=== PATIENT | male | born 1950 | race Caucasian/White ===

== ENCOUNTER 2016-11-18 11:59 | Inpatient (IN) | payer OTHER, MEDICARE ==
[~2016-11-18] VITALS: Ht 170.2 cm; Wt 78.0 kg
[2016-11-18] MEDS ORDERED: ZOLPIDEM TARTRATE 5 MG TAB PO PRN (14:15)
[2016-11-18] MEDS ORDERED: ONDANSETRON INJ 2 MG/ML 2 ML VIAL IV PRN (14:15)
[2016-11-18] MEDS ORDERED: GLUCAGON FOR INJ 1 MG VIAL SQ PRN (14:15)
[2016-11-18] MEDS ORDERED: GLUCOSE 10 TABS/TUBE PO PRN (14:15)
[2016-11-18] MEDS ORDERED: DEXTROSE 50% 50 ML SYR IV PRN (14:15)
[2016-11-18] MEDS ORDERED: GLUCOSE 40% GEL 15 GM TUBE PO PRN (14:15)
[2016-11-18 14:23] VITALS: BP 159/104; PULSE 84; TEMP 36.7; O2SAT 94; BMI 27.1
[2016-11-18] MEDS ORDERED: NURSING VERBAL MED ORDER ONE (14:45)
[2016-11-18] MEDS ORDERED: CARVEDILOL 25 MG TAB PO STA (14:52)
[2016-11-18] MEDS ORDERED: PATIENT'S ALLERGY INFO NEEDS ENTERED SCH (15:15)
[2016-11-18 15:17] LABS: BASO % 0.5 %; BASO ABS # 0.03 K/uL (0-0.2); EOS % 5.6 %; IG% 0.2 %; LYMPH % 21.7 %; LYMPH ABS # 1.24 K/uL (1.2-3.4); MEAN CELL VOLUME 88.6 fL (80-100); MEAN CORPUSCULAR HEMOGLOBIN 31.4 pg (25-34); MEAN PLATELET VOLUME 9.9 fL (7.4-10.4); MONO % 8.7 %; NEUT % 63.3 %; PLATELET COUNT 209 K/uL (130-400); RED BLOOD COUNT 4.74 M/uL (4.7-6.1); WHITE BLOOD COUNT 5.72 K/uL (4.8-10.8)
[2016-11-18 15:21] LABS: COMPLETE YES; MEAN CORPUSCULAR HGB CONC 35.5 g/dl (32-36)
[2016-11-18] MEDS ORDERED: CARV25TA2 PO (15:26)
[2016-11-18] MEDS ORDERED: SIMV40TA2 PO (15:26)
[2016-11-18] MEDS ORDERED: IBUP-1428 PO (15:26)
[2016-11-18] MEDS ORDERED: METF-384 PO (15:26)
[2016-11-18] MEDS ORDERED: SITA100T3 PO (15:26)
[2016-11-18] MEDS ORDERED: AMLO-110 PO (15:26)
[2016-11-18] MEDS ORDERED: ASPI-461 (15:26)
[2016-11-18] MEDS ORDERED: GLIP10TA10 (15:26)
[2016-11-18 15:29] LABS: INR 1.1 (0.9-1.1); PROTHROMBIN TIME (PATIENT) 11.4 SECONDS (9.0-12.0)
--- NOTE | 2016-11-18 15:41 | History and Physical ---
History & Physical Date & Time of Service: Nov 18, 2016 at 15:39 Chief Complaint: Pancreatic Cancer W/Liver Mets Primary Care Physician: Isai Chambers MD, Urology History of Present Illness Source: patient The patient is a 66-year-old male who presented to [facility] emergency department with 6 weeks of abdominal discomfort and nausea. He underwent a CT of the abdomen and pelvis during his stay there, which was significant for pancreatic lesions and hepatic lesions suggestive of pancreatic cancer with metastases to the liver. He was then referred to [facility] for further evaluation. Family History Non-contributory Social History Smoking Status: Former Smoker Smokeless Tobacco Use: No Alcohol Use: none Drug Use: none Marital Status: Housing status: lives with family Occupational Status: retired Immunizations History of Influenza Vaccine: Unknown History of Tetanus Vaccine?: Unknown History of Pneumococcal: Unknown History of Hepatitis B Vaccine: Unknown Multi-Drug Resistant Organisms History of MDRO: No Allergies Coded Allergies: Lisinopril (Verified Adverse Reaction, Unknown, cough, 11/18/16) Home Medications Scheduled Amlodipine (Norvasc), 5 MG PO DAILY Carvedilol (Coreg), 1 TAB PO BID Metformin Hcl (Glucophage), 1,000 MG PO BID Simvastatin (Zocor), 40 MG PO QPM Sitagliptin Phosphate (Januvia), 100 MG PO DAILY Scheduled PRN Ibuprofen (Motrin), 800 MG PO for Pain Miscellaneous Medications Aspirin (Aspirin) Glipizide (Glipizide) Review of Systems The patient denies chest pain, palpitations, shortness of breath, cough, lower extremity swelling, vision change, hearing change, sore throat, fevers, chills, sweats, vomiting, diarrhea or constipation, blood in urine or stool, dysuria, urinary frequency or urgency, lightheadedness, dizziness, headache, memory loss , rash, abnormal bruising or bleeding, imbalance, focal or generalized weakness , numbness or tingling in arms or legs, generalized arthralgias or myalgias, back or neck pain, night sweats. The review of systems is otherwise negative other than for that already noted above, and at least 10 systems have been reviewed. Physical Exam Vital Signs Date Time Temp Pulse Resp B/P (MAP) Pulse Ox O2 Delivery O2 Flow Rate FiO2 11/18/16 14:23 36.7 84 20 159/104 94 Room Air The patient is awake, well-developed and adequately nourished, alert and oriented 3, normocephalic and atraumatic, lying in bed and in no acute distress. HEENT--PERRL, EOMI, mucous membranes and oropharynx normal. Neck--supple, no JVD or bruits, thyroid normal, trachea midline, no adenopathy. Heart--normal S1 and S2, no extra beats, no murmurs, rubs or gallops. Lungs--clear bilaterally with good air movement, no respiratory distress, no accessory muscle use. Abdomen--normal bowel sounds and soft, nontender and nondistended, no hernias or masses, no organomegaly. Extremities--no cyanosis, clubbing or edema. There are good distal pulses b/l. Dermatologic--normal skin turgor, normal color, warm and dry, no abnormal lymph nodes, no rash. Neurologic--cranial nerves II through XII grossly intact, motor and sensory examination normal. Rheumatologic--normal range of motion, nontender, muscles and joints. Psychiatric--normal affect. Diagnostics Laboratory Results Results Past 24 Hours Test 11/18/16 14:57 Range/Units White Blood Count 5.72 4.8-10.8 K/uL Red Blood Count 4.74 4.7-6.1 M/uL Hemoglobin 14.9 14.0-18.0 g/dL Hematocrit 42.0 42-52 % Mean Corpuscular Volume 88.6 80-100 fL Mean Corpuscular Hemoglobin 31.4 25-34 pg Mean Corpuscular Hemoglobin Concent 35.5 32-36 g/dl Platelet Count 209 130-400 K/uL Mean Platelet Volume 9.9 7.4-10.4 fL Neutrophils (%) (Auto) 63.3 % Lymphocytes (%) (Auto) 21.7 % Monocytes (%) (Auto) 8.7 % Eosinophils (%) (Auto) 5.6 % Basophils (%) (Auto) 0.5 % Neutrophils # (Auto) 3.62 1.4-6.5 K/uL Lymphocytes # (Auto) 1.24 1.2-3.4 K/uL Monocytes # (Auto) 0.50 0.11-0.59 K/uL Eosinophils # (Auto) 0.32 0-0.5 K/uL Basophils # (Auto) 0.03 0-0.2 K/uL RDW Standard Deviation 41.9 36.4-46.3 fL RDW Coefficient of Variation 13.0 11.5-14.5 % Immature Granulocyte % (Auto) 0.2 % Immature Granulocyte # (Auto) 0.01 0.00-0.02 K/uL Prothrombin Time 11.4 9.0-12.0 SECONDS Prothromb Time International Ratio 1.1 0.9-1.1 Activated Partial Thromboplast Time 25.9 21.0-31.0 SECONDS Partial Thromboplastin Ratio 1.0 Impression Assessment and Plan Presumptive pancreatic cancer with metastases to liver--patient is admitted to the medical floor. He'll be made nothing by mouth after midnight Schedule an ultrasound-guided liver biopsy by radiology tomorrow. Place on normal saline with KCl 20 mEq 100 ML's per hour. Famotidine 20 mg IV every 12 hours. Zofran 4 mg IV every 6 hours when necessary. Diabetes mellitus--hold . Glipizide, Januvia and metformin Place on Accu-Cheks before meals and at bedtime with NovoLog coverage per scale. Hypertension--continue carvedilol 25 mg by mouth twice a day, and amlodipine 5 mg by mouth daily. Hyperlipidemia--continue simvastatin 40 mg by mouth daily Level of Care Med/Surg Advanced Directives Existing Advance Directive: Yes Existing Living Will: No Existing Power of Director Of Curriculum And Instruction: No Resuscitation Status DO NOT RESUSCITATE VTE Prophylaxis VTE Risk Assessment Done? Y/N: Yes Risk Level: Moderate Given or contraindicated: SCD's Social Service Consult None Apply
[2016-11-18 15:45] VITALS: BP 145/88; PULSE 76; TEMP 36.4; O2SAT 96
[2016-11-18 15:46] LABS: BUN/CREATININE RATIO 13.6 (10-20); CALCIUM 9.1 mg/dl (8.5-10.1); CREATININE 0.76 mg/dl (0.60-1.40); POTASSIUM 4.1 mmol/L (3.5-5.1)
[2016-11-18 15:48] LABS: ALB/GLOB RATIO 0.9 (0.9-2)
[2016-11-18 15:55] LABS: AMYLASE 86 U/L (25-115)
[2016-11-18 17:17] VITALS: BP 147/89
--- NOTE | 2016-11-18 17:17 | Oncology Consultation ---
Oncology/Heme Consultation Date of Consultation: Nov 18, 2016. Attending Physician: Kavin Castellanos M.D. Reason for Consultation: Small pancreatic carcinoma with liver metastases History of Present Illness Mr. Lin is a 66-year-old gentleman that for the past 6 weeks has had some midepigastric discomfort. This led to a CT scan done yesterday at [facility] that showed a pancreatic mass as well as small lesions within the liver consistent with hepatic metastasis. The patient was transferred here for further diagnostic studies. He denies any weight loss. Denies any nausea vomiting or change of bowel habits. His past medical history includes a myocardial infarction in the past and he has a history of 12 years of diabetes. Past Medical/Surgical History Pancreatica lesion with possible liver metastasis Family History No family history of carcinoma for what I can gather Social History Negative for significant smoking or alcohol usage. Smoking Status: Former Smoker Smokeless Tobacco Use: No Alcohol Use: none Drug Use: none Marital Status: Occupation Status: retired Allergies Coded Allergies: Lisinopril (Verified Adverse Reaction, Unknown, cough, 11/18/16) Home Medications Scheduled Amlodipine (Norvasc), 5 MG PO DAILY Carvedilol (Coreg), 1 TAB PO BID Metformin Hcl (Glucophage), 1,000 MG PO BID Simvastatin (Zocor), 40 MG PO QPM Sitagliptin Phosphate (Januvia), 100 MG PO DAILY Scheduled PRN Ibuprofen (Motrin), 800 MG PO for Pain Miscellaneous Medications Aspirin (Aspirin) Glipizide (Glipizide) Current Inpatient Medications Current Inpatient Medications Medications (Trade) Dose Ordered Sig/[place] Route Start Time Stop Time Status Last Admin Dose Admin Zolpidem Tartrate (Ambien Tab) 5 mg HSZ PRN PO 11/18/16 14:15 12/18/16 14:14 Ondansetron HCl (Zofran Inj) 4 mg Q6H PRN IV 11/18/16 14:15 12/18/16 14:14 Insulin Aspart (novoLOG ASPART) SLIDING SCALE If C... ACHS SC 11/18/16 16:30 12/18/16 16:29 Glucose (Glucose 40% Gel) UD PRN PO 11/18/16 14:15 12/18/16 14:14 Glucose (Glucose Chew Tab) 1 tabs UD PRN PO 11/18/16 14:15 12/18/16 14:14 Dextrose (Dextrose 50% 50ML Syringe) 50 ml UD PRN IV 11/18/16 14:15 12/18/16 14:14 Glucagon (Glucagon Inj) 1 mg UD PRN SQ 11/18/16 14:15 12/18/16 14:14 Amlodipine Besylate (Norvasc Tab) 5 mg DAILY PO 11/19/16 08:00 12/19/16 07:59 Carvedilol (Coreg Tab) 25 mg BID PO 11/18/16 20:00 12/18/16 19:59 Simvastatin (Zocor Tab) 40 mg QPM PO 11/18/16 21:00 12/18/16 20:59 Review of Systems Constitutional: Negative for weight loss, night sweats, or fever Eyes: Negative for event change of vision ENT: Negative for epistaxis, nasal discharge, sore throat, or deafness Cardiovascular: Negative for chest pain, palpitations, dizziness, diaphoresis Respiratory: Negative for new shortness of breath,hemoptysis, or purulent cough Gastrointestinal: Negative for diarrhea, hematemesis, melena, nausea, vomiting , or dyspepsia Integumentary (skin): Negative for rash or jaundice discoloration Genitourinary: Negative for urinary frequency, hematuria, or dysuria Neurological: Negative for weakness, seizure activity, headache, or dizziness Lymphatic/Hematologic: Negative for petechiae, bleeding or new adenopathy Musculoskeletal: Negative for new joint or back pain Allergic/Immunologic: Negative for unusual rash or pruritis. Physical Exam Date Time Temp Pulse Resp B/P (MAP) Pulse Ox O2 Delivery O2 Flow Rate FiO2 11/18/16 16:00 Room Air 11/18/16 15:45 36.4 76 18 145/88 (107) 96 Room Air 11/18/16 14:23 36.7 84 20 159/104 94 Room Air Constitutional: vitals are stable. Eyes: Eyes are ALBERT EOMI without conjuctival erythema or icterus. ENT: External examination was negative for masses. Neck: Negative for masses or palpable thyromegaly Respiratory: Lung sounds were generally clear bilaterally Cardiovascular: Heart was RRR without significant murmur, gallops or rubs Gastrointestinal: No palpable hepatic or splenomegaly. The abdomen was soft with normal bowel sounds. Lymphatic system: there was no palpable peripheral lymphadenopathy Musculoskeletal System: The musculoskeletal system seemed concordant with age. Skin: The skin was negative for jaundice. Neurologic exam: The exam was negative for any focal findings. Deep tendon reflexes were equal and symmetrical. Psychiatric exam: Was essentially negative with normal mood and effect. Extremities: Negative for edema erythema Laboratory Results Last 24 Hours Test 11/18/16 14:57 11/18/16 16:56 White Blood Count 5.72 K/uL Red Blood Count 4.74 M/uL Hemoglobin 14.9 g/dL Hematocrit 42.0 % Mean Corpuscular Volume 88.6 fL Mean Corpuscular Hemoglobin 31.4 pg Mean Corpuscular Hemoglobin Concent 35.5 g/dl Platelet Count 209 K/uL Mean Platelet Volume 9.9 fL Neutrophils (%) (Auto) 63.3 % Lymphocytes (%) (Auto) 21.7 % Monocytes (%) (Auto) 8.7 % Eosinophils (%) (Auto) 5.6 % Basophils (%) (Auto) 0.5 % Neutrophils # (Auto) 3.62 K/uL Lymphocytes # (Auto) 1.24 K/uL Monocytes # (Auto) 0.50 K/uL Eosinophils # (Auto) 0.32 K/uL Basophils # (Auto) 0.03 K/uL RDW Standard Deviation 41.9 fL RDW Coefficient of Variation 13.0 % Immature Granulocyte % (Auto) 0.2 % Immature Granulocyte # (Auto) 0.01 K/uL Prothrombin Time 11.4 SECONDS Prothromb Time International Ratio 1.1 Activated Partial Thromboplast Time 25.9 SECONDS Partial Thromboplastin Ratio 1.0 Sodium Level 140 mmol/L Potassium Level 4.1 mmol/L Chloride Level 107 mmol/L Carbon Dioxide Level 27 mmol/L Anion Gap 6.0 mmol/L Blood Urea Nitrogen 10 mg/dl Creatinine 0.76 mg/dl Est Creatinine Clear Calc Drug Dose 88.2 ml/min Estimated GFR () 109.4 Estimated GFR (Non- 94.4 BUN/Creatinine Ratio 13.6 Random Glucose 206 mg/dl Calcium Level 9.1 mg/dl Total Bilirubin 0.4 mg/dl Direct Bilirubin 0.1 mg/dl Aspartate Amino Transf (AST/SGOT) 31 U/L Alanine Aminotransferase (ALT/SGPT) 55 U/L Alkaline Phosphatase 100 U/L Total Protein 7.4 gm/dl Albumin 3.5 gm/dl Globulin 3.9 gm/dl Albumin/Globulin Ratio 0.9 Amylase Level 86 U/L Lipase 462 U/L Hepatitis C Antibody Screen NEG Bedside Glucose 178 mg/dl Assessment & Plan Did review his CT scan that was done at [facility]. There is a pancreatic lesion perhaps even to lesions within the pancreas. No definite adenopathy is seen. There were nodules within the liver that are quite small multiple and could be biopsied although it might be difficult. I did review this with radiology. They will attempt an ultrasound-guided biopsy tomorrow. If that is not successful then GI will need to be consulted for possible endoscopic ultrasound biopsy. This was reviewed with the patient this evening as well as Dr. Castellanos
[2016-11-18] MEDS: INSULIN ASPART 100 UNITS/ML 3 ML PEN SC SCH ×2 (18:03→20:29)
[2016-11-18 19:27] VITALS: BP 149/91; PULSE 80; TEMP 36.8; O2SAT 95
[2016-11-18] MEDS: CARVEDILOL 25 MG TAB PO SCH (20:30)
[2016-11-18] MEDS: SIMVASTATIN 40 MG TAB PO SCH (20:30)
[2016-11-19] VITALS (8 sets, daily range): BP systolic 124–163; BP diastolic 82–99; PULSE 74–90; TEMP 36.5–36.8; O2SAT 94–97; BMI 26.8
[2016-11-19 07:38] LABS: BASO % 0.4 %; BASO ABS # 0.03 K/uL (0-0.2); COMPLETE YES; EOS % 4.4 %; HEMATOCRIT 43.2 % (42-52); IG% 0.1 %; LYMPH % 26.8 %; LYMPH ABS # 1.94 K/uL (1.2-3.4); MEAN CELL VOLUME 87.1 fL (80-100); MEAN CORPUSCULAR HEMOGLOBIN 31.5 pg (25-34); MEAN CORPUSCULAR HGB CONC 36.1 g/dl (32-36); MEAN PLATELET VOLUME 10.1 fL (7.4-10.4); MONO % 8.2 %; NEUT % 60.1 %; PLATELET COUNT 228 K/uL (130-400); RED BLOOD COUNT 4.96 M/uL (4.7-6.1); WHITE BLOOD COUNT 7.23 K/uL (4.8-10.8)
[2016-11-19 07:54] LABS: INR 1.1 (0.9-1.1); PROTHROMBIN TIME (PATIENT) 11.4 SECONDS (9.0-12.0)
[2016-11-19] MEDS: AMLODIPINE BESYLATE 5 MG TAB PO SCH (07:57)
[2016-11-19] MEDS: CARVEDILOL 25 MG TAB PO SCH ×2 (07:58→20:10)
[2016-11-19 08:10] LABS: BUN/CREATININE RATIO 15.3 (10-20); CALCIUM 9.5 mg/dl (8.5-10.1); CREATININE 0.79 mg/dl (0.60-1.40); POTASSIUM 3.9 mmol/L (3.5-5.1)
[2016-11-19] MEDS ORDERED: MoRPHine SULFATE 4 MG/ML 1 ML CARP\\VIAL ONE (08:13)
[2016-11-19] MEDS ORDERED: NURSING VERBAL MED ORDER ONE (08:15)
[2016-11-19] MEDS: INSULIN ASPART 100 UNITS/ML 3 ML PEN SC SCH ×4 (08:40→20:10)
--- NOTE | 2016-11-19 08:59 | GASTROINTESTINAL CONSULTATION ---
DATE OF CONSULTATION: 11/19/2016 DATE OF CONSULTATION: 11/19/2016 REASON FOR EVALUATION: Pancreatic tumor. HISTORY OF PRESENT ILLNESS: The patient is a 66-year-old male with 12-year history of diabetes who has had a 6-week history of upper abdominal pain. The pain is kind of diffuse in nature and is worse when lying on his back. He does have a little bit of right flank pain associated with it. This led to a CAT scan at [facility] which showed a mass in the pancreas and 6 or 7 lesions in the liver suggestive of hepatic metastases. The patient was transferred to [facility] for further evaluation. The patient has had no loss of appetite, weight loss, nausea or vomiting. He is scheduled for an ultrasound guided biopsy of liver lesions about 2:00 this afternoon. PAST MEDICAL HISTORY: Remarkable for diabetes for 12 years. He also had an LA in the past. MEDICATIONS: Norvasc, Coreg, Glucophage, Zocor, and Januvia. ALLERGIES: LISINOPRIL. FAMILY HISTORY: Negative. SOCIAL HISTORY: The patient is . He is retired, former smoker. No history of significant alcohol use. REVIEW OF SYSTEMS: Positive only for the abdominal pain. Otherwise, negative for other systems. PHYSICAL EXAMINATION: GENERAL: The patient appears awake, alert, in no acute distress. VITAL SIGNS: Blood pressure is 145/88, pulse 76, respirations 18. ABDOMEN: Soft. There is no mass or hepatosplenomegaly, no tenderness. There is no adenopathy in the periumbilical area, cervical or supraclavicular areas. Skin was nonicteric. LABORATORY: Showed normal liver tests. Lipase was elevated at 462. Amylase was normal at 86. IMPRESSION: The patient has upper abdominal pain with a pancreatic lesion and liver lesion suggestive of pancreatic cancer with liver mets. He is scheduled for ultrasound guided liver biopsy today. If this is positive for malignant cells then he is probably not an operative candidate. If they are not successful in getting adequate tissue today then he may be a candidate for endoscopic ultrasound which we may be able to accomplish later this week if needed. We will follow the patient during his hospital stay.
--- NOTE | 2016-11-19 11:01 | Hematology/Oncology Prog Note ---
Hematology/Onc Progress Note Date of Service Nov 19, 2016. Diagnoses Possible pancreatic carcinoma with liver metastasis Medications Medications Administered Medications (Trade) Dose Ordered Sig/[place] Route Start Time Stop Time Status Last Admin Dose Admin Insulin Aspart (novoLOG ASPART) SLIDING SCALE If C... ACHS SC 11/18/16 16:30 12/18/16 16:29 11/18/16 18:03 6 UNITS Carvedilol (Coreg Tab) 25 mg NOW STAT PO 11/18/16 14:52 11/18/16 14:53 DC 11/18/16 15:34 25 MG Amlodipine Besylate (Norvasc Tab) 5 mg DAILY PO 11/19/16 08:00 12/19/16 07:59 11/19/16 07:57 5 MG Carvedilol (Coreg Tab) 25 mg BID PO 11/18/16 20:00 12/18/16 19:59 11/19/16 07:58 25 MG Simvastatin (Zocor Tab) 40 mg QPM PO 11/18/16 21:00 12/18/16 20:59 11/18/16 20:30 40 MG Morphine Sulfate (MoRPHine SULFATE INJ) 4 mg STK-MED ONCE .ROUTE 11/19/16 08:13 11/19/16 08:14 DC 11/19/16 08:19 4 MG Subjective Seems to be doing well. Scheduled for a ultrasound-guided biopsy of liver lesions for this afternoon Review of Systems: Constitutional: Negative for night sweats, or fever Eyes: Negative for event change of vision ENT: Negative for epistaxis, nasal discharge, sore throat, or deafness Cardiovascular: Negative for chest pain, palpitations, dizziness, diaphoresis Respiratory: Negative for new shortness of breath,hemoptysis, or purulent cough Gastrointestinal: Negative for diarrhea, hematemesis, melena, nausea, vomiting , or dyspepsia Integumentary (skin): Negative for rash or jaundice discoloration Genitourinary: Negative for urinary frequency, hematuria, or dysuria Neurological: Negative for weakness, seizure activity, headache, or dizziness Lymphatic/Hematologic: Negative for petechiae, bleeding or new adenopathy Musculoskeletal: Negative for new joint or back pain Allergic/Immunologic: Negative for unusual rash or pruritis. Vital Signs Vital Signs Past 12 Hours Date Time Temp Pulse Resp B/P (MAP) Pulse Ox O2 Delivery O2 Flow Rate FiO2 11/19/16 08:22 36.7 90 20 158/98 (118) 95 Room Air 11/19/16 04:12 36.6 75 20 163/99 (120) 97 Room Air 11/19/16 00:23 36.5 74 20 155/97 (116) 94 Room Air 11/19/16 00:01 Room Air 11/18/16 23:56 Room Air Physical Exam Constitutional: vitals are stable. Eyes: Eyes are ALBERT EOMI without conjuctival erythema or icterus. ENT: External examination was negative for masses. Neck: Negative for masses or palpable thyromegaly Respiratory: Lung sounds were generally clear bilaterally Cardiovascular: Heart was RRR without significant murmur, gallops aoe rubs Gastrointestinal: No palpable hepatic or splenomegaly. The abdomen was soft with normal bowel sounds. Lymphatic system: there was no palpable peripheral lymphadenopathy Musculoskeletal System: The musculoskeletal system seemed concordant with age. Skin: The skin was negative for jaundice. Neurologic exam: The exam was negative for any focal findings. Deep tendon reflexes were equal and symmetrical. Psychiatric exam: Was essentially negative with normal mood and effect. Extremities: Negative for edema erythema Laboratory Last 24 Hours Test 11/18/16 14:57 11/18/16 16:56 11/18/16 19:48 11/19/16 06:49 White Blood Count 5.72 K/uL 7.23 K/uL Red Blood Count 4.74 M/uL 4.96 M/uL Hemoglobin 14.9 g/dL 15.6 g/dL Hematocrit 42.0 % 43.2 % Mean Corpuscular Volume 88.6 fL 87.1 fL Mean Corpuscular Hemoglobin 31.4 pg 31.5 pg Mean Corpuscular Hemoglobin Concent 35.5 g/dl 36.1 g/dl Platelet Count 209 K/uL 228 K/uL Mean Platelet Volume 9.9 fL 10.1 fL Neutrophils (%) (Auto) 63.3 % 60.1 % Lymphocytes (%) (Auto) 21.7 % 26.8 % Monocytes (%) (Auto) 8.7 % 8.2 % Eosinophils (%) (Auto) 5.6 % 4.4 % Basophils (%) (Auto) 0.5 % 0.4 % Neutrophils # (Auto) 3.62 K/uL 4.34 K/uL Lymphocytes # (Auto) 1.24 K/uL 1.94 K/uL Monocytes # (Auto) 0.50 K/uL 0.59 K/uL Eosinophils # (Auto) 0.32 K/uL 0.32 K/uL Basophils # (Auto) 0.03 K/uL 0.03 K/uL RDW Standard Deviation 41.9 fL 41.8 fL RDW Coefficient of Variation 13.0 % 13.1 % Immature Granulocyte % (Auto) 0.2 % 0.1 % Immature Granulocyte # (Auto) 0.01 K/uL 0.01 K/uL Prothrombin Time 11.4 SECONDS 11.4 SECONDS Prothromb Time International Ratio 1.1 1.1 Activated Partial Thromboplast Time 25.9 SECONDS 26.7 SECONDS Partial Thromboplastin Ratio 1.0 1.0 Sodium Level 140 mmol/L 136 mmol/L Potassium Level 4.1 mmol/L 3.9 mmol/L Chloride Level 107 mmol/L 102 mmol/L Carbon Dioxide Level 27 mmol/L 23 mmol/L Anion Gap 6.0 mmol/L 11.0 mmol/L Blood Urea Nitrogen 10 mg/dl 12 mg/dl Creatinine 0.76 mg/dl 0.79 mg/dl Est Creatinine Clear Calc Drug Dose 88.2 ml/min 84.9 ml/min Estimated GFR () 109.4 107.7 Estimated GFR (Non- 94.4 92.9 BUN/Creatinine Ratio 13.6 15.3 Random Glucose 206 mg/dl 194 mg/dl Calcium Level 9.1 mg/dl 9.5 mg/dl Total Bilirubin 0.4 mg/dl 0.5 mg/dl Direct Bilirubin 0.1 mg/dl 0.1 mg/dl Aspartate Amino Transf (AST/SGOT) 31 U/L 22 U/L Alanine Aminotransferase (ALT/SGPT) 55 U/L 48 U/L Alkaline Phosphatase 100 U/L 103 U/L Total Protein 7.4 gm/dl 7.7 gm/dl Albumin 3.5 gm/dl 3.7 gm/dl Globulin 3.9 gm/dl Albumin/Globulin Ratio 0.9 Amylase Level 86 U/L Lipase 462 U/L Hepatitis C Antibody Screen NEG Bedside Glucose 178 mg/dl 151 mg/dl Magnesium Level 2.0 mg/dl Test 11/19/16 08:21 Bedside Glucose 195 mg/dl Assessment & Plan CT scan changes consistent with possible pancreatic neoplasm with liver metastasis. Ultrasound-guided biopsy of the liver is scheduled for this afternoon. He is aware that if these small lesions cannot be assessed by ultrasound that an endoscopic GI biopsy may be necessary
--- NOTE | 2016-11-19 12:32 | Progress Note ---
Subjective Date of Service: Nov 19, 2016. Subjective Pt evaluation today including: conversation w/ patient, physical exam, chart review, lab review, review of studies, conversation w/ recruitment consultant, review of inpatient medication list Doing fair, no complaining, is on nothing by mouth, planning to have biopsy this afternoon Review of Systems Constitutional: No fever, No chills, No sweats, No weight loss, No weakness, No fatigue, No problem reported Eyes: No worsening of vision, No eye pain, No redness, No discharge, No diplopia ENT: No hearing loss, No unusual epistaxis, No nasal symptoms, No sore throat, No tinnitus, No dental problems, No trouble swallowing Respiratory: No cough, No sputum, No wheezing, No shortness of breath, No dyspnea on exertion, No dyspnea at rest, No hemoptysis Cardiac: No chest pain, No orthopnea, No PND, No edema, No claudication, No palpitations Abdomen: No pain, No nausea, No vomiting, No diarrhea, No constipation Musculoskeletal: No joint pain, No muscle pain, No swelling, No calf pain Male : No dysuria, No urinary frequency, No incontinence, No nocturia more than once/night, No slowing stream, No hematuria Neurologic: No memory loss, No paralysis, No weakness, No numbness/tingling, No vertigo, No balance problems Psychiatric: No depression symptoms, No anhedonism, No anxiety, No insomnia, No substance abuse Heme: No abnormal bleeding/bruising, No clotting problems, No swollen lymph nodes, No night sweats Endo: No fatigue, No excessive thirst, No excessive urination Skin: No rash, No itch, No new/changing skin lesions, No color change, No bleeding Objective Vital Signs Date Time Temp Pulse Resp B/P (MAP) Pulse Ox O2 Delivery O2 Flow Rate FiO2 11/19/16 11:27 36.6 77 18 142/82 (102) 94 Room Air 11/19/16 11:20 Room Air 11/19/16 08:22 36.7 90 20 158/98 (118) 95 Room Air 11/19/16 04:12 36.6 75 20 163/99 (120) 97 Room Air 11/19/16 00:23 36.5 74 20 155/97 (116) 94 Room Air 11/19/16 00:01 Room Air 11/18/16 23:56 Room Air 11/18/16 19:27 36.8 80 18 149/91 (110) 95 Room Air 11/18/16 17:17 147/89 (108) 11/18/16 16:00 Room Air 11/18/16 15:45 36.4 76 18 145/88 (107) 96 Room Air 11/18/16 14:23 36.7 84 20 159/104 94 Room Air Physical Exam General Appearance: WD/WN, no apparent distress Eyes: normal inspection, PERRL, EOMI, sclerae normal ENT: normal ENT inspection, hearing grossly normal, pharynx normal Neck: supple, no adenopathy, thyroid normal, no JVD, no carotid bruits, trachea midline Respiratory/Chest: chest non-tender, lungs clear, normal breath sounds, no respiratory distress, no accessory muscle use, + decreased breath sounds Cardiovascular: regular rate, rhythm, no edema, no gallop, no JVD, no murmur Abdomen: normal bowel sounds, non tender, soft, no organomegaly, no pulsatile mass Extremities: normal range of motion, non-tender, normal inspection, no pedal edema, no calf tenderness, normal capillary refill, pelvis stable 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, no motor/sensory deficits, alert, normal mood/affect, oriented x 3 Skin: normal color, warm/dry, no rash Lymphatic: no adenopathy Laboratory Results Last 24 Hours Test 11/18/16 14:57 11/18/16 16:56 11/18/16 19:48 11/19/16 06:49 White Blood Count 5.72 K/uL 7.23 K/uL Red Blood Count 4.74 M/uL 4.96 M/uL Hemoglobin 14.9 g/dL 15.6 g/dL Hematocrit 42.0 % 43.2 % Mean Corpuscular Volume 88.6 fL 87.1 fL Mean Corpuscular Hemoglobin 31.4 pg 31.5 pg Mean Corpuscular Hemoglobin Concent 35.5 g/dl 36.1 g/dl Platelet Count 209 K/uL 228 K/uL Mean Platelet Volume 9.9 fL 10.1 fL Neutrophils (%) (Auto) 63.3 % 60.1 % Lymphocytes (%) (Auto) 21.7 % 26.8 % Monocytes (%) (Auto) 8.7 % 8.2 % Eosinophils (%) (Auto) 5.6 % 4.4 % Basophils (%) (Auto) 0.5 % 0.4 % Neutrophils # (Auto) 3.62 K/uL 4.34 K/uL Lymphocytes # (Auto) 1.24 K/uL 1.94 K/uL Monocytes # (Auto) 0.50 K/uL 0.59 K/uL Eosinophils # (Auto) 0.32 K/uL 0.32 K/uL Basophils # (Auto) 0.03 K/uL 0.03 K/uL RDW Standard Deviation 41.9 fL 41.8 fL RDW Coefficient of Variation 13.0 % 13.1 % Immature Granulocyte % (Auto) 0.2 % 0.1 % Immature Granulocyte # (Auto) 0.01 K/uL 0.01 K/uL Prothrombin Time 11.4 SECONDS 11.4 SECONDS Prothromb Time International Ratio 1.1 1.1 Activated Partial Thromboplast Time 25.9 SECONDS 26.7 SECONDS Partial Thromboplastin Ratio 1.0 1.0 Sodium Level 140 mmol/L 136 mmol/L Potassium Level 4.1 mmol/L 3.9 mmol/L Chloride Level 107 mmol/L 102 mmol/L Carbon Dioxide Level 27 mmol/L 23 mmol/L Anion Gap 6.0 mmol/L 11.0 mmol/L Blood Urea Nitrogen 10 mg/dl 12 mg/dl Creatinine 0.76 mg/dl 0.79 mg/dl Est Creatinine Clear Calc Drug Dose 88.2 ml/min 84.9 ml/min Estimated GFR () 109.4 107.7 Estimated GFR (Non- 94.4 92.9 BUN/Creatinine Ratio 13.6 15.3 Random Glucose 206 mg/dl 194 mg/dl Calcium Level 9.1 mg/dl 9.5 mg/dl Total Bilirubin 0.4 mg/dl 0.5 mg/dl Direct Bilirubin 0.1 mg/dl 0.1 mg/dl Aspartate Amino Transf (AST/SGOT) 31 U/L 22 U/L Alanine Aminotransferase (ALT/SGPT) 55 U/L 48 U/L Alkaline Phosphatase 100 U/L 103 U/L Total Protein 7.4 gm/dl 7.7 gm/dl Albumin 3.5 gm/dl 3.7 gm/dl Globulin 3.9 gm/dl Albumin/Globulin Ratio 0.9 Amylase Level 86 U/L Lipase 462 U/L Hepatitis C Antibody Screen NEG Bedside Glucose 178 mg/dl 151 mg/dl Magnesium Level 2.0 mg/dl Test 11/19/16 08:21 11/19/16 11:25 Bedside Glucose 195 mg/dl 219 mg/dl Assessment and Plan 66-year-old white male admitted because of presumptive pancreatic cancer with metastases to liver GI and oncology on the case, recent CT scan changes consistent with possible pancreatic neoplasm with liver metastasis. Ultrasound-guided biopsy of the liver is scheduled for this afternoon. He is aware that if these small lesions cannot be assessed by EUS biopsy may be necessary Continue nothing by mouth Continue normal saline with KCl 20 mEq 100 ML's per hour. Famotidine 20 mg IV every 12 hours. Zofran 4 mg IV every 6 hours when necessary. Diabetes mellitus: hold . Glipizide, Januvia and metformin Continue sliding scale Hypertension--continue carvedilol 25 mg by mouth twice a day, and amlodipine 5 mg by mouth daily. Hyperlipidemia--continue simvastatin 40 mg by mouth daily GI and DVT prophylaxis is covered Discussed with patient about care plan, answer all questions Continued [facility] stay due to: multiple IV medications needed Discharge planning: uncertain
--- NOTE | 2016-11-19 15:06 | DIAGNOSTIC IMAGING REPORT ---
ULTRASOUND GUIDED BIOPSY OF RIGHT HEPATIC LOBE LESION CLINICAL HISTORY: Liver lesions. Request for biopsy. COMPARISON STUDY: CT of the abdomen and pelvis November 18, 2016. PROCEDURE: Preprocedure ultrasound demonstrated multiple hypoechoic hepatic lesions which correspond to the lesions shown on CT of November 18, 2016. These measure up to 1 cm. The lesion most amenable to biopsy was within the anterior segment of the right hepatic lobe and measures 9 mm. This was targeted for biopsy. The procedure, risks and benefits were discussed with the patient including the risk of bleeding, infection and injury to adjacent structures. The patient agreed to the procedure and informed written consent was obtained. The procedure was performed by Dr. Vogt following a timeout. Skin of the right upper quadrant was prepped and draped in sterile fashion and local anesthesia was achieved with 1% lidocaine. Under direct ultrasound guidance, 3 22-gauge fine needle aspirations were performed utilizing Gigi needles. The needle tip within the target lesion 3 times. Atypical cells were noted on the second pass. Adequacy was borderline. No additional sampling was performed given 3 passes and the small size of the lesion. The patient tolerated the procedure well and no immediate complications were evident. IMPRESSION: Ultrasound guided fine needle aspiration of 9 mm right hepatic lobe lesion. Electronically signed by: Jeb Vogt M.D. 11/19/2016 3:05 PM Dictated Date/Time: 11/19/2016 3:02 PM
[2016-11-19] MEDS: SIMVASTATIN 40 MG TAB PO SCH (20:10)
[2016-11-20] VITALS (7 sets, daily range): BP systolic 104–148; BP diastolic 71–92; PULSE 65–74; TEMP 36.5–36.8; O2SAT 92–97; BMI 26.6
[2016-11-20 06:40] LABS: BASO % 0.3 %; BASO ABS # 0.02 K/uL (0-0.2); COMPLETE YES; EOS % 4.9 %; HEMATOCRIT 42.5 % (42-52); IG% 0.1 %; LYMPH % 27.3 %; LYMPH ABS # 2.08 K/uL (1.2-3.4); MEAN CELL VOLUME 88.7 fL (80-100); MEAN CORPUSCULAR HEMOGLOBIN 30.3 pg (25-34); MEAN CORPUSCULAR HGB CONC 34.1 g/dl (32-36); MEAN PLATELET VOLUME 9.8 fL (7.4-10.4); MONO % 6.8 %; NEUT % 60.6 %; PLATELET COUNT 218 K/uL (130-400); RED BLOOD COUNT 4.79 M/uL (4.7-6.1); WHITE BLOOD COUNT 7.61 K/uL (4.8-10.8)
[2016-11-20 06:55] LABS: INR 1.1 (0.9-1.1); PROTHROMBIN TIME (PATIENT) 11.5 SECONDS (9.0-12.0)
[2016-11-20 07:15] LABS: BUN/CREATININE RATIO 20.2 (10-20); CALCIUM 9.1 mg/dl (8.5-10.1); CREATININE 0.94 mg/dl (0.60-1.40); MAGNESIUM 2.2 mg/dl (1.8-2.4); POTASSIUM 4.3 mmol/L (3.5-5.1)
[2016-11-20] MEDS: AMLODIPINE BESYLATE 5 MG TAB PO SCH (08:27)
[2016-11-20] MEDS: CARVEDILOL 25 MG TAB PO SCH ×2 (08:27→19:34)
[2016-11-20] MEDS: INSULIN ASPART 100 UNITS/ML 3 ML PEN SC SCH ×4 (08:34→20:45)
--- NOTE | 2016-11-20 10:06 | Hematology/Oncology Prog Note ---
Hematology/Onc Progress Note Date of Service Nov 20, 2016. Diagnoses Possible pancreatic carcinoma with liver metastasis Medications Medications Administered Medications (Trade) Dose Ordered Sig/[place] Route Start Time Stop Time Status Last Admin Dose Admin Insulin Aspart (novoLOG ASPART) SLIDING SCALE If C... ACHS SC 11/18/16 16:30 12/18/16 16:29 11/20/16 08:34 9 UNITS Carvedilol (Coreg Tab) 25 mg NOW STAT PO 11/18/16 14:52 11/18/16 14:53 DC 11/18/16 15:34 25 MG Amlodipine Besylate (Norvasc Tab) 5 mg DAILY PO 11/19/16 08:00 12/19/16 07:59 11/20/16 08:27 5 MG Carvedilol (Coreg Tab) 25 mg BID PO 11/18/16 20:00 12/18/16 19:59 11/20/16 08:27 25 MG Simvastatin (Zocor Tab) 40 mg QPM PO 11/18/16 21:00 12/18/16 20:59 11/19/16 20:10 40 MG Morphine Sulfate (MoRPHine SULFATE INJ) 4 mg STK-MED ONCE .ROUTE 11/19/16 08:13 11/19/16 08:14 DC 11/19/16 08:19 4 MG Subjective Offers no new complaints today Review of Systems: Constitutional: Negative for night sweats, or fever Eyes: Negative for event change of vision ENT: Negative for epistaxis, nasal discharge, sore throat, or deafness Cardiovascular: Negative for chest pain, palpitations, dizziness, diaphoresis Respiratory: Negative for new shortness of breath,hemoptysis, or purulent cough Gastrointestinal: Negative for diarrhea, hematemesis, melena, nausea, vomiting , or dyspepsia Integumentary (skin): Negative for rash or jaundice discoloration Genitourinary: Negative for urinary frequency, hematuria, or dysuria Neurological: Negative for weakness, seizure activity, headache, or dizziness Lymphatic/Hematologic: Negative for petechiae, bleeding or new adenopathy Musculoskeletal: Negative for new joint or back pain Allergic/Immunologic: Negative for unusual rash or pruritis. Vital Signs Vital Signs Past 12 Hours Date Time Temp Pulse Resp B/P (MAP) Pulse Ox O2 Delivery O2 Flow Rate FiO2 8/30/17 08:26 36.5 72 18 148/92 (110) 93 Room Air 11/20/16 08:00 Room Air 11/20/16 04:41 36.7 71 20 136/87 (103) 97 Room Air 11/20/16 00:29 36.6 67 20 132/84 (100) 97 Room Air 11/20/16 00:05 Room Air Physical Exam Constitutional: vitals are stable. Eyes: Eyes are ALBERT EOMI without conjuctival erythema or icterus. ENT: External examination was negative for masses. Neck: Negative for masses or palpable thyromegaly Respiratory: Lung sounds were generally clear bilaterally Cardiovascular: Heart was RRR without significant murmur, gallops aoe rubs Gastrointestinal: No palpable hepatic or splenomegaly. The abdomen was soft with normal bowel sounds. Lymphatic system: there was no palpable peripheral lymphadenopathy Musculoskeletal System: The musculoskeletal system seemed concordant with age. Skin: The skin was negative for jaundice. Neurologic exam: The exam was negative for any focal findings. Deep tendon reflexes were equal and symmetrical. Psychiatric exam: Was essentially negative with normal mood and effect. Extremities: Negative for edema erythema Laboratory Last 24 Hours Test 11/19/16 11:25 11/19/16 16:37 11/19/16 20:07 11/20/16 06:19 Bedside Glucose 219 mg/dl 231 mg/dl 140 mg/dl White Blood Count 7.61 K/uL Red Blood Count 4.79 M/uL Hemoglobin 14.5 g/dL Hematocrit 42.5 % Mean Corpuscular Volume 88.7 fL Mean Corpuscular Hemoglobin 30.3 pg Mean Corpuscular Hemoglobin Concent 34.1 g/dl Platelet Count 218 K/uL Mean Platelet Volume 9.8 fL Neutrophils (%) (Auto) 60.6 % Lymphocytes (%) (Auto) 27.3 % Monocytes (%) (Auto) 6.8 % Eosinophils (%) (Auto) 4.9 % Basophils (%) (Auto) 0.3 % Neutrophils # (Auto) 4.61 K/uL Lymphocytes # (Auto) 2.08 K/uL Monocytes # (Auto) 0.52 K/uL Eosinophils # (Auto) 0.37 K/uL Basophils # (Auto) 0.02 K/uL RDW Standard Deviation 42.7 fL RDW Coefficient of Variation 13.1 % Immature Granulocyte % (Auto) 0.1 % Immature Granulocyte # (Auto) 0.01 K/uL Prothrombin Time 11.5 SECONDS Prothromb Time International Ratio 1.1 Activated Partial Thromboplast Time 25.3 SECONDS Partial Thromboplastin Ratio 1.0 Sodium Level 137 mmol/L Potassium Level 4.3 mmol/L Chloride Level 105 mmol/L Carbon Dioxide Level 26 mmol/L Anion Gap 6.0 mmol/L Blood Urea Nitrogen 19 mg/dl Creatinine 0.94 mg/dl Est Creatinine Clear Calc Drug Dose 71.3 ml/min Estimated GFR () 96.8 Estimated GFR (Non- 83.6 BUN/Creatinine Ratio 20.2 Random Glucose 188 mg/dl Calcium Level 9.1 mg/dl Magnesium Level 2.2 mg/dl Total Bilirubin 0.5 mg/dl Direct Bilirubin 0.1 mg/dl Aspartate Amino Transf (AST/SGOT) 15 U/L Alanine Aminotransferase (ALT/SGPT) 44 U/L Alkaline Phosphatase 92 U/L Total Protein 6.9 gm/dl Albumin 3.3 gm/dl Test 11/20/16 07:49 Bedside Glucose 192 mg/dl Assessment & Plan Preliminary look at the material from yesterday's liver biopsy does not definitely show metastatic carcinoma or even fact carcinoma. As I review this I believe it will be crucial to understand the defects in the liver. If in fact this is metastatic carcinoma to the liver then issues such as possible resection of a pancreatic lesion if in fact he has pancreatic carcinoma are removed from being an option. I reviewed this with the patient. I will check back with pathology in the next couple of hours to get any updates but if in fact he continues to be results continue to not show neoplasm then I would prefer a surgical laparoscopic assessment not only of the pancreas but also of the liver with biopsies of both the liver and pancreas to assess and understand the changes we see on x-ray. This could probably happen then as an outpatient.
[2016-11-20] MEDS ORDERED: NURSING VERBAL MED ORDER ONE (14:45)
--- NOTE | 2016-11-20 14:56 | Progress Note ---
Subjective Date of Service: Nov 20, 2016. Subjective Pt evaluation today including: conversation w/ patient, conversation w/ family , physical exam, chart review, lab review, review of studies, conversation w/ freight traffic consultant, review of inpatient medication list RUQ abd pain , sometimes need morphine, no other c/o Review of Systems Constitutional: No fever, No chills, No sweats, No weight loss, No weakness, No fatigue, No problem reported Eyes: No worsening of vision, No eye pain, No redness, No discharge, No diplopia ENT: No hearing loss, No unusual epistaxis, No nasal symptoms, No sore throat, No tinnitus, No dental problems, No trouble swallowing Respiratory: No cough, No sputum, No wheezing, No shortness of breath, No dyspnea on exertion, No dyspnea at rest, No hemoptysis Cardiac: No chest pain, No orthopnea, No PND, No edema, No claudication, No palpitations Abdomen: No pain, No nausea, No vomiting, No diarrhea, No constipation Musculoskeletal: No joint pain, No muscle pain, No swelling, No calf pain Male : No dysuria, No urinary frequency, No incontinence, No nocturia more than once/night, No slowing stream, No hematuria Neurologic: No memory loss, No paralysis, No weakness, No numbness/tingling, No vertigo, No balance problems Psychiatric: No depression symptoms, No anhedonism, No anxiety, No insomnia, No substance abuse Heme: No abnormal bleeding/bruising, No clotting problems, No swollen lymph nodes, No night sweats Endo: No fatigue, No excessive thirst, No excessive urination Skin: No rash, No itch, No new/changing skin lesions, No color change, No bleeding Objective Vital Signs Date Time Temp Pulse Resp B/P (MAP) Pulse Ox O2 Delivery O2 Flow Rate FiO2 11/20/16 11:22 36.6 65 17 122/77 (92) 95 Room Air 11/20/16 08:26 36.5 72 18 148/92 (110) 93 Room Air 11/20/16 08:00 Room Air 11/20/16 04:41 36.7 71 20 136/87 (103) 97 Room Air 11/20/16 00:29 36.6 67 20 132/84 (100) 97 Room Air 11/20/16 00:05 Room Air 11/19/16 20:09 36.7 77 18 137/88 (104) 95 Room Air 11/19/16 16:36 36.7 78 20 138/87 (104) 95 Room Air 11/19/16 16:00 Room Air 11/19/16 15:34 76 18 124/83 (97) 94 Room Air 11/19/16 14:58 36.8 74 20 152/92 (112) 96 Room Air Physical Exam General Appearance: WD/WN, no apparent distress Eyes: normal inspection, PERRL, EOMI, sclerae normal ENT: normal ENT inspection, hearing grossly normal, pharynx normal Neck: supple, no adenopathy, thyroid normal, no JVD, no carotid bruits, trachea midline Respiratory/Chest: chest non-tender, lungs clear, normal breath sounds, no respiratory distress, no accessory muscle use Cardiovascular: regular rate, rhythm, no edema, no gallop, no JVD, no murmur Abdomen: normal bowel sounds, non tender, soft, no organomegaly, no pulsatile mass Extremities: normal range of motion, non-tender, normal inspection, no pedal edema, no calf tenderness, normal capillary refill, pelvis stable 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, no motor/sensory deficits, alert, normal mood/affect, oriented x 3, + abnormal cerebellar tests Skin: normal color, warm/dry, no rash Lymphatic: no adenopathy Laboratory Results Last 24 Hours Test 11/19/16 16:37 11/19/16 20:07 11/20/16 06:19 11/20/16 07:49 Bedside Glucose 231 mg/dl 140 mg/dl 192 mg/dl White Blood Count 7.61 K/uL Red Blood Count 4.79 M/uL Hemoglobin 14.5 g/dL Hematocrit 42.5 % Mean Corpuscular Volume 88.7 fL Mean Corpuscular Hemoglobin 30.3 pg Mean Corpuscular Hemoglobin Concent 34.1 g/dl Platelet Count 218 K/uL Mean Platelet Volume 9.8 fL Neutrophils (%) (Auto) 60.6 % Lymphocytes (%) (Auto) 27.3 % Monocytes (%) (Auto) 6.8 % Eosinophils (%) (Auto) 4.9 % Basophils (%) (Auto) 0.3 % Neutrophils # (Auto) 4.61 K/uL Lymphocytes # (Auto) 2.08 K/uL Monocytes # (Auto) 0.52 K/uL Eosinophils # (Auto) 0.37 K/uL Basophils # (Auto) 0.02 K/uL RDW Standard Deviation 42.7 fL RDW Coefficient of Variation 13.1 % Immature Granulocyte % (Auto) 0.1 % Immature Granulocyte # (Auto) 0.01 K/uL Prothrombin Time 11.5 SECONDS Prothromb Time International Ratio 1.1 Activated Partial Thromboplast Time 25.3 SECONDS Partial Thromboplastin Ratio 1.0 Sodium Level 137 mmol/L Potassium Level 4.3 mmol/L Chloride Level 105 mmol/L Carbon Dioxide Level 26 mmol/L Anion Gap 6.0 mmol/L Blood Urea Nitrogen 19 mg/dl Creatinine 0.94 mg/dl Est Creatinine Clear Calc Drug Dose 71.3 ml/min Estimated GFR () 96.8 Estimated GFR (Non- 83.6 BUN/Creatinine Ratio 20.2 Random Glucose 188 mg/dl Calcium Level 9.1 mg/dl Magnesium Level 2.2 mg/dl Total Bilirubin 0.5 mg/dl Direct Bilirubin 0.1 mg/dl Aspartate Amino Transf (AST/SGOT) 15 U/L Alanine Aminotransferase (ALT/SGPT) 44 U/L Alkaline Phosphatase 92 U/L Total Protein 6.9 gm/dl Albumin 3.3 gm/dl Test 11/20/16 11:28 Bedside Glucose 294 mg/dl Assessment and Plan 66-year-old white male admitted because of presumptive pancreatic cancer with metastases to liver GI and oncology on the case, recent CT scan changes consistent with possible pancreatic neoplasm with liver metastasis. Ultrasound-guided biopsy of the liver was done, possible not enough tissue surgeon consult for possible surgical laparoscopic assessment, which would help not only of the pancreas but also of the liver with biopsies of both the liver and pancreas to assess and understand the changes in CT. pt has no pcp,surgeon consulted Diabetes mellitus: cont hold Glipizide, Januvia and metformin Continue sliding scale Hypertension--continue carvedilol 25 mg by mouth twice a day, and amlodipine 5 mg by mouth daily. Hyperlipidemia--continue simvastatin 40 mg by mouth daily GI and DVT prophylaxis is covered Discussed with patient about care plan, answer all questions Continued [facility] stay due to: home environment unsafe for pt Discharge planning: uncertain
[2016-11-20] MEDS ORDERED: OXYCODONE HCL IR 5 MG TAB (IMMEDIATE RELEASE) PO PRN (15:15)
[2016-11-20] MEDS: SIMVASTATIN 40 MG TAB PO SCH (20:42)
--- NOTE | 2016-11-20 22:51 | SURGICAL CONSULTATION ---
DATE OF CONSULTATION: 11/20/2016 I have been asked by Dr. Arce and Dr. Escobedo to see this 66-year-old male who initially had a complaint of very vague upper abdominal pain that had been going on for about a month. He underwent a CT scan of the abdomen and pelvis that I reviewed with the radiologist. It demonstrated 2 masses in the pancreas that were both suspicious for malignancy. The one mass was obstructing the splenic vein which was thrombosed. He also had lesions within the parenchyma of the liver, two of which are near the surface, although not immediately adjacent to the capsule at least by CT criteria. They are suspicious for metastatic disease. He underwent an FNA under ultrasound guidance of one of those lesions; however, the pathology revealed findings that are of hepatocytes with abnormal architecture, keeping ____ possibility of hepatocytic proliferation such as an adenoma or potentially a low-grade hepatocellular carcinoma. The patient denies abdominal pain. There is no nausea or vomiting. He has had a laparoscopic cholecystectomy in the past. There are no other abdominal procedures. He has no change in his bowel habits. PAST MEDICAL HISTORY: Type 2 diabetes, status post TX, hypertension and hypercholesterolemia. PAST SURGICAL HISTORY: Knee replacement on the left, rotator cuff repair on the right and laparoscopic cholecystectomy. MEDICATIONS AT HOME: Included Norvasc, Coreg, Glucophage, Zocor and Januvia. ALLERGIES: LISINOPRIL. SOCIAL HISTORY: He is a former smoker but did not use chewing tobacco and does not drink alcohol. PHYSICAL EXAMINATION: GENERAL: Reveals a well-developed, well-nourished male who appears in no acute distress. VITAL SIGNS: Blood pressure 104/71, heart rate 70, respiration 20, temperature 36.5, pulse oximetry is 94% on room air. HEENT: Exam reveals the sclerae to be anicteric. Mucous membranes are moist. NECK: Supple, with no JVD and no cervical or supraclavicular adenopathy. BACK: No spinal or CVA tenderness. LUNGS: Clear. HEART: Regular. ABDOMEN: Has normoactive bowel sounds, is soft, nondistended and is nontender with no masses or hepatomegaly. EXTREMITIES: Reveal no edema. LABORATORY DATA: WBC 7.61, H&H is 14.5 and 42.5, platelet count 218,000. Sodium 137, potassium 4.3, chloride 105, CO2 of 26, BUN 19, creatinine 0.94, glucose 188, total bilirubin 0.5, AST 15, ALT 44, alkaline phosphatase 92. RADIOLOGY: As per HPI. ASSESSMENT AND PLAN: This patient has what radiologically looks like carcinoma of the pancreas. There are liver lesions that are suspicious for metastatic disease but this was not confirmed by ultrasound-guided FNA. We have been asked to do a laparoscopy with an attempt to do liver biopsy under direct vision. I explained to the patient that there are at least 2 lesions that appear to be near the surface but it is not an absolute that we will be able to see them laparoscopically; if we do, we will do a biopsy. He understands that the risks would include infection and bleeding or delayed bleeding. He has signed a consent form.
[2016-11-21] VITALS (10 sets, daily range): BP systolic 116–153; BP diastolic 61–96; PULSE 65–89; TEMP 36.3–36.8; O2SAT 90–100; BMI 26.4
--- NOTE | 2016-11-21 07:00 | GASTROENTEROLOGY PROGRESS NOTE ---
DATE: 11/20/2016 The patient was seen and examined today. The patient was transferred from [facility] for abdominal pain where his lipase was elevated. However, incidental note was made of findings on CT scan of several lesions in the liver as well as 2 lesions in the pancreas body and uncinate region. The patient underwent an ultrasound-guided biopsy of one of the right lobe liver lesions but this was indeterminate. The patient is feeling better at this point. He is awake, alert. His medications were reviewed and reconciled. He is diabetic and had been on Januvia for several years, though stopped this a few months ago because of dietary changes that improved his sugar as well as the concerns of pancreatic cancer. IN-HOUSE MEDICATIONS: Include amlodipine, simvastatin, Coreg, insulin, Ambien and Zofran. REVIEW OF SYSTEMS: Otherwise noncontributory based on 13-point exam. The patient denies any prior history of pancreatitis and is unknown to have pancreatic or liver disorders or lesions. PHYSICAL EXAMINATION: GENERAL: Today, the patient is awake, alert and oriented x3. VITAL SIGNS: His blood pressure is 104/71, respirations 20, pulse 70, temperature 36.5, 94% on room air. HEENT: Sclerae anicteric. Conjunctivae moist. Oral mucosa moist. HEART: Normal S1, S2. LUNGS: Clear to auscultation. ABDOMEN: Soft, nontender, nondistended with good bowel sounds. EXTREMITIES: Without edema. RECTAL: Deferred. The patient with 2 lesions seen on outside CT scan. At the present time, I cannot access these images for review. However, it appears that plans are for an exploratory laparoscopy to assess the liver and sample if needed as well as address any pancreatic lesions or adenopathy. Alternatives to surgery include endoscopic ultrasound if these can be visualized and successfully sampled. At the present time, we will await results of exploratory laparoscopy. CA 19-9 and martin fetoprotein are pending at this time. Hepatitis C antibody is negative. All questions answered.
[2016-11-21 07:45] LABS: BASO % 0.4 %; BASO ABS # 0.03 K/uL (0-0.2); COMPLETE YES; HEMATOCRIT 42.6 % (42-52); IG% 0.1 %; LYMPH % 19.6 %; LYMPH ABS # 1.62 K/uL (1.2-3.4); MEAN CELL VOLUME 88.4 fL (80-100); MEAN CORPUSCULAR HEMOGLOBIN 30.9 pg (25-34); MEAN PLATELET VOLUME 9.7 fL (7.4-10.4); MONO % 6.3 %; NEUT % 67.6 %; PLATELET COUNT 236 K/uL (130-400); RED BLOOD COUNT 4.82 M/uL (4.7-6.1); WHITE BLOOD COUNT 8.28 K/uL (4.8-10.8)
[2016-11-21 07:55] LABS: INR 1.1 (0.9-1.1); PROTHROMBIN TIME (PATIENT) 11.5 SECONDS (9.0-12.0)
[2016-11-21 08:14] LABS: BUN/CREATININE RATIO 18.6 (10-20); CALCIUM 9.4 mg/dl (8.5-10.1); CREATININE 0.94 mg/dl (0.60-1.40); MAGNESIUM 2.2 mg/dl (1.8-2.4); POTASSIUM 4.3 mmol/L (3.5-5.1)
[2016-11-21] MEDS: INSULIN ASPART 100 UNITS/ML 3 ML PEN SC SCH ×4 (08:40→21:40)
[2016-11-21] MEDS ORDERED: FENTANYL CITRATE INJ 50 MCG/1 ML 2 ML VIAL IV PRN (10:30)
[2016-11-21] MEDS ORDERED: EpHEDrine SULFATE INJ 50 MG/ML AMP IV PRN (10:30)
[2016-11-21] MEDS ORDERED: ONDANSETRON INJ 2 MG/ML 2 ML VIAL IV PRN (10:30)
[2016-11-21] MEDS ORDERED: ATROPINE SULFATE 0.1 MG/ML 5ML SYR IV PRN (10:30)
[2016-11-21] MEDS ORDERED: BUPIVACAINE 0.5 % 5 MG/1 ML MPF 30ML VIAL ONE (10:47)
[2016-11-21] MEDS ORDERED: HEPARIN SOD (PORCINE) 1000 UNIT/ML 10 ML VIAL ONE (11:41)
[2016-11-21] MEDS ORDERED: CEFAZOLIN SOD 1 GM VIAL ONE (11:42)
--- NOTE | 2016-11-21 11:50 | History & Physical Bridge Note ---
H&P Re-Evaluation Bridge Note: I have examined the patient, reviewed the History & Physical and in the interval since the performance of the History & Physical I have noted the following changes of clinical significance: No changes noted
--- NOTE | 2016-11-21 13:20 | [facility] Post Operative Brief Note ---
Immediate Operative Summary Operative Date Nov 21, 2016. Pre-Operative Diagnosis Liver lesions Post-Operative Diagnosis Same as preop Procedure(s) Performed Diagnostic Laparoscopy, Liver Biopsy Surgeon Dr. Alicea Poultry Cutter Surgeon(s) Dr. Scott Estimated Blood Loss 10 cc Findings See dictation Specimens A: liver lesion Drains None Anesthesia General Complication(s) None Disposition Recovery Room / PACU
--- NOTE | 2016-11-21 14:09 | Anesthesiology Progress Note ---
Anesthesia Post Op Note Date & Time Nov 21, 2016 at 14:09 Vital Signs Pain Intensity: 0 Vital Signs Past 12 Hours Date Time Temp Pulse Resp B/P (MAP) Pulse Ox O2 Delivery O2 Flow Rate FiO2 11/21/16 14:00 71 16 147/96 94 Room Air 11/21/16 13:50 71 16 145/95 98 Oxymask 10 11/21/16 13:40 68 16 150/95 98 Oxymask 10 11/21/16 13:30 36.8 66 16 160/97 98 Oxymask 10 11/21/16 08:09 36.6 76 16 148/92 (110) 95 Room Air 11/21/16 08:00 Room Air 11/21/16 04:58 36.6 76 16 148/92 95 Room Air 11/21/16 04:40 36.6 70 20 116/61 (79) 100 Nasal Cannula 2.0 Notes Mental Status: alert / awake / arousable, participated in evaluation Pt Amnestic to Procedure: Yes Nausea / Vomiting: adequately controlled Pain: adequately controlled Airway Patency, RR, SpO2: stable & adequate BP & HR: stable & adequate Hydration State: stable & adequate Anesthetic Complications: no major complications apparent
--- NOTE | 2016-11-21 14:28 | Hematology/Oncology Prog Note ---
Hematology/Onc Progress Note Date of Service Nov 21, 2016. Diagnoses Possible pancreatic carcinoma with liver metastasis Medications Medications Administered Medications (Trade) Dose Ordered Sig/[place] Route Start Time Stop Time Status Last Admin Dose Admin Insulin Aspart (novoLOG ASPART) SLIDING SCALE If C... ACHS SC 11/18/16 16:30 12/18/16 16:29 11/21/16 08:40 3 UNITS Carvedilol (Coreg Tab) 25 mg NOW STAT PO 11/18/16 14:52 11/18/16 14:53 DC 11/18/16 15:34 25 MG Amlodipine Besylate (Norvasc Tab) 5 mg DAILY PO 11/19/16 08:00 12/19/16 07:59 11/20/16 08:27 5 MG Carvedilol (Coreg Tab) 25 mg BID PO 11/18/16 20:00 12/18/16 19:59 11/20/16 19:34 25 MG Simvastatin (Zocor Tab) 40 mg QPM PO 11/18/16 21:00 12/18/16 20:59 11/20/16 20:42 40 MG Morphine Sulfate (MoRPHine SULFATE INJ) 4 mg STK-MED ONCE .ROUTE 11/19/16 08:13 11/19/16 08:14 DC 11/19/16 08:19 4 MG Bupivacaine HCl (Marcaine 0.5% MPF Inj) 30 ml STK-MED ONCE .ROUTE 11/21/16 10:47 11/21/16 10:48 DC 11/21/16 13:00 20 ML Heparin Sodium (Porcine) (Heparin Iv Bolus) 10,000 unit STK-MED ONCE .ROUTE 11/21/16 11:41 11/21/16 11:42 DC 11/21/16 12:50 5,000 UNIT Cefazolin Sodium (Ancef Inj) 1,000 mg STK-MED ONCE .ROUTE 11/21/16 11:42 11/21/16 11:43 DC 11/21/16 12:50 1,000 MG Subjective Seen briefly postop in recovery room after laparoscopic assessment of his liver. He denies any new complaints and vitals are stable. Review of Systems: An overall review of systems was not obtained today by myself. Vital Signs Vital Signs Past 12 Hours Date Time Temp Pulse Resp B/P (MAP) Pulse Ox O2 Delivery O2 Flow Rate FiO2 8/31/17 14:00 71 16 147/96 94 Room Air 11/21/16 13:50 71 16 145/95 98 Oxymask 10 11/21/16 13:40 68 16 150/95 98 Oxymask 10 11/21/16 13:30 36.8 66 16 160/97 98 Oxymask 10 11/21/16 08:09 36.6 76 16 148/92 (110) 95 Room Air 11/21/16 08:00 Room Air 11/21/16 04:58 36.6 76 16 148/92 95 Room Air 11/21/16 04:40 36.6 70 20 116/61 (79) 100 Nasal Cannula 2.0 Physical Exam Constitutional: vitals are stable. Eyes: Eyes are ALBERT EOMI without conjuctival erythema or icterus. ENT: External examination was negative for masses. Neck: Negative for masses or palpable thyromegaly Respiratory: Lung sounds were generally clear bilaterally Cardiovascular: Heart was RRR without significant murmur, gallops aoe rubs Gastrointestinal: No palpable hepatic or splenomegaly. The abdomen was soft with normal bowel sounds. Lymphatic system: there was no palpable peripheral lymphadenopathy Musculoskeletal System: The musculoskeletal system seemed concordant with age. Skin: The skin was negative for jaundice. Neurologic exam: The exam was negative for any focal findings. Deep tendon reflexes were equal and symmetrical. Psychiatric exam: Was essentially negative with normal mood and effect. Laboratory Last 24 Hours Test 11/20/16 16:41 11/20/16 20:21 11/20/16 22:05 11/21/16 07:34 Bedside Glucose 197 mg/dl 191 mg/dl Prothrombin Time 11.5 SECONDS Prothromb Time International Ratio 1.1 Activated Partial Thromboplast Time 24.8 SECONDS Partial Thromboplastin Ratio 1.0 Test 11/21/16 07:35 11/21/16 08:19 11/21/16 13:44 White Blood Count 8.28 K/uL Red Blood Count 4.82 M/uL Hemoglobin 14.9 g/dL Hematocrit 42.6 % Mean Corpuscular Volume 88.4 fL Mean Corpuscular Hemoglobin 30.9 pg Mean Corpuscular Hemoglobin Concent 35.0 g/dl Platelet Count 236 K/uL Mean Platelet Volume 9.7 fL Neutrophils (%) (Auto) 67.6 % Lymphocytes (%) (Auto) 19.6 % Monocytes (%) (Auto) 6.3 % Eosinophils (%) (Auto) 6.0 % Basophils (%) (Auto) 0.4 % Neutrophils # (Auto) 5.60 K/uL Lymphocytes # (Auto) 1.62 K/uL Monocytes # (Auto) 0.52 K/uL Eosinophils # (Auto) 0.50 K/uL Basophils # (Auto) 0.03 K/uL RDW Standard Deviation 42.1 fL RDW Coefficient of Variation 13.0 % Immature Granulocyte % (Auto) 0.1 % Immature Granulocyte # (Auto) 0.01 K/uL Sodium Level 137 mmol/L Potassium Level 4.3 mmol/L Chloride Level 104 mmol/L Carbon Dioxide Level 26 mmol/L Anion Gap 7.0 mmol/L Blood Urea Nitrogen 18 mg/dl Creatinine 0.94 mg/dl Est Creatinine Clear Calc Drug Dose 71.3 ml/min Estimated GFR () 96.8 Estimated GFR (Non- 83.6 BUN/Creatinine Ratio 18.6 Random Glucose 230 mg/dl Calcium Level 9.4 mg/dl Magnesium Level 2.2 mg/dl Total Bilirubin 0.6 mg/dl Direct Bilirubin 0.1 mg/dl Aspartate Amino Transf (AST/SGOT) 17 U/L Alanine Aminotransferase (ALT/SGPT) 43 U/L Alkaline Phosphatase 96 U/L Total Protein 7.5 gm/dl Albumin 3.6 gm/dl Bedside Glucose 222 mg/dl 214 mg/dl Assessment & Plan I reviewed the photographs from the surgery and nodules were able to be biopsied. I spoke with Dr. Alicea afterwards who confirmed that. We will wait for the pathology report. He appears to have tolerated the surgery quite well.
[2016-11-21] MEDS: MoRPHine SULFATE 4 MG/ML 1 ML CARP\\VIAL IV PRN ×2 (14:40→18:43)
[2016-11-21] MEDS: AMLODIPINE BESYLATE 5 MG TAB PO SCH (14:40)
[2016-11-21] MEDS: CARVEDILOL 25 MG TAB PO SCH ×2 (14:41→20:25)
--- NOTE | 2016-11-21 16:13 | OPERATIVE REPORT ---
DATE OF OPERATION: 11/21/2016 PREOPERATIVE DIAGNOSIS: Pancreatic mass suspicious for carcinoma with liver lesions. POSTOPERATIVE DIAGNOSIS: Same. PROCEDURE: Exploratory laparoscopy with liver biopsy. SURGEON: Dr. Antoine Alicea. TEXTILE SUPERVISOR: Darcy Scott MD FINDINGS: The retroperitoneum was not visualized. The liver had an approximate 1-cm white hard lesion at the edge at the junction of the left and right lobes. There was also a lesion that was hard and white that was 1-2 mm deep from the capsule on the upper lateral aspect of the right lobe and within the parenchyma of the right lobe on the anterior surface, there was an area of dimpling that had a hard lesion that was not able to be clearly visualized beneath it. There was no evidence of ascites. There was no evidence of peritoneal seeding. The omentum was normal. The visible bowel was normal. TECHNIQUE: The patient was given a general anesthetic and the area was prepped and draped in the usual sterile fashion. Transverse incision was made below the umbilicus, carried down through the subcutaneous tissue to the fascia, which was grasped with 2 Elsi clamps and incised between. The peritoneum was identified, incised, and the introducer was placed bluntly. The abdomen was then insufflated to a pressure of 15 mmHg with carbon dioxide. A 5-mm introducer was placed under direct vision into the right side of the abdomen and the abdomen was explored with findings as above. The second 5-mm introducer was placed lateral to the first on the right side of the abdomen under direct vision. Using sharp dissection, the majority of the visible lesion at the edge of the junction of the right and left lobes of the liver was removed from the liver, brought out and sent for pathology. That site was then cauterized until hemostasis was obtained. The subdiaphragmatic space and subhepatic spaces were irrigated and the irrigation was removed. The area of biopsy was inspected and there was no bleeding. The gas was allowed to escape and the introducers were removed. The fascia of the umbilical introducer site was closed with interrupted 0 Vicryl and skin of all the incisions was closed with 4-0 Monocryl in either an interrupted or running subcuticular fashion. The skin was anesthetized with 0.5% Marcaine. The skin was cleansed, dried, benzoin placed and Steri-Strips applied. The estimated blood loss was 10 mL. Sponge, needle and instrument counts were correct prior to closure. The patient tolerated the surgical procedure without complication and was transferred to recovery. I attest to the content of the Intraoperative Record and any orders documented therein. Any exception s are noted below.
--- NOTE | 2016-11-21 17:01 | Progress Note ---
Subjective Date of Service: Nov 21, 2016. Subjective Pt evaluation today including: conversation w/ patient, conversation w/ family , physical exam, chart review, lab review, review of studies, review of inpatient medication list had Laparoscopic liver biopsy done,, complaining of abdominal pain in the procedure area, which require IV morphine No fever and chill Review of Systems Constitutional: No fever, No chills, No sweats, No weight loss, No weakness, No fatigue, No problem reported Eyes: No worsening of vision, No eye pain, No redness, No discharge, No diplopia ENT: No hearing loss, No unusual epistaxis, No nasal symptoms, No sore throat, No tinnitus, No dental problems, No trouble swallowing Respiratory: No cough, No sputum, No wheezing, No shortness of breath, No dyspnea on exertion, No dyspnea at rest, No hemoptysis Cardiac: No chest pain, No orthopnea, No PND, No edema, No claudication, No palpitations Abdomen: + pain, No nausea, No vomiting, No diarrhea, No constipation Musculoskeletal: No joint pain, No muscle pain, No swelling, No calf pain Male : No dysuria, No urinary frequency, No incontinence, No nocturia more than once/night, No slowing stream, No hematuria Neurologic: No memory loss, No paralysis, No weakness, No numbness/tingling, No vertigo, No balance problems Psychiatric: No depression symptoms, No anhedonism, No anxiety, No insomnia, No substance abuse Heme: No abnormal bleeding/bruising, No clotting problems, No swollen lymph nodes, No night sweats Endo: No fatigue, No excessive thirst, No excessive urination Skin: No rash, No itch, No new/changing skin lesions, No color change, No bleeding Objective Vital Signs Date Time Temp Pulse Resp B/P (MAP) Pulse Ox O2 Delivery O2 Flow Rate FiO2 11/21/16 16:29 36.3 86 18 146/96 (113) 90 Room Air 11/21/16 16:03 36.3 80 18 129/88 (102) 94 Room Air 11/21/16 15:34 36.4 78 18 149/89 (109) 91 Room Air 11/21/16 15:07 36.8 87 18 146/88 (107) 96 Room Air 11/21/16 14:30 36.4 65 18 136/85 (102) 93 Room Air 11/21/16 14:00 71 16 147/96 94 Room Air 11/21/16 13:50 71 16 145/95 98 Oxymask 10 11/21/16 13:40 68 16 150/95 98 Oxymask 10 11/21/16 13:30 36.8 66 16 160/97 98 Oxymask 10 11/21/16 08:09 36.6 76 16 148/92 (110) 95 Room Air 11/21/16 08:00 Room Air 11/21/16 04:58 36.6 76 16 148/92 95 Room Air 11/21/16 04:40 36.6 70 20 116/61 (79) 100 Nasal Cannula 2.0 11/21/16 00:00 Room Air 11/20/16 23:21 36.8 69 18 132/85 (101) 96 Room Air 11/20/16 20:00 Room Air 11/20/16 19:33 36.7 74 18 139/85 (103) 92 Room Air Physical Exam General Appearance: WD/WN, no apparent distress Eyes: normal inspection, PERRL, EOMI, sclerae normal ENT: normal ENT inspection, hearing grossly normal, pharynx normal Neck: supple, no adenopathy, thyroid normal, no JVD, no carotid bruits, trachea midline Respiratory/Chest: chest non-tender, lungs clear, normal breath sounds, no respiratory distress, no accessory muscle use Cardiovascular: regular rate, rhythm, no edema, no gallop, no JVD, no murmur Abdomen: normal bowel sounds, non tender, soft, no organomegaly, no pulsatile mass Extremities: normal range of motion, non-tender, normal inspection, no pedal edema, no calf tenderness, normal capillary refill, pelvis stable Neurologic/Psychiatric: peer tutor II-XII nml as tested, no motor/sensory deficits, alert, normal mood/affect, oriented x 3 Skin: normal color, warm/dry, no rash Lymphatic: no adenopathy Laboratory Results Last 24 Hours Test 11/20/16 20:21 11/20/16 22:05 11/21/16 07:34 11/21/16 07:35 Bedside Glucose 191 mg/dl Prothrombin Time 11.5 SECONDS Prothromb Time International Ratio 1.1 Activated Partial Thromboplast Time 24.8 SECONDS Partial Thromboplastin Ratio 1.0 White Blood Count 8.28 K/uL Red Blood Count 4.82 M/uL Hemoglobin 14.9 g/dL Hematocrit 42.6 % Mean Corpuscular Volume 88.4 fL Mean Corpuscular Hemoglobin 30.9 pg Mean Corpuscular Hemoglobin Concent 35.0 g/dl Platelet Count 236 K/uL Mean Platelet Volume 9.7 fL Neutrophils (%) (Auto) 67.6 % Lymphocytes (%) (Auto) 19.6 % Monocytes (%) (Auto) 6.3 % Eosinophils (%) (Auto) 6.0 % Basophils (%) (Auto) 0.4 % Neutrophils # (Auto) 5.60 K/uL Lymphocytes # (Auto) 1.62 K/uL Monocytes # (Auto) 0.52 K/uL Eosinophils # (Auto) 0.50 K/uL Basophils # (Auto) 0.03 K/uL RDW Standard Deviation 42.1 fL RDW Coefficient of Variation 13.0 % Immature Granulocyte % (Auto) 0.1 % Immature Granulocyte # (Auto) 0.01 K/uL Sodium Level 137 mmol/L Potassium Level 4.3 mmol/L Chloride Level 104 mmol/L Carbon Dioxide Level 26 mmol/L Anion Gap 7.0 mmol/L Blood Urea Nitrogen 18 mg/dl Creatinine 0.94 mg/dl Est Creatinine Clear Calc Drug Dose 71.3 ml/min Estimated GFR () 96.8 Estimated GFR (Non- 83.6 BUN/Creatinine Ratio 18.6 Random Glucose 230 mg/dl Calcium Level 9.4 mg/dl Magnesium Level 2.2 mg/dl Total Bilirubin 0.6 mg/dl Direct Bilirubin 0.1 mg/dl Aspartate Amino Transf (AST/SGOT) 17 U/L Alanine Aminotransferase (ALT/SGPT) 43 U/L Alkaline Phosphatase 96 U/L Total Protein 7.5 gm/dl Albumin 3.6 gm/dl Test 11/21/16 08:19 11/21/16 13:44 11/21/16 14:48 11/21/16 16:28 Bedside Glucose 222 mg/dl 214 mg/dl 202 mg/dl 227 mg/dl Assessment and Plan 66-year-old white male admitted because of presumptive pancreatic cancer with metastases to liver presumptive pancreatic cancer with metastases to liver recent CT scan changes consistent with possible pancreatic neoplasm with liver metastasis. GI and oncology on the case, Ultrasound-guided biopsy of the liver was done, possible not enough tissue surgeon consult for possible surgical laparoscopic assessment, which would help not only of the pancreas but also of the liver with biopsies of both the liver and pancreas to assess and understand the changes in CT. pt has no pcp, surgeon consulted , had Diagnostic Laparoscopy, Liver Biopsy done today Follow up pathology report, pain control increase activity as tolerated Diabetes mellitus: cont hold Glipizide, Januvia and metformin Continue sliding scale Hypertension--continue carvedilol 25 mg by mouth twice a day, and amlodipine 5 mg by mouth daily. Hyperlipidemia--continue simvastatin 40 mg by mouth daily GI and DVT prophylaxis is covered Possible discharge tomorrow , Discussed with patient about care plan, answer all questions Continued [facility] stay due to: other Discharge planning: home
--- NOTE | 2016-11-21 17:56 | GASTROENTEROLOGY PROGRESS NOTE ---
DATE: 11/21/2016 SUBJECTIVE: The patient underwent an exploratory laparoscopy today with sampling of liver lesions identified at that time. Results are pending. The patient is doing well overall except for mild tenderness in the right upper abdomen. REVIEW OF SYSTEMS: Otherwise noncontributory. The patient has never had a colonoscopy in the past, has no family history of pancreatic or colorectal cancer. There is also no personal history of pancreatitis. He has been on Januvia for 5-6 years. MEDICATIONS: Reviewed and reconciled as was his allergy list. OBJECTIVE: VITAL SIGNS: This evening show a blood pressure of 149/96, heart rate 86, respirations 18, temperature 36.3, and he is 90% on room air. GENERAL: The patient is awake, alert and oriented x3. HEENT: Oral mucosa moist. Sclerae are anicteric. Conjunctivae moist. HEART: Normal S1 and S2. LUNGS: Clear to auscultation. ABDOMEN: Soft, nontender, and nondistended with good bowel sounds. Minimal tenderness in the right upper quadrant area without rebound or guarding. EXTREMITIES: Without clubbing, cyanosis or edema. RECTAL: Deferred at this time. IMPRESSION: The patient underwent an exploratory laparoscopy with sampling of the liver lesions. These hopefully will be available over the next few days. Regarding this workup, if these samples are also inconclusive, then 2 aspects may need to be pursued and can be done as an outpatient. First, the patient has never had a colonoscopy and this should be considered, particularly if these are metastatic lesions that suggest a colonic source. Secondly, if the pathology is indeterminate or benign, then a consideration for endoscopic ultrasound to assess the pancreas is prudent and this too can be arranged as an outpatient. We will await the results of path specimens from today's procedure. In the meantime, if the patient is discharged, we would be happy to make arrangements for colonoscopy and possible endoscopic ultrasound as indicated. Thank you for allowing us to participate in the patient's care. DALE
[2016-11-21] MEDS: SIMVASTATIN 40 MG TAB PO SCH (20:23)
[2016-11-22 04:16] VITALS: BP 122/72; PULSE 75; TEMP 36.4; O2SAT 95
[2016-11-22 06:17] VITALS: Ht 170.2 cm; Wt 78.0 kg
[2016-11-22 07:22] VITALS: BP 145/88; PULSE 68; TEMP 36.4; O2SAT 92
--- NOTE | 2016-11-22 08:32 | Surgery Progress Note ---
Surgery Progress Note Date of Service Nov 22, 2016. Subjective Post OP Day: 1 Patient examined at bedside this morning. Afebrile, vitals stable on room air, no acute events overnight. Sitting up comfortably this morning. Denies abdominal pain, only minor discomfort in right shoulder. Tolerating breakfast without N/V. Ambulating and voiding without difficulty. Having BMs. No complaints. Objective Vital Signs: Date Time Temp Pulse Resp B/P (MAP) Pulse Ox O2 Delivery O2 Flow Rate FiO2 11/22/16 07:22 36.4 68 18 145/88 (107) 92 Room Air 11/22/16 04:16 36.4 75 20 122/72 (89) 95 Room Air 11/22/16 00:00 Room Air 11/21/16 23:23 36.8 89 17 153/94 (113) 94 Room Air 11/21/16 18:58 36.7 79 20 130/84 (99) 93 Room Air 11/21/16 16:29 36.3 86 18 146/96 (113) 90 Room Air 11/21/16 16:03 36.3 80 18 129/88 (102) 94 Room Air 11/21/16 16:00 Room Air 11/21/16 15:34 36.4 78 18 149/89 (109) 91 Room Air 11/21/16 15:07 36.8 87 18 146/88 (107) 96 Room Air 11/21/16 14:30 36.4 65 18 136/85 (102) 93 Room Air 11/21/16 14:00 71 16 147/96 94 Room Air 11/21/16 13:50 71 16 145/95 98 Oxymask 10 11/21/16 13:40 68 16 150/95 98 Oxymask 10 11/21/16 13:30 36.8 66 16 160/97 98 Oxymask 10 General Appearance: WD/WN, no apparent distress Head: normocephalic, atraumatic Neck: supple Respiratory/Chest: lungs clear, normal breath sounds Cardiovascular: regular rate, rhythm Abdomen: normal bowel sounds, non tender, soft (no rebound / guarding), + distended (mildly) Incision(s): clean, dry, intact Laboratory Results: Results Past 24 Hours Test 11/21/16 13:44 11/21/16 14:48 11/21/16 16:28 11/21/16 19:55 Range/Units Bedside Glucose 214 202 227 321 70-99 mg/dl Test 11/21/16 21:15 11/22/16 07:45 Range/Units Bedside Glucose 273 302 70-99 mg/dl Assessment & Plan Evangelist Lin is a 66 year old man admitted with pancreatic masses radiologically concerning for carcinoma. Also found to have suspicious liver lesions - he is now POD 1 s/p laparoscopic biopsy of one of the concerning areas. There were no complications, patient tolerated the procedure well. -Regular diet as tolerated -Pain control as needed (none needed at this time) -Patient may shower starting Friday morning; keep steri strips in place, they will fall off on their own over time. -Patient may call [phone] to schedule a follow up appointment with Dr. Alicea in approximately 1 to 2 weeks. -Biopsy results pending -OK to discharge from surgical perspective Darcy Scott MD 11/22/16
--- NOTE | 2016-11-22 08:44 | Anesthesiology Progress Note ---
Anesthesia Post Op Note Date & Time Nov 22, 2016 at 08:43 Vital Signs Vital Signs Past 12 Hours Date Time Temp Pulse Resp B/P (MAP) Pulse Ox O2 Delivery O2 Flow Rate FiO2 11/22/16 07:22 36.4 68 18 145/88 (107) 92 Room Air 11/22/16 04:16 36.4 75 20 122/72 (89) 95 Room Air 11/22/16 00:00 Room Air 11/21/16 23:23 36.8 89 17 153/94 (113) 94 Room Air Notes Mental Status: alert / awake / arousable, participated in evaluation Pt Amnestic to Procedure: Yes Nausea / Vomiting: adequately controlled Pain: adequately controlled Airway Patency, RR, SpO2: stable & adequate BP & HR: stable & adequate Hydration State: stable & adequate Anesthetic Complications: no major complications apparent
[2016-11-22] MEDS: INSULIN ASPART 100 UNITS/ML 3 ML PEN SC SCH (08:53)
[2016-11-22] MEDS: CARVEDILOL 25 MG TAB PO SCH (08:53)
[2016-11-22] MEDS: AMLODIPINE BESYLATE 5 MG TAB PO SCH (08:54)
[2016-11-22] MEDS ORDERED: RXC5 PO (09:37)
--- NOTE | 2016-11-22 09:37 | Discharge Instructions ---
Discharge Instructions Date of Service Nov 22, 2016. Admission Reason for Admission: Pancreatic Cancer W/Liver Mets Discharge Discharge Diagnosis / Problem: liver matastsis disease , and pancreatic mass Discharge Goals Goal(s): Decrease discomfort, Improve function, Increase independence, Improve disease control, Improve nutritional status, Learn about illness, Diagnostic testing, Therapeutic intervention, Prevent Disease Progression, Specific goals Activity Recommendations Activity Limitations: resume your previous activity . Instructions / Follow-Up Instructions / Follow-Up you have pancreatic masses radiologically concerning for carcinoma with suspicious liver lesions you are POD 1 s/p laparoscopic biopsy of one of the concerning areas. you may shower starting Friday morning; keep steri strips in place, they will fall off on their own over time. you need to call [phone] to schedule a follow up appointment with Dr. Alicea in approximately 1 to 2 weeks. you need to follow up with Dr. Escobedo as instructed. - you need to follow up with your primary care physician in 1 week, - take medication as instructed, never overdose or any misuse, or take with alcohol, because misuse of medicine may cause organ damage or , call your primary care physician if have questions of medicaitons. - call your primary care physician OR go to local emergency room if has any fever/chill, chest pain, shortness of breathing, nausea/vomiting/abdominal pain , facial droop/slurry speech/local weakness, or if has any questions. - fall precaution - diet as instructed - you need to follow up with your subspecialist - you should understand that it is important to follow up the above instruction , and "not following the above instruction" may cause delayed or missed care of your medical conditions which may cause permanent organ damage and even . Current Hospital Diet Patient's current hospital diet: AHA Diet (Heart Healthy), Diabetes Type 2 Diet Discharge Diet Recommended Diet: Diabetes Type 2 Diet Procedures Procedures Performed: Diagnostic Laparoscopy, Liver Biopsy Pending Studies Studies pending at discharge: yes List of pending studies: Diagnostic Laparoscopy, Liver Biopsy, and path result, Dr. Escobedo will follow up Medical Emergencies . Who to Call and When: Medical Emergencies: If at any time you feel your situation is an emergency, please call 911 immediately. . Non-Emergent Contact Non-Emergency issues call your: Primary Care Provider, Oncologist . . "Provider Documentation" section prepared by Siva Arce. . VTE Core Measure Inpt VTE Proph given/why not?: SCD's
[2016-11-22 10:12] VITALS: BP 145/88; PULSE 68; TEMP 36.4; O2SAT 92
--- NOTE | 2016-11-22 10:16 | Discharge Summary ---
Discharge Summary Date of Service Nov 22, 2016. Discharge Summary Admission Date: Nov 18, 2016 at 14:04 Discharge Date: Nov 22, 2016 Discharge Disposition: Home Principal Diagnosis: pancreatic masses radiologically concerning for carcinoma with suspicious l Problems/Secondary Diagnoses: POD 1 s/p laparoscopic biopsy of one of the concerning areas Immunizations: Have You Had Influenza Vaccine: Unknown History of Tetanus Vaccine?: Unknown History of Pneumococcal: Unknown History of Hepatitis B Vaccine: Unknown Procedures: pancreatic masses radiologically concerning for carcinoma with suspicious liver lesions , s/p laparoscopic liver bx Consultations: surgeon, GI,. and onco Medication Reconciliation New Medications: Oxycodone HCl (Oxycodone HCl) 5 Mg Tab 5 MG PO Q8H PRN for Pain for 3 Days, #9 TAB Continued Medications: Amlodipine (Norvasc) 5 Mg Tab 5 MG PO DAILY, TAB Aspirin (Aspirin) 81 Mg Tab Carvedilol (Coreg) 25 Mg Tab 1 TAB PO BID for 90 Days, #180 TAB 1 Refill Glipizide (Glipizide) 10 Mg Tab Ibuprofen (Motrin) 800 Mg Tab 800 MG PO PRN for Pain, TAB Metformin Hcl (Glucophage) 1,000 Mg Tab 1000 MG PO BID, TAB Simvastatin (Zocor) 40 Mg Tab 40 MG PO QPM, TAB Discontinued Medications: Sitagliptin Phosphate (Januvia) 100 Mg Tab 100 MG PO DAILY, TAB Discharge Exam minh godoy, up and walk Review of Systems: Constitutional: No fever, No chills, No sweats, No weight loss, No weakness , No fatigue, No problem reported Eyes: No worsening of vision, No eye pain, No redness, No discharge, No diplopia, No problem reported ENT: No hearing loss, No unusual epistaxis, No nasal symptoms, No sore throat, No tinnitus, No dental problems, No trouble swallowing, No problem reported Respiratory: No cough, No sputum, No wheezing, No shortness of breath, No dyspnea on exertion, No dyspnea at rest, No hemoptysis, No problem reported Abdomen: No pain, No nausea, No vomiting, No diarrhea, No constipation, No GI bleeding, No problem reported Musculoskeletal: No joint pain, No muscle pain, No swelling, No calf pain, No problem reported Genitourinary - Male: No hematuria, No dysuria, No urinary frequency, No urinary urgency, No urinary hesitancy, No urinary retention, No urinary incontinence, No penile discharge, No lesions, No impotence, No problem reported Neurologic: No memory loss, No paralysis, No weakness, No numbness/tingling , No vertigo, No balance problems, No problem reported Psychiatric: No depression symptoms, No anhedonism, No anxiety, No insomnia , No substance abuse, No problem reported Endocrine: No fatigue, No excessive thirst, No excessive urination, No problem reported Hematologic / Lymphatic: No abnormal bleeding/bruising, No clotting problems , No swollen lymph nodes, No night sweats, No problem reported Integumentary: No rash, No itch, No new/changing skin lesions, No color change, No bleeding, No problem reported Physical Exam: General Appearance: WD/WN, no apparent distress Eyes: normal inspection, PERRL ENT: normal ENT inspection, hearing grossly normal, TMs normal Neck: supple, no adenopathy, thyroid normal Respiratory/Chest: chest non-tender, normal breath sounds, no respiratory distress, no accessory muscle use, + decreased breath sounds Cardiovascular: regular rate, rhythm, no edema, no gallop, no JVD Abdomen / GI: normal bowel sounds, non tender, soft, no organomegaly, no pulsatile mass Extremities: normal inspection, no calf tenderness, normal capillary refill , no pedal edema, normal range of motion 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 GI and oncology on the case, Ultrasound-guided biopsy of the liver was done, possible not enough tissue surgeon consult for possible surgical laparoscopic assessment, which would help not only of the pancreas but also of the liver with biopsies of both the liver and pancreas to assess and understand the changes in CT. pt has no pcp, surgeon consulted , had Diagnostic Laparoscopy, Liver Biopsy done on 11/21/2016 Follow up pathology report, per Dr. Escobedo , possible poor differentiated cancer, he will continue follow up, pain control as need Diabetes mellitus: cont hold Glipizide, Januvia and metformin, we'll restart upon discharge Has been on insulin sliding scale Hypertension--continue carvedilol 25 mg by mouth twice a day, and amlodipine 5 mg by mouth daily. Hyperlipidemia--continue simvastatin 40 mg by mouth daily GI and DVT prophylaxis is covered Possible discharge tomorrow , Discussed with patient about care plan, answer all questions Instructions / Follow-Up you have pancreatic masses radiologically concerning for carcinoma with suspicious liver lesions you are POD 1 s/p laparoscopic biopsy of one of the concerning areas. you may shower starting Friday morning; keep steri strips in place, they will fall off on their own over time. you need to call [phone] to schedule a follow up appointment with Dr. Alicea in approximately 1 to 2 weeks. you need to follow up with Dr. Escobedo as instructed. - you need to follow up with your primary care physician in 1 week, - take medication as instructed, never overdose or any misuse, or take with alcohol, because misuse of medicine may cause organ damage or , call your primary care physician if have questions of medicaitons. - call your primary care physician OR go to local emergency room if has any fever/chill, chest pain, shortness of breathing, nausea/vomiting/abdominal pain , facial droop/slurry speech/local weakness, or if has any questions. - fall precaution - diet as instructed - you need to follow up with your subspecialist - you should understand that it is important to follow up the above instruction , and "not following the above instruction" may cause delayed or missed care of your medical conditions which may cause permanent organ damage and even . Total Time Spent: Less than 30 minutes This includes examination of the patient, discharge planning, medication reconciliation, and communication with other providers. Discharge Instructions Please refer to the electronic Patient Visit Report (Discharge Instructions) for additional information. Additional Copies To Kiran Escobedo D.O.
[2016-11-22 10:58] LABS: AFP TUMOR MARKER SERUM 3.4 NG/ML (<6.1)
--- NOTE | 2016-11-22 13:02 | Hematology/Oncology Prog Note ---
Hematology/Onc Progress Note Date of Service Nov 22, 2016. Diagnoses Possible pancreatic carcinoma with liver metastasis Medications Medications Administered Medications (Trade) Dose Ordered Sig/[place] Route Start Time Stop Time Status Last Admin Dose Admin Insulin Aspart (novoLOG ASPART) SLIDING SCALE If C... ACHS SC 11/18/16 16:30 11/22/16 11:19 DC 11/22/16 08:53 11 UNITS Carvedilol (Coreg Tab) 25 mg NOW STAT PO 11/18/16 14:52 11/18/16 14:53 DC 11/18/16 15:34 25 MG Amlodipine Besylate (Norvasc Tab) 5 mg DAILY PO 11/19/16 08:00 11/22/16 11:19 DC 11/22/16 08:54 5 MG Carvedilol (Coreg Tab) 25 mg BID PO 11/18/16 20:00 11/22/16 11:19 DC 11/22/16 08:53 25 MG Simvastatin (Zocor Tab) 40 mg QPM PO 11/18/16 21:00 11/22/16 11:19 DC 11/21/16 20:23 40 MG Morphine Sulfate (MoRPHine SULFATE INJ) 4 mg STK-MED ONCE .ROUTE 11/19/16 08:13 11/19/16 08:14 DC 11/19/16 08:19 4 MG Morphine Sulfate (MoRPHine SULFATE INJ) 4 mg Q4H PRN IV 11/19/16 08:30 11/22/16 11:19 DC 11/21/16 18:43 4 MG Bupivacaine HCl (Marcaine 0.5% MPF Inj) 30 ml STK-MED ONCE .ROUTE 11/21/16 10:47 11/21/16 10:48 DC 11/21/16 13:00 20 ML Heparin Sodium (Porcine) (Heparin Iv Bolus) 10,000 unit STK-MED ONCE .ROUTE 11/21/16 11:41 11/21/16 11:42 DC 11/21/16 12:50 5,000 UNIT Cefazolin Sodium (Ancef Inj) 1,000 mg STK-MED ONCE .ROUTE 11/21/16 11:42 11/21/16 11:43 DC 11/21/16 12:50 1,000 MG Subjective The preliminary report of his biopsy shows this to be a probably poorly differentiated neoplasm. Review of Systems: Constitutional: Negative for night sweats, or fever Eyes: Negative for event change of vision ENT: Negative for epistaxis, nasal discharge, sore throat, or deafness Cardiovascular: Negative for chest pain, palpitations, dizziness, diaphoresis Respiratory: Negative for new shortness of breath,hemoptysis, or purulent cough Gastrointestinal: Negative for diarrhea, hematemesis, melena, nausea, vomiting , or dyspepsia Integumentary (skin): Negative for rash or jaundice discoloration Genitourinary: Negative for urinary frequency, hematuria, or dysuria Neurological: Negative for weakness, seizure activity, headache, or dizziness Lymphatic/Hematologic: Negative for petechiae, bleeding or new adenopathy Musculoskeletal: Negative for new joint or back pain Allergic/Immunologic: Negative for unusual rash or pruritis. Vital Signs Vital Signs Past 12 Hours Date Time Temp Pulse Resp B/P (MAP) Pulse Ox O2 Delivery O2 Flow Rate FiO2 11/22/16 10:12 36.4 68 18 92 Room Air 11/22/16 07:22 36.4 68 18 145/88 (107) 92 Room Air 11/22/16 04:16 36.4 75 20 122/72 (89) 95 Room Air Physical Exam Constitutional: vitals are stable. Eyes: Eyes are ALBERT EOMI without conjuctival erythema or icterus. ENT: External examination was negative for masses. Neck: Negative for masses or palpable thyromegaly Respiratory: Lung sounds were generally clear bilaterally Cardiovascular: Heart was RRR without significant murmur, gallops aoe rubs Gastrointestinal: No palpable hepatic or splenomegaly. The abdomen was soft with normal bowel sounds. Lymphatic system: there was no palpable peripheral lymphadenopathy Musculoskeletal System: The musculoskeletal system seemed concordant with age. Skin: The skin was negative for jaundice. Neurologic exam: The exam was negative for any focal findings. Deep tendon reflexes were equal and symmetrical. Psychiatric exam: Was essentially negative with normal mood and effect. Extremities: Negative for edema or erythema Laboratory Last 24 Hours Test 11/21/16 13:44 11/21/16 14:48 11/21/16 16:28 11/21/16 19:55 Bedside Glucose 214 mg/dl 202 mg/dl 227 mg/dl 321 mg/dl Test 11/21/16 21:15 11/22/16 07:45 Bedside Glucose 273 mg/dl 302 mg/dl Assessment & Plan I reviewed with the patient the preliminary diagnosis. I stated that once we have a firm pathologic diagnosis then our next conversation should be about chemotherapy. He seemed to understand. He was anxious for discharge. We will arrange for a follow-up next week in our clinic.
== END 2016-11-22 11:10 | disposition home or self-care (01) | DRG 421 ==
LOC: C.4E 14:04
PROVIDERS: ADMIT Hospitalist; ATTEND Hospitalist
PROC: 0F913ZX Drainage of Right Lobe Liver, Percutaneous Approach, Diagnostic (ICD-10-PCS; 2016-11-19)
PROC: 0FB14ZX Excision of Right Lobe Liver, Percutaneous Endoscopic Approach, Diagnostic (ICD-10-PCS; principal; 2016-11-21 11:00)
DX: C25.9 Malignant neoplasm of pancreas, unspecified (principal); C78.7 Secondary malignant neoplasm of liver and intrahepatic bile duct; E11.9 Type 2 diabetes mellitus without complications; I10 Essential (primary) hypertension; E78.5 Hyperlipidemia, unspecified; Z66 Do not resuscitate; I25.2 Old myocardial infarction; Z87.891 Personal history of nicotine dependence; Z90.49 Acquired absence of other specified parts of digestive tract; Z96.652 Presence of left artificial knee joint; Z79.84 Long term (current) use of oral hypoglycemic drugs; Z79.899 Other long term (current) drug therapy

== ENCOUNTER → 2017-01-19 | Outpatient (CLI) | payer OTHER, MEDICARE ==
[~2017-01-19] MED LIST: AMLO-110 PO; ASPI-461; CARV25TA2 PO; GLIP10TA10; IBUP-1428 PO; METF-384 PO; RXC5 PO; SIMV40TA2 PO
[2017-01-19 09:17] LABS: ALT/SGPT 40 U/L (12-78); BLOOD UREA NITROGEN 9 mg/dl (7-18); BUN/CREATININE RATIO 10.8 (10-20); CALCIUM 9.4 mg/dl (8.5-10.1); CARBON DIOXIDE 26 mmol/L (21-32); CHLORIDE 108 mmol/L (98-107); GLUCOSE 183 mg/dl (70-99); POTASSIUM 4.1 mmol/L (3.5-5.1); SODIUM 141 mmol/L (136-145)
[2017-01-19 09:20] LABS: ALB/GLOB RATIO 0.9 (0.9-2); ALKALINE PHOSPHATASE 250 U/L (45-117); AST/SGOT 25 U/L (15-37); MEAN CELL VOLUME 90.7 fL (80-100); MEAN CORPUSCULAR HGB CONC 34.2 g/dl (32-36); MEAN PLATELET VOLUME 9.8 fL (7.4-10.4); PLATELET COUNT 196 K/uL (130-400); RED BLOOD COUNT 3.97 M/uL (4.7-6.1); WHITE BLOOD COUNT 15.79 K/uL (4.8-10.8)
[2017-01-19 09:44] LABS: ANISOCYTOSIS PRESENT; COMPLETE YES; DOHLE BODIES 1+; LYMPH ABS # 1.64 K/uL (1.2-3.4); LYMPHOCYTE % 10.4 %; META ABS # 0.41 K/uL (0-0); METAMYELOCYTE % 2.6 %; MYELOCYTE % 2.6 %; NEUTROPHILS % 79.2 %; POLYCHROMASIA 1+
== END | disposition home or self-care (01) ==
LOC: C.LAB 08:31
PROVIDERS: ATTEND Internal Medicine Hematology & Oncology
DX: C25.9 Malignant neoplasm of pancreas, unspecified (principal)

== ENCOUNTER → 2017-02-06 | Outpatient (CLI) | payer OTHER, MEDICARE ==
[2017-02-06 09:56] LABS: ESTIMATED AVERAGE GLUCOSE 200 mg/dl; HA1C FLAG Normal (Normal)
== END | disposition home or self-care (01) ==
LOC: C.LABSPEC 11:47
PROVIDERS: ATTEND Family Medicine
DX: E11.9 Type 2 diabetes mellitus without complications (principal)

== ENCOUNTER → 2017-02-18 | Outpatient (CLI) | payer OTHER, MEDICARE ==
[~2017-02-18] MED LIST changes: +ASPEC81 PO; -ASPI-461; +ASPI-461 PO; +COLC0.6T54 PO; -GLIP10TA10; +GLIP10TA10 PO; +INSDGIPEN SC; +METH5TAB2 PO; +OXYC-57 PO; +PLV75 PO; +SITA100T3 PO
[2017-02-18 12:18] LABS: BASO % 0.4 %; BASO ABS # 0.03 K/uL (0-0.2); COMPLETE YES; EOS % 6.5 %; HEMATOCRIT 33.8 % (42-52); IG% 0.3 %; LYMPH % 14.6 %; LYMPH ABS # 1.07 K/uL (1.2-3.4); MEAN CELL VOLUME 96.8 fL (80-100); MEAN CORPUSCULAR HEMOGLOBIN 31.2 pg (25-34); MEAN CORPUSCULAR HGB CONC 32.2 g/dl (32-36); MEAN PLATELET VOLUME 9.9 fL (7.4-10.4); MONO % 12.9 %; NEUT % 65.3 %; PLATELET COUNT 334 K/uL (130-400); RED BLOOD COUNT 3.49 M/uL (4.7-6.1); WHITE BLOOD COUNT 7.34 K/uL (4.8-10.8)
[2017-02-18 13:01] LABS: ALT/SGPT 53 U/L (12-78); AST/SGOT 22 U/L (15-37); BLOOD UREA NITROGEN 12 mg/dl (7-18); BUN/CREATININE RATIO 15.1 (10-20); CALCIUM 8.9 mg/dl (8.5-10.1); CARBON DIOXIDE 27 mmol/L (21-32); CHLORIDE 103 mmol/L (98-107); CREATININE 0.82 mg/dl (0.60-1.40); GLUCOSE 259 mg/dl (70-99); POTASSIUM 4.7 mmol/L (3.5-5.1); SODIUM 136 mmol/L (136-145)
[2017-02-18 13:02] LABS: ALB/GLOB RATIO 0.9 (0.9-2); ALKALINE PHOSPHATASE 157 U/L (45-117)
== END | disposition home or self-care (01) ==
LOC: C.LABPBG 08:20
PROVIDERS: ATTEND Internal Medicine Hematology & Oncology
DX: C25.9 Malignant neoplasm of pancreas, unspecified (principal)

== ENCOUNTER → 2017-04-01 | Outpatient (CLI) | payer OTHER, MEDICARE ==
[~2017-04-01] MED LIST changes: -ASPI-461 PO; -INSDGIPEN SC; -RXC5 PO
[2017-04-01 12:44] LABS: BASO % 0.2 %; BASO ABS # 0.02 K/uL (0-0.2); EOS % 2.7 %; EOS ABS # 0.24 K/uL (0-0.5); HEMOGLOBIN 11.4 g/dL (14.0-18.0); IG# 0.01 K/uL (0.00-0.02); LYMPH % 11.4 %; MEAN CELL VOLUME 95.5 fL (80-100); MEAN CORPUSCULAR HGB CONC 33.5 g/dl (32-36); MEAN PLATELET VOLUME 10.7 fL (7.4-10.4); MONO % 1.6 %; MONO ABS # 0.14 K/uL (0.11-0.59); NEUT ABS # 7.37 K/uL (1.4-6.5); PLATELET COUNT 180 K/uL (130-400); RED CELL DISTRIBUTION WIDTH CV 16.5 % (11.5-14.5); RED CELL DISTRIBUTION WIDTH SD 56.9 fL (36.4-46.3); WHITE BLOOD COUNT 8.78 K/uL (4.8-10.8)
[2017-04-01 16:10] LABS: ALT/SGPT 91 U/L (12-78); BLOOD UREA NITROGEN 14 mg/dl (7-18); CARBON DIOXIDE 26 mmol/L (21-32); CREATININE 0.74 mg/dl (0.60-1.40); GLUCOSE 129 mg/dl (70-99); POTASSIUM 4.8 mmol/L (3.5-5.1); SODIUM 139 mmol/L (136-145)
[2017-04-01 16:13] LABS: ALKALINE PHOSPHATASE 181 U/L (45-117); AST/SGOT 44 U/L (15-37); TOTAL PROTEIN 6.7 gm/dl (6.4-8.2)
== END | disposition home or self-care (01) ==
LOC: C.LABPBG 10:53
PROVIDERS: ATTEND Internal Medicine Hematology & Oncology
DX: C25.9 Malignant neoplasm of pancreas, unspecified (principal)

== ENCOUNTER 2017-04-07 19:08 | Emergency (ER) | payer OTHER, MEDICARE ==
[~2017-04-07] VITALS: Ht 170.2 cm; Wt 79.3 kg
[2017-04-07 19:15] VITALS: TEMP 37; Ht 170.2 cm; Wt 79.3 kg
--- NOTE | 2017-04-07 19:38 | EMERGENCY ROOM VISIT NOTE ---
History Report prepared by Mercedes: Ace Cabrera Under the Supervision of: Dr. Bello Mccurdy D.O. First contact with patient: 19:22 Chief Complaint: SWELLING TO EXTREMITY Stated Complaint: RETAINING FLUID IN LEGS/ANKLES History of Present Illness The patient is a 66 year old male who presents to the Emergency Room with complaints of swelling in his bilateral hands and lower extremities that he first noticed this evening while watching television, a few hours prior to arrival. The patient claims that he first noticed the swelling in his hands, and then stood in front of a mirror to observe the swelling in his legs. He noted that he did injure his ankle yesterday while carrying a heavy object, he couldn't sleep last night due to the pain. He denies any recent black/bloody stools, chest pain, fevers, or headache. He does admit that he has noticed some weight gain recently. The patient was diagnosed with Pancreatic cancer with metastasis to his liver. He had a chemotherapy treatment 10 days Source of History: patient Onset: earlier this evening, a few hours SHRIMPER Position: hand (bilateral), leg (bilateral) Quality: other (Swelling) Timing: worsening Associated Symptoms: No fevers, No chest pain Review of Systems See HPI for pertinent positives & negatives. A total of 10 systems reviewed and were otherwise negative. Past Medical & Surgical Medical Problems: (1) Chest pain (2) Pancreatic cancer metastasized to liver Family History Patient reports no known family medical history. Social History Smoking Status: Former Smoker Drug Use: none Marital Status: Occupation Status: retired Current/Historical Medications Scheduled Amlodipine (Norvasc), 5 MG PO QPM Aspirin (Aspirin Ec), 81 MG PO DAILY Carvedilol (Coreg), 25 MG PO BID Clopidogrel (Plavix), 75 MG PO DAILY Glipizide (Glipizide), 10 MG PO BID Metformin Hcl (Glucophage), 1,000 MG PO BID Methadone Hcl (Dolophine), 2.5 MG PO QPM Simvastatin (Zocor), 40 MG PO QPM Sitagliptin Phosphate (Januvia), 100 MG PO QPM Scheduled PRN Colchicine (Colchicine), 0.6 MG PO DAILY PRN for GOUT Ibuprofen (Motrin), 800 MG PO BID PRN for Pain Oxycodone/Acetaminophen 5MG/325MG (Percocet 5MG/325MG), 1 TAB PO BID PRN for Pain Allergies Coded Allergies: Lisinopril (Verified Adverse Reaction, Unknown, cough, 04/07/17) Physical Exam Vital Signs Date Time Temp Pulse Resp B/P (MAP) Pulse Ox O2 Delivery O2 Flow Rate FiO2 04/08/17 00:50 72 18 157/83 97 Room Air 04/07/17 22:53 71 16 164/84 95 Room Air 04/07/17 21:23 76 18 166/96 98 Room Air 04/07/17 19:15 37.0 81 20 150/88 99 Room Air Physical Exam GENERAL: Patient is awake, alert, and in no acute distress. Patient is resting comfortably and showing no signs of anxiety EYES: The conjunctivae are clear. The pupils are round and reactive. EARS, NOSE, MOUTH AND THROAT: The nose is without any evidence of any deformity. Mucous membranes are moist tongue is midline NECK: The neck is nontender and supple. RESPIRATORY: Normal respiratory effort is noted there is no evidence of wheezing rhonchi or rales CARDIOVASCULAR: Regular rate and rhythm noted there no murmurs rubs or gallops normal S1 normal S2 GASTROINTESTINAL: The abdomen is mildly distended soft. Bowel sounds are present in all quadrants. Abdomen is tender to palpation in the RUQ. MUSCULOSKELETAL/EXTREMITIES: There is no evidence of gross deformity full range of motion is noted in the hips and shoulders SKIN: Skin is cool, pale, and dry. Bilateral lower extremity edema appreciated. There is no obvious evidence of any rash. There are no petechiae, pallor or cyanosis noted. NEUROLOGIC: Patient is awake alert and oriented x3 Medical Decision & Procedures ER Provider Diagnostic Interpretation: Radiology results as stated below per my review and radiologist interpretation: CT OF THE CHEST WITH IV CONTRAST CLINICAL HISTORY: Pancreatic carcinoma. Edema. COMPARISON STUDY: 02/20/2017 TECHNIQUE: Following the IV administration of 93 mL of Optiray-320, CT of the thorax was performed from the thoracic inlet to the lung bases. Images are reviewed in the axial, sagittal, and coronal planes. IV contrast was administered without complication. A dose lowering technique was utilized adhering to the principles of ALARA. CT DOSE: 779.39 mGy.cm FINDINGS: Thyroid: There is a 24 mm thyroid nodule arising from the isthmus. Thoracic aorta: The thoracic aorta is normal in course and caliber, noting standard 3-vessel arch anatomy. No aneurysm or dissection is seen. Pulmonary vasculature: The pulmonary trunk is normal in caliber. There are no central filling defects identified to suggest pulmonary embolus. Note that this examination was not protocoled for the evaluation of pulmonary emboli. HEART: There are coronary artery calcifications. Lungs and pleural spaces: There are no pleural effusions. There is no focal pulmonary consolidation. There is a stable 3 mm left upper lobe perifissural nodule. Left lower lobe lung cysts remain stable. Mediastinum: Mediastinal lymph nodes are the upper limits of normal in size Katelyn: There is no evidence of pathologic hilar lymphadenopathy Axilla: There is no evidence of pathologic axillary lymphadenopathy Upper abdomen: There are multiple hepatic masses consistent with metastatic disease. Skeletal structures: There are no lytic or blastic osseous lesions. IMPRESSION: 1. No acute intrathoracic findings 2. Multiple hepatic masses consistent with metastatic disease. Electronically signed by: Stuart Devries M.D. 04/07/2017 10:08 PM Dictated Date/Time: 04/07/2017 10:[address] ABD/PELVIS IV AND ORAL CONT CLINICAL HISTORY: Pancreatic carcinoma. Right upper quadrant abdominal pain COMPARISON STUDY: 01/17/2017 TECHNIQUE: Following the IV administration of 93 mL of Optiray-320, CT scan of the abdomen and pelvis was performed from the lung bases to the proximal femurs. Images are reviewed in the axial, sagittal, and coronal planes. IV contrast was administered without complication. A dose lowering technique was utilized adhering to the principles of ALARA. CT DOSE: FINDINGS: Lower chest: The heart is normal in size and configuration, without pericardial effusion. The lung bases and pleural spaces are clear. Liver: There are multiple hepatic masses which have increased in size and number when compared the preceding study. The findings are consistent with progressive metastasis. The portal vein appears patent. Gallbladder: Surgically absent Spleen: Normal in size and attenuation. Pancreas: There is a 5 cm pancreatic head mass which appears slightly larger than on the preceding study. There is superior mesenteric artery encasement. Adrenal glands: Unremarkable. Kidneys: There are multiple bilateral renal cysts. The largest in the left measures 4 cm. The largest the right measures 52 mm. Bowel: There are no transition zones indicate bowel obstruction. The appendix appears normal. There is no acute diverticulitis. Peritoneum: There is no intraperitoneal free air or abdominal ascites. There is a small fat-containing left inguinal hernia Vasculature: The abdominal aorta is normal in course and caliber. Adenopathy: None. Pelvic viscera: The bladder, and pelvic viscera are unremarkable. Skeletal structures: No destructive osseous lesions are seen. There is bilateral L5 spondylolysis. There is a grade 1/4 spondylolisthesis of L5 and S1. IMPRESSION: 1. Enlarging pancreatic head mass currently measuring 5 cm 2. Interval increase in the size and number of the multiple hepatic masses, consistent with progressive metastatic disease 3. No evidence of bowel obstruction. No evidence of free air Electronically signed by: Stuart Devries M.D. 04/07/2017 10:14 PM Dictated Date/Time: 04/07/2017 10:08 PM CHEST ONE VIEW PORTABLE CLINICAL HISTORY: Pain, radiating to the abdomen. COMPARISON STUDY: 02/20/2017 FINDINGS: The cardiac and mediastinal contours are normal. There is no evidence of focal pulmonary consolidation. There is no evidence of failure. No pleural effusions are visualized.[ There is a left subclavian central venous catheter, unchanged in position. There is no free intraperitoneal air. IMPRESSION: No active disease in the chest. Electronically signed by: Stuart Devries M.D. 04/07/2017 7:51 PM Dictated Date/Time: 04/07/2017 7:50 PM Laboratory Results 04/07/17 19:40 Red Blood Count 3.55, Mean Corpuscular Volume 94.9, Mean Corpuscular Hemoglobin 31.8, Mean Corpuscular Hemoglobin Concent 33.5, Mean Platelet Volume 9.7, Neutrophils (%) (Auto) 80.3, Lymphocytes (%) (Auto) 14.1, Monocytes (%) (Auto) 0.5, Eosinophils (%) (Auto) 4.5, Basophils (%) (Auto) 0.2, Neutrophils # (Auto) 7.32, Lymphocytes # (Auto) 1.29, Monocytes # (Auto) 0.05, Eosinophils # (Auto) 0.41, Basophils # (Auto) 0.02 04/07/17 19:40 Test 04/07/17 19:40 04/07/17 20:49 White Blood Count 9.13 K/uL (4.8-10.8) Red Blood Count 3.55 M/uL (4.7-6.1) Hemoglobin 11.3 g/dL (14.0-18.0) Hematocrit 33.7 % (42-52) Mean Corpuscular Volume 94.9 fL (80-100) Mean Corpuscular Hemoglobin 31.8 pg (25-34) Mean Corpuscular Hemoglobin Concent 33.5 g/dl (32-36) Platelet Count 162 K/uL (130-400) Mean Platelet Volume 9.7 fL (7.4-10.4) Neutrophils (%) (Auto) 80.3 % Lymphocytes (%) (Auto) 14.1 % Monocytes (%) (Auto) 0.5 % Eosinophils (%) (Auto) 4.5 % Basophils (%) (Auto) 0.2 % Neutrophils # (Auto) 7.32 K/uL (1.4-6.5) Lymphocytes # (Auto) 1.29 K/uL (1.2-3.4) Monocytes # (Auto) 0.05 K/uL (0.11-0.59) Eosinophils # (Auto) 0.41 K/uL (0-0.5) Basophils # (Auto) 0.02 K/uL (0-0.2) RDW Standard Deviation 58.0 fL (36.4-46.3) RDW Coefficient of Variation 17.0 % (11.5-14.5) Immature Granulocyte % (Auto) 0.4 % Immature Granulocyte # (Auto) 0.04 K/uL (0.00-0.02) Prothrombin Time 11.8 SECONDS (9.0-12.0) Prothromb Time International Ratio 1.1 (0.9-1.1) Activated Partial Thromboplast Time 26.1 SECONDS (21.0-31.0) Partial Thromboplastin Ratio 1.0 Anion Gap 5.0 mmol/L (3-11) Est Creatinine Clear Calc Drug Dose 94.4 ml/min Estimated GFR () 112.5 Estimated GFR (Non- 97.1 BUN/Creatinine Ratio 30.2 (10-20) Calcium Level 8.6 mg/dl (8.5-10.1) Total Bilirubin 0.5 mg/dl (0.2-1) Direct Bilirubin 0.2 mg/dl (0-0.2) Aspartate Amino Transf (AST/SGOT) 78 U/L (15-37) Alanine Aminotransferase (ALT/SGPT) 153 U/L (12-78) Alkaline Phosphatase 192 U/L (45-117) Total Creatine Kinase 390 U/L (39-308) Creatine Kinase MB 1.0 ng/ml (0.5-3.6) Creatine Kinase MB Ratio 0.3 (0-3.0) Troponin I < 0.015 ng/ml (0-0.045) Total Protein 6.4 gm/dl (6.4-8.2) Albumin 2.8 gm/dl (3.4-5.0) Lipase 78 U/L (73-393) Urine Color YELLOW Urine Appearance CLEAR (CLEAR) Urine pH 6.0 (4.5-7.5) Urine Specific Jackson 1.024 (1.000-1.030) Urine Protein 1+ (NEG) Urine Glucose (UA) NEG (NEG) Urine Ketones TRACE (NEG) Urine Occult Blood 2+ (NEG) Urine Nitrite NEG (NEG) Urine Bilirubin NEG (NEG) Urine Urobilinogen NEG (NEG) Urine Leukocyte Esterase NEG (NEG) Urine WBC (Auto) 1-5 /hpf (0-5) Urine RBC (Auto) 10-30 /hpf (0-4) Urine Hyaline Casts (Auto) 1-5 /lpf (0-5) Urine Epithelial Cells (Auto) 5-10 /lpf (0-5) Urine Bacteria (Auto) NEG (NEG) Laboratory results per my review. Medications Administered Medications (Trade) Dose Ordered Sig/[place] Route Start Time Stop Time Status Last Admin Dose Admin Morphine Sulfate (MoRPHine SULFATE INJ) 4 mg Q15M PRN IV 04/07/17 22:15 04/08/17 01:14 DC 04/07/17 22:46 4 MG Ondansetron HCl (Zofran Inj) 4 mg NOW STAT IV 04/07/17 22:03 04/07/17 22:04 DC 04/07/17 22:47 4 MG ECG Indication: other (Peripheral Edema) Rate (beats per minute): 66 Rhythm: normal sinus Findings: T-wave inversion (Inferior), no ectopy Comparison ECG Date: 02/22/20 Change: no significant change ED Course 1727: The patient was evaluated in room C2. A complete history and physical examination were performed. 2202: Ordered Zofran 4 mg IV. 2214: Ordered Morphine Sulfate 4 mg IV. 2002: The patient asked for some pain medication at this time. 2245: We are attempting to page Dr. Escobedo - outbound call center representative oncologist [id number]: Dr. Escobedo has not returned the page at this time. the patient would like to be discharged home. Medical Decision Differential diagnosis: Etiologies such as infections, reactive airway disease, pneumonia, pneumothorax , COPD, CHF, cardiac ischemia, pulmonary embolism, musculoskeletal, gastrointestinal, as well as others were entertained Nursing notes reviewed. The patient is a 66-year-old male who presented to the emergency department for an evaluation of edema. The patient has a history of metastatic prostate cancer. Currently he is scheduled for a CAT scan tomorrow to evaluate the course of his chemotherapy. The patient denied having any chest pain. His physical exam did not appear to be consistent with CHF. I was concerned that he may have had either a vascular abnormality or possibly worsening liver problems so CT the chest abdomen and pelvis was obtained. I discussed the patient's laboratory and radiographic studies with him. He was treated with IV pain medication and IV antiemetics. He was reevaluated multiple times. He appears to have worsening metastatic disease from his pancreatic cancer. This likely explains the patient's lower extremity edema. I discussed this with the patient. I also tried to discuss his case with his primary oncologist. He was paged multiple times but no return call was received. I discussed this with the patient and he requested to be discharged home so he could follow-up with his primary oncologist. He was encouraged to rest and avoid any strenuous activity. He was also encouraged to return to the emergency apartment immediately if symptoms change worsen or the need arises. Impression Primary Impression: Edema Additional Impression: Metastasis from pancreatic cancer Scribe Attestation The scribe's documentation has been prepared under my direction and personally reviewed by me in its entirety. I confirm that the note above accurately reflects all work, treatment, procedures, and medical decision making performed by me. Departure Information Dispostion Home / Self-Care Referrals No Doctor, Assigned (PCP) Forms HOME CARE DOCUMENTATION FORM, IMPORTANT VISIT INFORMATION, WORK / SCHOOL INSTRUCTIONS Patient Instructions My [facility] Additional Instructions Call your primary oncologist tomorrow to schedule a follow-up appointment. Continue all medications as prescribed. Problem Qualifiers Primary Impression: Edema Edema type: generalized Qualified Codes: R60.1 - Generalized edema
[2017-04-07] MEDS ORDERED: OPTIRAY 320 IV PRN (19:45)
--- NOTE | 2017-04-07 19:52 | DIAGNOSTIC IMAGING REPORT ---
CHEST ONE VIEW PORTABLE CLINICAL HISTORY: Pain, radiating to the abdomen. COMPARISON STUDY: 02/20/2017 FINDINGS: The cardiac and mediastinal contours are normal. There is no evidence of focal pulmonary consolidation. There is no evidence of failure. No pleural effusions are visualized.[ There is a left subclavian central venous catheter, unchanged in position. There is no free intraperitoneal air. IMPRESSION: No active disease in the chest. Electronically signed by: Stuart Devries M.D. 04/07/2017 7:51 PM Dictated Date/Time: 04/07/2017 7:50 PM
[2017-04-07 19:55] LABS: BASO % 0.2 %; BASO ABS # 0.02 K/uL (0-0.2); EOS % 4.5 %; EOS ABS # 0.41 K/uL (0-0.5); HEMATOCRIT 33.7 % (42-52); HEMOGLOBIN 11.3 g/dL (14.0-18.0); IG# 0.04 K/uL (0.00-0.02); LYMPH % 14.1 %; LYMPH ABS # 1.29 K/uL (1.2-3.4); MEAN CELL VOLUME 94.9 fL (80-100); MEAN CORPUSCULAR HEMOGLOBIN 31.8 pg (25-34); MEAN CORPUSCULAR HGB CONC 33.5 g/dl (32-36); MEAN PLATELET VOLUME 9.7 fL (7.4-10.4); MONO % 0.5 %; MONO ABS # 0.05 K/uL (0.11-0.59); NEUT % 80.3 %; NEUT ABS # 7.32 K/uL (1.4-6.5); PLATELET COUNT 162 K/uL (130-400); WHITE BLOOD COUNT 9.13 K/uL (4.8-10.8)
[2017-04-07] MEDS ORDERED: ASPI81TA28 PO (20:01)
[2017-04-07] MEDS ORDERED: CLOP1TAB15 PO (20:02)
[2017-04-07 20:11] LABS: INR 1.1 (0.9-1.1); PTT PATIENT 26.1 SECONDS (21.0-31.0)
[2017-04-07 20:14] LABS: ALBUMIN 2.8 gm/dl (3.4-5.0); ALT/SGPT 153 U/L (12-78); AST/SGOT 78 U/L (15-37); BLOOD UREA NITROGEN 21 mg/dl (7-18); CALCIUM 8.6 mg/dl (8.5-10.1); CARBON DIOXIDE 26 mmol/L (21-32); CREATININE 0.71 mg/dl (0.60-1.40); GLUCOSE 140 mg/dl (70-99); LIPASE 78 U/L (73-393); POTASSIUM 4.3 mmol/L (3.5-5.1); SODIUM 136 mmol/L (136-145)
[2017-04-07 20:20] LABS: ALKALINE PHOSPHATASE 192 U/L (45-117); TOTAL PROTEIN 6.4 gm/dl (6.4-8.2)
[2017-04-07] MEDS ORDERED: ONDANSETRON INJ 2 MG/ML 2 ML VIAL IV STA (22:03)
--- NOTE | 2017-04-07 22:09 | DIAGNOSTIC IMAGING REPORT ---
CT OF THE CHEST WITH IV CONTRAST CLINICAL HISTORY: Pancreatic carcinoma. Edema. COMPARISON STUDY: 02/20/2017 TECHNIQUE: Following the IV administration of 93 mL of Optiray-320, CT of the thorax was performed from the thoracic inlet to the lung bases. Images are reviewed in the axial, sagittal, and coronal planes. IV contrast was administered without complication. A dose lowering technique was utilized adhering to the principles of ALARA. CT DOSE: 779.39 mGy.cm FINDINGS: Thyroid: There is a 24 mm thyroid nodule arising from the isthmus. Thoracic aorta: The thoracic aorta is normal in course and caliber, noting standard 3-vessel arch anatomy. No aneurysm or dissection is seen. Pulmonary vasculature: The pulmonary trunk is normal in caliber. There are no central filling defects identified to suggest pulmonary embolus. Note that this examination was not protocoled for the evaluation of pulmonary emboli. HEART: There are coronary artery calcifications. Lungs and pleural spaces: There are no pleural effusions. There is no focal pulmonary consolidation. There is a stable 3 mm left upper lobe perifissural nodule. Left lower lobe lung cysts remain stable. Mediastinum: Mediastinal lymph nodes are the upper limits of normal in size Katelyn: There is no evidence of pathologic hilar lymphadenopathy Axilla: There is no evidence of pathologic axillary lymphadenopathy Upper abdomen: There are multiple hepatic masses consistent with metastatic disease. Skeletal structures: There are no lytic or blastic osseous lesions. IMPRESSION: 1. No acute intrathoracic findings 2. Multiple hepatic masses consistent with metastatic disease. Electronically signed by: Stuart Devries M.D. 04/07/2017 10:08 PM Dictated Date/Time: 04/07/2017 10:02 PM
[2017-04-07] MEDS ORDERED: MoRPHine SULFATE 4 MG/ML 1 ML CARP\\VIAL IV PRN (22:15)
--- NOTE | 2017-04-07 22:15 | DIAGNOSTIC IMAGING REPORT ---
CT ABD/PELVIS IV AND ORAL CONT CLINICAL HISTORY: Pancreatic carcinoma. Right upper quadrant abdominal pain COMPARISON STUDY: 01/17/2017 TECHNIQUE: Following the IV administration of 93 mL of Optiray-320, CT scan of the abdomen and pelvis was performed from the lung bases to the proximal femurs. Images are reviewed in the axial, sagittal, and coronal planes. IV contrast was administered without complication. A dose lowering technique was utilized adhering to the principles of ALARA. CT DOSE: FINDINGS: Lower chest: The heart is normal in size and configuration, without pericardial effusion. The lung bases and pleural spaces are clear. Liver: There are multiple hepatic masses which have increased in size and number when compared the preceding study. The findings are consistent with progressive metastasis. The portal vein appears patent. Gallbladder: Surgically absent Spleen: Normal in size and attenuation. Pancreas: There is a 5 cm pancreatic head mass which appears slightly larger than on the preceding study. There is superior mesenteric artery encasement. Adrenal glands: Unremarkable. Kidneys: There are multiple bilateral renal cysts. The largest in the left measures 4 cm. The largest the right measures 52 mm. Bowel: There are no transition zones indicate bowel obstruction. The appendix appears normal. There is no acute diverticulitis. Peritoneum: There is no intraperitoneal free air or abdominal ascites. There is a small fat-containing left inguinal hernia Vasculature: The abdominal aorta is normal in course and caliber. Adenopathy: None. Pelvic viscera: The bladder, and pelvic viscera are unremarkable. Skeletal structures: No destructive osseous lesions are seen. There is bilateral L5 spondylolysis. There is a grade 1/4 spondylolisthesis of L5 and S1. IMPRESSION: 1. Enlarging pancreatic head mass currently measuring 5 cm 2. Interval increase in the size and number of the multiple hepatic masses, consistent with progressive metastatic disease 3. No evidence of bowel obstruction. No evidence of free air Electronically signed by: Stuart Devries M.D. 04/07/2017 10:14 PM Dictated Date/Time: 04/07/2017 10:08 PM
[2017-04-08 00:50] VITALS: BP 157/83; PULSE 72; O2SAT 97
== END 2017-04-08 01:00 | disposition home or self-care (01) ==
LOC: C.EDB 19:09 → C.EDC 04-08 01:00
DX: R60.1 Generalized edema (principal); C25.9 Malignant neoplasm of pancreas, unspecified; C78.7 Secondary malignant neoplasm of liver and intrahepatic bile duct; Z87.891 Personal history of nicotine dependence; Z79.02 Long term (current) use of antithrombotics/antiplatelets; Z79.82 Long term (current) use of aspirin

== ENCOUNTER → 2017-04-14 | Outpatient (CLI) | payer OTHER, MEDICARE ==
[~2017-04-14] MED LIST changes: -ASPEC81 PO; +ASPI81TA28 PO; +CLOP1TAB15 PO; -PLV75 PO
--- NOTE | 2017-04-14 14:06 | DIAGNOSTIC IMAGING REPORT ---
BILATERAL LOWER EXTREMITY VENOUS DOPPLER CLINICAL HISTORY: Pancreatic cancer. COMPARISON STUDY: No previous studies for comparison. TECHNIQUE: Sonography of the deep venous system of the bilateral lower extremities was performed. Compression and augmentation were evaluated. FINDINGS: The bilateral common femoral, superficial femoral and popliteal veins were compressible. Augmentation was normal. Flow was shown within the deep calf vessels. IMPRESSION: No evidence of deep venous thrombus within the bilateral lower extremities. Electronically signed by: Jeb Vogt M.D. 04/14/2017 2:05 PM Dictated Date/Time: 04/14/2017 1:59 PM
== END | disposition home or self-care (01) ==
LOC: C.ULTR 12:45
PROVIDERS: ATTEND Internal Medicine Hematology & Oncology
DX: C25.9 Malignant neoplasm of pancreas, unspecified (principal)

== ENCOUNTER → 2017-04-21 | Outpatient (CLI) | payer OTHER, MEDICARE | END | disposition home or self-care (01) | LOC: C.LABPBG 09:02 | PROVIDERS: ATTEND Internal Medicine Hematology & Oncology | DX: C25.9 Malignant neoplasm of pancreas, unspecified (principal) ==

== ENCOUNTER → 2017-05-05 | Outpatient (CLI) | payer OTHER, MEDICARE ==
[2017-05-06 05:50] LABS: HEMOGLOBIN A1C 8.1 % (4.5-5.6)
== END | disposition home or self-care (01) ==
LOC: C.LABPBG 12:00
PROVIDERS: ATTEND Internal Medicine Hematology & Oncology
DX: C25.9 Malignant neoplasm of pancreas, unspecified (principal); E11.9 Type 2 diabetes mellitus without complications

== ENCOUNTER 2017-06-20 06:44 | Inpatient (IN) | payer OTHER, MEDICARE ==
[~2017-06-20] VITALS: Ht 170.2 cm; Wt 74.0 kg
[2017-06-20 07:21] LABS: BASO % 0.2 %; BASO ABS # 0.02 K/uL (0-0.2); EOS % 2.4 %; EOS ABS # 0.29 K/uL (0-0.5); HEMATOCRIT 33.4 % (42-52); HEMOGLOBIN 11.1 g/dL (14.0-18.0); IG# 0.03 K/uL (0.00-0.02); LYMPH % 7.2 %; LYMPH ABS # 0.88 K/uL (1.2-3.4); MEAN CELL VOLUME 91.8 fL (80-100); MEAN CORPUSCULAR HEMOGLOBIN 30.5 pg (25-34); MEAN CORPUSCULAR HGB CONC 33.2 g/dl (32-36); MEAN PLATELET VOLUME 10.5 fL (7.4-10.4); MONO % 7.4 %; NEUT % 82.6 %; NEUT ABS # 10.05 K/uL (1.4-6.5); PLATELET COUNT 167 K/uL (130-400); RED CELL DISTRIBUTION WIDTH CV 16.4 % (11.5-14.5); RED CELL DISTRIBUTION WIDTH SD 55.5 fL (36.4-46.3); WHITE BLOOD COUNT 12.17 K/uL (4.8-10.8)
--- NOTE | 2017-06-20 07:21 | EMERGENCY ROOM VISIT NOTE ---
History Report prepared by Mercedes: Yvonne Ross Under the Supervision of: Dr. Otis Moreno M.D. First contact with patient: 06:53 Chief Complaint: NEURO SYMPTOMS Stated Complaint: NEURO SYMPTOMS History of Present Illness The patient is a 67 year old male who presents to the Emergency Room with complaints of possible stroke like symptoms beginning at 3 am. Per nursing, the patient was last known well at midnight. The patient's woke him up at 3 am to give him his pills when she noticed he started fumbling with his pills. She then noticed his mouth was "side ways". She states the patient got up and walked to sit in a chair. When he sat down, he became unable to talk and was unable to get back up to walk. She reports the patient's voice is different. She notes his facial droop is less severe since it was at 3 am. Per , the patient was at baseline yesterday. The patient denies any fever, chills, nausea , vomiting, vision changes, or headache. He denies any recent falls or trauma. The patient has a history of pancreatic cancer which has metastasized to the liver. He is not getting any treatment. The patient is currently on Hospice. The patient is on Plavix. Source of History: patient Onset: 3 am Position: other (generalized) Quality: other Timing: constant Associated Symptoms: No fevers, No chills, No nausea, No vomiting Review of Systems See HPI for pertinent positives & negatives. A total of 10 systems reviewed and were otherwise negative. Past Medical & Surgical Medical Problems: (1) Chest pain (2) Pancreatic cancer metastasized to liver Old medical records were reviewed. Nurse's notes were reviewed and I agree with. Family History Patient reports no known family medical history. Social History Smoking Status: Former Smoker Drug Use: none Marital Status: Occupation Status: retired Current/Historical Medications Scheduled Amlodipine (Norvasc), 5 MG PO QPM Aspirin (Aspirin Ec), 81 MG PO DAILY Carvedilol (Coreg), 25 MG PO BID Clopidogrel (Plavix), 75 MG PO DAILY Fentanyl (Fentanyl), 1 PATCH TD [id number] Glipizide (Glipizide), 10 MG PO BID Simvastatin (Zocor), 40 MG PO QPM Scheduled PRN Colchicine (Colchicine), 0.6 MG PO DAILY PRN for GOUT Ibuprofen (Motrin), 800 MG PO BID PRN for Pain Oxycodone/Acetaminophen 5MG/325MG (Percocet 5MG/325MG), 1 TAB PO BID PRN for Pain Allergies Coded Allergies: Lisinopril (Verified Adverse Reaction, Unknown, cough, 06/20/17) Physical Exam Vital Signs Date Time Temp Pulse Resp B/P (MAP) Pulse Ox O2 Delivery O2 Flow Rate FiO2 06/20/17 08:49 100 Room Air 06/20/17 07:35 61 15 158/86 100 Room Air 06/20/17 06:53 36.6 67 20 168/87 99 Room Air Physical Exam General: Chronically-ill appearing middle aged male in no acute distress. HEENT: Normal cephalic atraumatic. Pupils are equal round and reactive to light. Extraocular movements are intact. Oropharynx is pink with moist mucous membranes. No swelling of the mouth lips or tongue. Neck: Supple with a midline trachea. No meningeal signs or stiffness, no JVD or bruits. No Stridor. Chest: Clear to auscultation bilaterally. No wheezes or rhonchi. No increased work of breathing. Heart: regular rate and rhythm. Abdomen: Soft nontender, nondistended without rebound guarding or rigidity. Extremities: No cyanosis clubbing or edema. No calf tenderness or assymetry Spine/Back. Non tender to palpation. No CVA tenderness Skin: Good turgor without rashes. Neurologic exam: Answer questions appropriately, appears mildly aphasic, mild droop on right side which said is remarkable improved. Cranial nerves two through 12 are intact. Motor and sensation are intact and symmetrical throughout. Medical Decision & Procedures ER Provider Diagnostic Interpretation: Radiology results as stated below per my review and radiologist interpretation: CT HEAD WITHOUT CONTRAST (CT) FINDINGS: No intra or extra-axial mass lesions are visualized. There is no CT evidence of acute cortical infarction. There is no evidence of midline shift. There is no acute hemorrhage. No calvarial fractures are visualized. There are minor white matter hypodensities likely on a small vessel basis. There is an equivocal subtle hypodensity in the region the left insular cortex. An acute infarct cannot be excluded. There is no evidence of pathologic ventricular dilatation. There is no evidence of acute sinusitis IMPRESSION: 1. Equivocal subtle hypodensity in the region of the left insular cortex. An acute infarct cannot be excluded. An MRI might be considered in follow-up. 2. No evidence of intracranial mass. No evidence of acute hemorrhage Electronically signed by: Stuart Devries M.D. CHEST ONE VIEW PORTABLE FINDINGS: The heart is borderline enlarged. There is a left subclavian A-Port catheter present. There is no focal pulmonary consolidation. There is no failure. There are no pleural effusions.[ IMPRESSION: No active disease in the chest. Electronically signed by: Stuart Devries M.D. Laboratory Results 06/20/17 06:55 Red Blood Count 3.64, Mean Corpuscular Volume 91.8, Mean Corpuscular Hemoglobin 30.5, Mean Corpuscular Hemoglobin Concent 33.2, Mean Platelet Volume 10.5, Neutrophils (%) (Auto) 82.6, Lymphocytes (%) (Auto) 7.2, Monocytes (%) (Auto) 7.4, Eosinophils (%) (Auto) 2.4, Basophils (%) (Auto) 0.2, Neutrophils # (Auto) 10.05, Lymphocytes # (Auto) 0.88, Monocytes # (Auto) 0.90, Eosinophils # (Auto) 0.29, Basophils # (Auto) 0.02 06/20/17 06:55 Test 06/20/17 06:55 06/20/17 07:14 06/20/17 08:41 White Blood Count 12.17 K/uL (4.8-10.8) Red Blood Count 3.64 M/uL (4.7-6.1) Hemoglobin 11.1 g/dL (14.0-18.0) Hematocrit 33.4 % (42-52) Mean Corpuscular Volume 91.8 fL (80-100) Mean Corpuscular Hemoglobin 30.5 pg (25-34) Mean Corpuscular Hemoglobin Concent 33.2 g/dl (32-36) Platelet Count 167 K/uL (130-400) Mean Platelet Volume 10.5 fL (7.4-10.4) Neutrophils (%) (Auto) 82.6 % Lymphocytes (%) (Auto) 7.2 % Monocytes (%) (Auto) 7.4 % Eosinophils (%) (Auto) 2.4 % Basophils (%) (Auto) 0.2 % Neutrophils # (Auto) 10.05 K/uL (1.4-6.5) Lymphocytes # (Auto) 0.88 K/uL (1.2-3.4) Monocytes # (Auto) 0.90 K/uL (0.11-0.59) Eosinophils # (Auto) 0.29 K/uL (0-0.5) Basophils # (Auto) 0.02 K/uL (0-0.2) RDW Standard Deviation 55.5 fL (36.4-46.3) RDW Coefficient of Variation 16.4 % (11.5-14.5) Immature Granulocyte % (Auto) 0.2 % Immature Granulocyte # (Auto) 0.03 K/uL (0.00-0.02) Prothrombin Time 18.2 SECONDS (9.0-12.0) Prothromb Time International Ratio 1.8 (0.9-1.1) Activated Partial Thromboplast Time 32.2 SECONDS (21.0-31.0) Partial Thromboplastin Ratio 1.2 Anion Gap 10.0 mmol/L (3-11) Est Creatinine Clear Calc Drug Dose 76.9 ml/min Estimated GFR () 103.3 Estimated GFR (Non- 89.1 BUN/Creatinine Ratio 16.1 (10-20) Calcium Level 8.2 mg/dl (8.5-10.1) Total Bilirubin 0.9 mg/dl (0.2-1) Direct Bilirubin 0.5 mg/dl (0-0.2) Aspartate Amino Transf (AST/SGOT) 54 U/L (15-37) Alanine Aminotransferase (ALT/SGPT) 46 U/L (12-78) Alkaline Phosphatase 368 U/L (45-117) Total Protein 6.0 gm/dl (6.4-8.2) Albumin 2.3 gm/dl (3.4-5.0) Lipase 351 U/L (73-393) Thyroid Stimulating Hormone (TSH) 0.602 uIu/ml (0.300-4.500) Bedside Troponin I 0.110 ng/ml (0-0.045) Ammonia 27.6 umol/L (11-32) Laboratory studies as stated above per my review. ECG Per My Interpretation Indication: weakness Rate (beats per minute): 59 Rhythm: sinus bradycardia (with SA) Findings: other (old inferior infarct changes, no specific intraventricular block ) ED Course 0655: Past medical records reviewed. The patient was evaluated in room A12B, and a complete history and physical examination were performed. 0746: Discussed the patient's case with Dr. Grant. The patient will be evaluated for further management. 0749: I updated the patient and his on his test results and the treatment plan. They are agreeable. Medical Decision Differential diagnoses: CVA, TIA, complication related to cancer, electrolyte or metabolic abnormality. This patient comes in as described above. He had strokelike symptoms last evening his last well-known was midnight. His says he has gotten a lot better he had a facial droop and was a phasic. The droop is gotten better but he still has some aphasia. He is on hospice for metastatic pancreatic cancer. They have chose not to proceed with any further chemo for the last month as it was making him too ill. He is on Plavix. He is not a TPA candidate given the last well known as well as his other medical problems and the fact that he is on Plavix. CAT scan of his head was obtained multiple blood testing was obtained. EKG does not suggest acute coronary syndrome or arrhythmia. His troponin was mildly elevated. His liver functions are mildly elevated however he does have liver metastases. His potassium was mildly low. CAT scan of his head shows possible acute infarct in the left insular area. I do think the patient needs to be admitted for further neurologic workup he did take an aspirin prior to arrival. Again because of the reasons mentioned above he is not a candidate for TPA or intervention. I talked to the patient and his family and he is a DO NOT RESUSCITATE but is agreeable to being admitted for stroke workup. Medication Reconcilliation Current Medication List: was personally reviewed by me Blood Pressure Screening Patient's blood pressure: Elevated blood pressure Blood pressure disposition: Referred to PCP (refer to hospitalist) Consults Time Called: 739 Consulting Physician: Dr. Grant Returned Call: 07 Discussed the patient's case with Dr. Grant. The patient will be evaluated for further management. Impression Primary Impression: CVA (cerebral vascular accident) Additional Impression: Aphasia Scribe Attestation The scribe's documentation has been prepared under my direction and personally reviewed by me in its entirety. I confirm that the note above accurately reflects all work, treatment, procedures, and medical decision making performed by me. Departure Information Dispostion Being Evaluated By Hospitalist Referrals Sara Justice DO (PCP) Patient Instructions My [facility] Problem Qualifiers
[2017-06-20 07:25] LABS: INR 1.8 (0.9-1.1); PTT PATIENT 32.2 SECONDS (21.0-31.0)
[2017-06-20 07:29] LABS: CREATININE 0.86 mg/dl (0.60-1.40)
[2017-06-20 07:30] LABS: ALBUMIN 2.3 gm/dl (3.4-5.0); CALCIUM 8.2 mg/dl (8.5-10.1); POTASSIUM 3.2 mmol/L (3.5-5.1)
--- NOTE | 2017-06-20 07:37 | DIAGNOSTIC IMAGING REPORT ---
CT HEAD WITHOUT CONTRAST (CT) CLINICAL HISTORY: Dysphasia. Possible stroke. COMPARISON STUDY: No previous studies for comparison. TECHNIQUE: Axial CT of the brain is performed from the vertex to the skull base. IV contrast was not administered for this examination. A dose lowering technique was utilized adhering to the principles of ALARA. CT DOSE: 537.48 mGy.cm FINDINGS: No intra or extra-axial mass lesions are visualized. There is no CT evidence of acute cortical infarction. There is no evidence of midline shift. There is no acute hemorrhage. No calvarial fractures are visualized. There are minor white matter hypodensities likely on a small vessel basis. There is an equivocal subtle hypodensity in the region the left insular cortex. An acute infarct cannot be excluded. There is no evidence of pathologic ventricular dilatation. There is no evidence of acute sinusitis IMPRESSION: 1. Equivocal subtle hypodensity in the region of the left insular cortex. An acute infarct cannot be excluded. An MRI might be considered in follow-up. 2. No evidence of intracranial mass. No evidence of acute hemorrhage Electronically signed by: Stuart Devries M.D. 06/20/2017 7:36 AM Dictated Date/Time: 06/20/2017 7:32 AM
[2017-06-20] MEDS ORDERED: FENT1DIS85 TD (07:42)
--- NOTE | 2017-06-20 08:31 | DIAGNOSTIC IMAGING REPORT ---
CHEST ONE VIEW PORTABLE CLINICAL HISTORY: Atypical chest pain COMPARISON STUDY: 04/07/2017 FINDINGS: The heart is borderline enlarged. There is a left subclavian A-Port catheter present. There is no focal pulmonary consolidation. There is no failure. There are no pleural effusions.[ IMPRESSION: No active disease in the chest. Electronically signed by: Stuart Devries M.D. 06/20/2017 8:29 AM Dictated Date/Time: 06/20/2017 8:28 AM
[2017-06-20 08:49] VITALS: O2SAT 100; BMI 25.6
[2017-06-20] MEDS ORDERED: MAGNESIUM HYDROXIDE SUSP 30 ML UDC PO PRN (09:00)
[2017-06-20] MEDS ORDERED: GLUCOSE 10 TABS/TUBE PO PRN (09:00)
[2017-06-20] MEDS ORDERED: ALUMINUM/MAGNESIUM/SIMETH (MAALOX MAX) 30 ML UDC PO PRN (09:00)
[2017-06-20] MEDS ORDERED: GLUCAGON FOR INJ 1 MG VIAL SQ PRN (09:00)
[2017-06-20] MEDS ORDERED: ACETAMINOPHEN 325 MG TAB PO PRN (09:00)
[2017-06-20] MEDS ORDERED: POLYETHYLENE (MIRALAX) 17 GM PACK PO PRN (09:00)
[2017-06-20] MEDS ORDERED: PHARMACIST DISCHARGE MED REC CONSULT PRN (09:00)
[2017-06-20] MEDS ORDERED: COLCHICINE 0.6 MG TAB PO PRN (09:00)
[2017-06-20] MEDS ORDERED: NON-FORMULARY MEDICATION (Fentanyl 1 PATCH) TD SCH (09:00)
[2017-06-20] MEDS ORDERED: GLUCOSE 40% GEL 15 GM TUBE PO PRN (09:00)
[2017-06-20] MEDS ORDERED: ONDANSETRON INJ 2 MG/ML 2 ML VIAL IV PRN (09:00)
[2017-06-20] MEDS ORDERED: IBUPROFEN 800 MG TAB PO PRN (09:00)
[2017-06-20] MEDS ORDERED: DEXTROSE 50% 50 ML SYR IV PRN (09:00)
--- NOTE | 2017-06-20 09:03 | History and Physical ---
History & Physical Date & Time of Service: Jun 20, 2017 at 08:59 Chief Complaint: Neuro Symptoms Primary Care Physician: Sara Justice DO History of Present Illness Source: patient, spouse Mr. Lin is a 67 y/o male with PMHx of Metastatic Pancreatic CA (off treatment), T2DM, CAD S/P NSTEMI with PCI x 2, and HTN who presents to the ED c/ o stroke like symptoms starting at 0300. HPI largely obtained by at bedside due to significant aphasia and word finding issues. Patient's last known well time was approximately midnight. Patient's states she woke him up around 0300 to administer his morning medications. She noticed he was fumbling with his pills which is unusual for him. She also reports of right- sided facial droop. She states patient was able to ambulate from the bed to the chair which was only a few feet away. However, after he sat down she states he was not able to talk and he could not get up from the chair. Patient has difficulty answering open-ended questions however can easily answer yes/no questions and follows commands. Patient denies fever/chills, headache, visual changes, chest pain, shortness of breath, nausea/vomiting, abdominal pain, dysuria, melena/hematochezia. however noticed that he looked to be sweating this AM. Patient was recently diagnosed with pancreatic cancer around November 2016. He initially underwent chemotherapy but due to significant illness it was decided to stop aggressive treatment. He then was tried on Xeloda however subsequent scans supported progression of his disease while on this medication. It was then decided to stop treatment for pancreatic cancer and pursue hospice services. Patient was recently established with hospice services approximately 1 week ago. reports that they have had difficulty controlling his pain. Currently his pain is managed with fentanyl which was recently increased to 37.5 mg, oxycodone every 2 hours, and ibuprofen 800 mg. Had a very long conversation with patient and at bedside. He is currently being actively treated for his chronic comorbidities even while under hospice services. Patient's expresses that hospice services expressed that they would not stop his chronic medications while he is on hospice. Patient's states that they have decided to continue to treat his chronic comorbidities. Also had a lengthy discussion about the mechanisms of stroke and the unpredictability of recovery or worsening. Also expressed that he would be at increased risk for further strokes given that he is already on aspirin and Plavix therapy. states they contacted hospice services who recommended him to be evaluated in the ED as the stroke is not related to his cancer process. states that she thinks he may benefit from speech and PT/OT evaluations and would like the services at home. Did express to the that this would be revoking hospice services. She states that when she talked to hospice services she is aware that there revoking hospice at this time. However , patient's also expresses that the goal is to go back onto hospice services. Would benefit from continued discussions about hospice services and expectations as it appears the understanding of the services is not fully grasp at this time however hospice services are a new intervention in this family. Patient will remain a DNR as discussed with patient and . They would appreciate a full workup for his neurological symptoms. Patient will be admitted to telemetry for cardiac monitoring and will obtain MRI. CT already confirming a subtle possible CVA. Will further evaluate for thrombotic versus embolic nature. We will also appreciate palliative consultation for continued goals of care. Past Medical/Surgical History Medical Problems: (1) Abnormal EKG (2) Chest pain (3) Edema (4) Hyperglycemia (5) Metastasis from pancreatic cancer (6) Pancreatic cancer metastasized to liver (7) Unstable angina Family History Unable to obtained due to aphasia and word finding Social History Smoking Status: Former Smoker Smokeless Tobacco Use: No Alcohol Use: none Drug Use: none Marital Status: Housing status: lives with family Occupational Status: retired Immunizations History of Influenza Vaccine: Unknown History of Tetanus Vaccine?: Unknown History of Pneumococcal: Unknown History of Hepatitis B Vaccine: Unknown Allergies Coded Allergies: Lisinopril (Verified Adverse Reaction, Unknown, cough, 06/20/17) Home Medications Scheduled Amlodipine (Norvasc), 5 MG PO QPM Aspirin (Aspirin Ec), 81 MG PO DAILY Carvedilol (Coreg), 25 MG PO BID Clopidogrel (Plavix), 75 MG PO DAILY Fentanyl (Fentanyl), 1 PATCH TD [id number] Glipizide (Glipizide), 10 MG PO BID Simvastatin (Zocor), 40 MG PO QPM Scheduled PRN Colchicine (Colchicine), 0.6 MG PO DAILY PRN for GOUT Ibuprofen (Motrin), 800 MG PO BID PRN for Pain Oxycodone/Acetaminophen 5MG/325MG (Percocet 5MG/325MG), 1 TAB PO BID PRN for Pain Review of Systems Constitutional: + sweats, No fever, No chills Eyes: No worsening of vision ENT: No nasal symptoms, No sore throat Respiratory: No cough, No shortness of breath Cardiovascular: No chest pain, No orthopnea, No palpitations Abdomen: No pain, No nausea, No vomiting, No diarrhea, No constipation Musculoskeletal: No swelling, No calf pain Genitourinary - Male: No dysuria Neurologic: + weakness, + balance problems, No numbness/tingling Integumentary: No rash, No itch Physical Exam Vital Signs Date Time Temp Pulse Resp B/P (MAP) Pulse Ox O2 Delivery O2 Flow Rate FiO2 06/20/17 08:49 100 Room Air 06/20/17 07:35 61 15 158/86 100 Room Air 06/20/17 06:53 36.6 67 20 168/87 99 Room Air General Appearance: WD/WN, no apparent distress Head: normocephalic, atraumatic Eyes: sclerae normal ENT: hearing grossly normal Neck: supple, no JVD, trachea midline Respiratory/Chest: lungs clear, normal breath sounds, no respiratory distress, no accessory muscle use Cardiovascular: regular rate, rhythm, no gallop, no murmur Abdomen/GI: normal bowel sounds, non tender, soft Back: normal inspection Extremities/Musculoskelatal: no calf tenderness, no pedal edema Neurologic/Psych: alert, + abnormal cerebellar tests, + aphasia, + facial droop (R sided), + motor weakness (R sided reduced strenght in comparison to L side; Romberg + on R side; follows commands without difficulty), + depressed affect, + pertinent finding (unable to obtain orientation due to aphasia and word finding) Skin: normal color, warm/dry Diagnostics Laboratory Results Results Past 24 Hours Test 06/20/17 06:55 06/20/17 07:14 06/20/17 08:41 Range/Units White Blood Count 12.17 4.8-10.8 K/uL Red Blood Count 3.64 4.7-6.1 M/uL Hemoglobin 11.1 14.0-18.0 g/dL Hematocrit 33.4 42-52 % Mean Corpuscular Volume 91.8 80-100 fL Mean Corpuscular Hemoglobin 30.5 25-34 pg Mean Corpuscular Hemoglobin Concent 33.2 32-36 g/dl Platelet Count 167 130-400 K/uL Mean Platelet Volume 10.5 7.4-10.4 fL Neutrophils (%) (Auto) 82.6 % Lymphocytes (%) (Auto) 7.2 % Monocytes (%) (Auto) 7.4 % Eosinophils (%) (Auto) 2.4 % Basophils (%) (Auto) 0.2 % Neutrophils # (Auto) 10.05 1.4-6.5 K/uL Lymphocytes # (Auto) 0.88 1.2-3.4 K/uL Monocytes # (Auto) 0.90 0.11-0.59 K/uL Eosinophils # (Auto) 0.29 0-0.5 K/uL Basophils # (Auto) 0.02 0-0.2 K/uL RDW Standard Deviation 55.5 36.4-46.3 fL RDW Coefficient of Variation 16.4 11.5-14.5 % Immature Granulocyte % (Auto) 0.2 % Immature Granulocyte # (Auto) 0.03 0.00-0.02 K/uL Prothrombin Time 18.2 9.0-12.0 SECONDS Prothromb Time International Ratio 1.8 0.9-1.1 Activated Partial Thromboplast Time 32.2 21.0-31.0 SECONDS Partial Thromboplastin Ratio 1.2 Sodium Level 137 136-145 mmol/L Potassium Level 3.2 3.5-5.1 mmol/L Chloride Level 103 98-107 mmol/L Carbon Dioxide Level 24 21-32 mmol/L Anion Gap 10.0 3-11 mmol/L Blood Urea Nitrogen 14 7-18 mg/dl Creatinine 0.86 0.60-1.40 mg/dl Est Creatinine Clear Calc Drug Dose 76.9 ml/min Estimated GFR () 103.3 Estimated GFR (Non- 89.1 BUN/Creatinine Ratio 16.1 10-20 Bedside Glucose 143 70-99 mg/dl Random Glucose 137 70-99 mg/dl Calcium Level 8.2 8.5-10.1 mg/dl Total Bilirubin 0.9 0.2-1 mg/dl Direct Bilirubin 0.5 0-0.2 mg/dl Aspartate Amino Transf (AST/SGOT) 54 15-37 U/L Alanine Aminotransferase (ALT/SGPT) 46 12-78 U/L Alkaline Phosphatase 368 45-117 U/L Total Protein 6.0 6.4-8.2 gm/dl Albumin 2.3 3.4-5.0 gm/dl Lipase 351 73-393 U/L Thyroid Stimulating Hormone (TSH) 0.602 0.300-4.500 uIu/ml Bedside Troponin I 0.110 0-0.045 ng/ml Diagnostic Radiology CT HEAD WITHOUT CONTRAST (CT) FINDINGS: No intra or extra-axial mass lesions are visualized. There is no CT evidence of acute cortical infarction. There is no evidence of midline shift. There is no acute hemorrhage. No calvarial fractures are visualized. There are minor white matter hypodensities likely on a small vessel basis. There is an equivocal subtle hypodensity in the region the left insular cortex. An acute infarct cannot be excluded. There is no evidence of pathologic ventricular dilatation. There is no evidence of acute sinusitis IMPRESSION: 1. Equivocal subtle hypodensity in the region of the left insular cortex. An acute infarct cannot be excluded. An MRI might be considered in follow-up. 2. No evidence of intracranial mass. No evidence of acute hemorrhage CHEST ONE VIEW PORTABLE FINDINGS: The heart is borderline enlarged. There is a left subclavian A-Port catheter present. There is no focal pulmonary consolidation. There is no failure. There are no pleural effusions.[ IMPRESSION: No active disease in the chest. EKG Sinus bradycardia with marked sinus arrhythmia Non-specific intra-ventricular conduction block Inferior infarct (cited on or before 26-SEP-2014) Abnormal ECG When compared with ECG of 07-APR-2017 19:39, No significant change was found Impression Assessment and Plan Mr. Lin is a 67 y/o male with PMHx of Metastatic Pancreatic CA (off treatment), T2DM, CAD S/P NSTEMI with PCI x 2, and HTN who presents to the ED c/ o stroke like symptoms starting at 0300. HPI largely obtained by at bedside due to significant aphasia and word finding issues. Patient's last known well time was approximately midnight. CVA with R Sided Deficits and Significant Aphasia: - Admit to telemetry for rhythm monitoring to assess for any arrythmias - CT image and report reviewed that shows a L insular cortex hypodensity; given the acute nature of the symptoms, will obtain MRI combo to further evaluate and assess for any embolic findings - Obtain echo to assess for thrombus or other cardiac issue - Allow for permissive HTN - will hold home anti-hypertensives at this time - PT/OT/Speech evalutions - failed bedside dysphagia screen and will place NPO until evaluated by speech - ASA 81 mg daily and Plavix 75 mg daily - will add rectal ASA if diet not advanced today - Atorvastatin 40 mg daily when oral meds resumed; will check lipid panel - Patient is stable at this time but given is co-morbidity of metastitic pancreatic CA his life expectancy is limited and his pro-thrombotic state given CA will put him at risk for further CVAs making morbidity/mortality more likely whether from his CA process vs thrombotic events - Consult neurology - appreciate their input given this occurred while on ASA/ Plavix T2DM: - Hold oral antidiabetics at this time and cover with SSI - can add his oral meds back pending diet institution and oral intake - reports chronic anorexia which may be a continued issue given his CA CAD S/P NSTEMI and PCI x 2: Presents with Elevated Troponins - Trend cardiac enzymes and obtain echo for further evaluation; reports no CP with these symptoms HTN: - All anti-hypertensives held at this time to allow for permissive HTN Metastatic Pancreatic CA on Hospice (Revoked at this time): - Fentanyl 37.5 mg daily (recently increased to this dose), Oxycodone PRN, and Ibuprofen PRN; Add Morphine IV when NPO - reports difficulty controlling pain and that is why the fentanyl was increased - will monitor need for pain medications and will adjust and give recommendations; Roxanol may be good option especially if dysphagia is a continuing issue DVT Prophylaxis: SCDs Code Status: DO NOT RESUSCITATE Disposition: -Patient and aware that hospice is being revoked at this time and would like to see his motor function addressed. They are not sure if they would want inpatient rehab versus just home services but would like evaluations. Their ultimate goal is to return back to hospice services but discussed multiple times and they are aware they are revoking hospice at this time -We will consult palliative care for assistance with goals of care Supervising Note Dr. Wellington I performed a history and physical examination on the patient. I reviewed above note and agree with it. I discussed plan with APC and patient. During my face to face encounter with the patient, I answered all of the patient's questions. Plan is hopefully have patient go to home rehab. Once he recovers from stroke, patient can then return to hospice. Goal is to improve quality of life, in the time he has remaining. Advanced Directives Existing Living Will: No Existing Power of Programming Internship: No Resuscitation Status VTE Prophylaxis Will order VTE Prophylaxis: Yes
[2017-06-20] MEDS ORDERED: MoRPHine SULFATE 2 MG/ML CARP IV PRN (09:15)
[2017-06-20] MEDS: INSULIN ASPART 100 UNITS/ML 3 ML PEN SC SCH ×3 (11:00→21:37)
--- NOTE | 2017-06-20 11:06 | Neurology Consultation ---
Neurology Consultation Date of Consultation: Jun 20, 2017. Attending Physician: Primary Care Physician: Sara Justice DO Reason for Consultation: Consultation for strokelike symptoms History of Present Illness Source: patient, spouse, hospital records This is a 67-year-old right-handed male who presents for the above evaluation. He was last known at his normal baseline around midnight. woke him up at around 3 AM to take his medication and was noted to have right facial droop and trouble getting his words out. He was brought to the emergency room for further evaluation. Denies that he has ever had a stroke in the past. Denies any chest pain or shortness of breath. Does appear to be weak on the right side. Is having trouble walking. Denies any trouble swallowing. No visual changes. No change in mentation. Was on aspirin and Plavix at home and reports no missed medication. Denies any cardiac arrhythmias. No tobacco use. CT of the head report and images reviewed by myself. There is a questionable hypodensity in the left insular cortex that may represent a subacute stroke. Basic lab work was reviewed. Troponin noted to be 0.1 Past Medical/Surgical History Medical Problems: (1) Abnormal EKG Status: Acute (2) Aphasia Status: Acute (3) CVA (cerebral vascular accident) Status: Acute (4) Edema Status: Acute (5) Hyperglycemia Status: Acute (6) Metastasis from pancreatic cancer Status: Acute (7) Unstable angina Status: Acute History significant for pancreatic cancer diagnosed January 2017 with metastases to the liver on hospice Diabetes type 2 CAD Hypertension Family History Reports that mother had a stroke in her 70s. Social History Lives with his . Is normally independent his activities of daily living. No tobacco use. Smokeless Tobacco Use: No Alcohol Use: none Drug Use: none Marital Status: Occupation Status: retired Allergies Coded Allergies: Lisinopril (Verified Adverse Reaction, Unknown, cough, 06/20/17) Current Inpatient Medications Current Inpatient Medications Medications (Trade) Dose Ordered Sig/[place] Route Start Time Stop Time Status Last Admin Dose Admin Acetaminophen (Tylenol Tab) 650 mg Q4H PRN PO 06/20/17 09:00 07/20/17 08:59 Al Hydrox/Mg Hydrox/Simethicone (Maalox Max Susp) 15 ml Q4H PRN PO 3/30/18 09:00 07/20/17 08:59 Magnesium Hydroxide (Milk Of Magnesia Susp) 30 ml Q12H PRN PO 06/20/17 09:00 07/20/17 08:59 Ondansetron HCl (Zofran Inj) 4 mg Q6H PRN IV 06/20/17 09:00 07/20/17 08:59 Polyethylene (Miralax Powder Packet) 17 gm DAILY PRN PO 06/20/17 09:00 07/20/17 08:59 Insulin Aspart (novoLOG ASPART) SLIDING SCALE If C... ACHS SC 06/20/17 11:00 07/20/17 10:59 UNV Glucose (Glucose 40% Gel) 15-30 GRAMS 15 GRAMS... UD PRN PO 06/20/17 09:00 07/20/17 08:59 Glucose (Glucose Chew Tab) 4-8 Tablets 4 Tabl... UD PRN PO 06/20/17 09:00 07/20/17 08:59 Dextrose (Dextrose 50% 50ML Syringe) 25-50ML OF 50% DW IV FOR... UD PRN IV 06/20/17 09:00 07/20/17 08:59 Glucagon (Glucagon Inj) 1 mg UD PRN SQ 06/20/17 09:00 07/20/17 08:59 Miscellaneous Information (Pharmacist Discharge Med Rec Consult) 1 ea UD PRN N/A 06/20/17 09:00 07/20/17 08:59 UNV Aspirin (Ecotrin Tab) 81 mg DAILY PO 06/20/17 09:00 07/20/17 08:59 UNV Clopidogrel Bisulfate (plAVix TAB) 75 mg DAILY PO 06/20/17 09:00 07/20/17 08:59 UNV Colchicine (Colchicine Tab) 0.6 mg DAILY PRN PO 06/20/17 09:00 07/20/17 08:59 UNV Ibuprofen (Motrin Tab) 800 mg BID PRN PO 06/20/17 09:00 07/20/17 08:59 UNV Oxycodone/ Acetaminophen (Percocet 5-325mg Tab) 1 tab BID PRN PO 06/20/17 09:00 07/04/17 08:59 UNV Simvastatin (Zocor Tab) 40 mg QPM PO 06/20/17 21:00 07/20/17 20:59 UNV Non-Formulary Medication (Fentanyl ) 1 patch CQ72HR TD 06/20/17 09:00 07/20/17 08:59 UNV Morphine Sulfate (MoRPHine SULFATE INJ) 2 mg Q3H PRN IV 06/20/17 09:15 07/04/17 09:14 UNV Potassium Chloride/Sodium Chloride 1,000 ml @ 80 mls/hr [id number] IV 06/20/17 09:15 07/20/17 09:14 UNV Review of Systems Review of systems is limited due to expressive aphasia, but the patient does appear to be appropriately to yes or no to things and otherwise complete review of systems negative except for the above-noted. Physical Exam Vital Signs (Past 24 Hrs): Date Time Temp Pulse Resp B/P (MAP) Pulse Ox O2 Delivery O2 Flow Rate FiO2 06/20/17 10:14 71 16 172/96 100 06/20/17 09:08 71 16 172/96 100 Room Air 06/20/17 08:49 100 Room Air 06/20/17 07:35 61 15 158/86 100 Room Air 06/20/17 06:53 36.6 67 20 168/87 99 Room Air Gen.: Patient is alert and oriented in no acute distress lying in bed Heart: Regular rate and rhythm Extremities: No gross deformities or rashes noted Neurological examination: Mental status: Patient is alert and oriented to person place and time. Attention concentration normal for the situation. Remote and recent memory difficult to assess due to expressive aphasia Speech: Moderate to severe expressive aphasia. Patient appears to have good understanding and follows most commands correctly. Cranial nerves: Funduscopic examination was difficult to visualize. Pupils equally round and reactive to light. Extraocular muscles intact without nystagmus. Mild to moderate right facial droop. Facial sensation intact. Tongue midline. Good palatal elevation. Good shoulder shrug bilaterally. Hearing grossly intact voice. Strength: 5/5 both proximal and distal in left upper and lower extremity. 4+/5 in right upper extremity with right arm pronator drift. Right lower extremity 5 /5. Sensation: Grossly intact to light touch in all extremities Deep tendon reflexes: +1 in bilateral biceps and patellar. Toes are upgoing on the right Coordination: Patient has good finger to nose without dysmetria. Station within the bed is normal. Laboratory Results Past 24 Hours: 06/20/17 06:55 Red Blood Count 3.64, Mean Corpuscular Volume 91.8, Mean Corpuscular Hemoglobin 30.5, Mean Corpuscular Hemoglobin Concent 33.2, Mean Platelet Volume 10.5, Neutrophils (%) (Auto) 82.6, Lymphocytes (%) (Auto) 7.2, Monocytes (%) (Auto) 7.4, Eosinophils (%) (Auto) 2.4, Basophils (%) (Auto) 0.2, Neutrophils # (Auto) 10.05, Lymphocytes # (Auto) 0.88, Monocytes # (Auto) 0.90, Eosinophils # (Auto) 0.29, Basophils # (Auto) 0.02 06/20/17 06:55 Test 06/20/17 06:55 06/20/17 07:14 06/20/17 08:41 White Blood Count 12.17 K/uL (4.8-10.8) Red Blood Count 3.64 M/uL (4.7-6.1) Hemoglobin 11.1 g/dL (14.0-18.0) Hematocrit 33.4 % (42-52) Mean Corpuscular Volume 91.8 fL (80-100) Mean Corpuscular Hemoglobin 30.5 pg (25-34) Mean Corpuscular Hemoglobin Concent 33.2 g/dl (32-36) Platelet Count 167 K/uL (130-400) Mean Platelet Volume 10.5 fL (7.4-10.4) Neutrophils (%) (Auto) 82.6 % Lymphocytes (%) (Auto) 7.2 % Monocytes (%) (Auto) 7.4 % Eosinophils (%) (Auto) 2.4 % Basophils (%) (Auto) 0.2 % Neutrophils # (Auto) 10.05 K/uL (1.4-6.5) Lymphocytes # (Auto) 0.88 K/uL (1.2-3.4) Monocytes # (Auto) 0.90 K/uL (0.11-0.59) Eosinophils # (Auto) 0.29 K/uL (0-0.5) Basophils # (Auto) 0.02 K/uL (0-0.2) RDW Standard Deviation 55.5 fL (36.4-46.3) RDW Coefficient of Variation 16.4 % (11.5-14.5) Immature Granulocyte % (Auto) 0.2 % Immature Granulocyte # (Auto) 0.03 K/uL (0.00-0.02) Prothrombin Time 18.2 SECONDS (9.0-12.0) Prothromb Time International Ratio 1.8 (0.9-1.1) Activated Partial Thromboplast Time 32.2 SECONDS (21.0-31.0) Partial Thromboplastin Ratio 1.2 Anion Gap 10.0 mmol/L (3-11) Est Creatinine Clear Calc Drug Dose 76.9 ml/min Estimated GFR () 103.3 Estimated GFR (Non- 89.1 BUN/Creatinine Ratio 16.1 (10-20) Bedside Glucose 143 mg/dl (70-99) Calcium Level 8.2 mg/dl (8.5-10.1) Total Bilirubin 0.9 mg/dl (0.2-1) Direct Bilirubin 0.5 mg/dl (0-0.2) Aspartate Amino Transf (AST/SGOT) 54 U/L (15-37) Alanine Aminotransferase (ALT/SGPT) 46 U/L (12-78) Alkaline Phosphatase 368 U/L (45-117) Total Protein 6.0 gm/dl (6.4-8.2) Albumin 2.3 gm/dl (3.4-5.0) Lipase 351 U/L (73-393) Thyroid Stimulating Hormone (TSH) 0.602 uIu/ml (0.300-4.500) Bedside Troponin I 0.110 ng/ml (0-0.045) Ammonia 27.6 umol/L (11-32) Imaging As noted above in HPI Impression This is a 67-year-old right-handed male who presents with acute mild right hemiplegia, right facial droop, and moderate to severe expressive aphasia. Likely left hemispheric ischemic stroke. Known stroke risk factors include diabetes type 2 and hypertension. In addition his metastatic pancreatic cancer could be causing a hypercoagulable state, and he may be at risk for repeat clots and strokes. Plan Continue aspirin and Plavix for secondary stroke prevention. Agree with MRI of the brain for further information about stroke Hemoglobin A1c and lipid profile is pending Echocardiogram is pending. I have also ordered ultrasound of the carotids to rule out critical stenosis I have also ordered additional labs including homocystine and cardiolipin antibodies for further assessment of stroke etiology. Follow-up PT/OT and speech therapies for discharge planning. Blood pressure recommendations while in hospital 175/95-150/80 (MAPS 90-110) Avoid hypotension and dehydration Stroke risk factor modifications and recommendations: Blood pressure recommendations for the first month post hospital discharge 150/ 90-130/80, and after that blood pressure recommendations 130/80-110/70 Total cholesterol goal 100- 200 and LDL goal less than 100 Hemoglobin A1c goal less than 7 Encourage cardiovascular exercise at least 3 times a week for 30 minutes. Follow-up in neurology clinic in 1 month for post stroke hospital follow-up. If there is any questions or concerns, feel free to call/page me.
[2017-06-20 11:41] VITALS: BP 172/94; PULSE 70; TEMP 36.7; O2SAT 98
--- NOTE | 2017-06-20 11:46 | DIAGNOSTIC IMAGING REPORT ---
MRI OF THE BRAIN WITHOUT AND WITH IV CONTRAST CLINICAL HISTORY: Stroke COMPARISON STUDY: Head CT June 20, 2017. TECHNIQUE: Utilizing a 1.5 Lea magnet and dedicated coil, multiplanar, multiecho imaging of the brain was performed pre and postcontrast administration. IV administration of 7 mL of Gadavist contrast was uneventful. FINDINGS: There are multiple foci of restricted diffusion consistent with acute to subacute infarction. The largest is a 2.9 cm focus within the left insular cortex which corresponds the abnormality on recent head CT. Multiple smaller additional foci are noted within both cerebral hemispheres. There is also mild restricted diffusion and signal abnormality with associated enhancement within the right occipital lobe. There is no significant mass effect. There is no evidence for hemorrhagic conversion. Ventricular system is unremarkable for age. Basilar cisterns are patent. No extra axial collections are present. Calvarial signal is maintained. Postcontrast images are mildly compromised by motion artifact. IMPRESSION: 1. Multiple foci of restricted diffusion, including a 2.9 cm focus within the left insular cortex consistent with acute to subacute infarction. No significant mass effect. No hemorrhagic conversion. The distribution suggests an embolic event. 2. Mild enhancement of a suspected infarct within the right occipital lobe raising the possibility of infarcts of varying ages. This may reflect a subacute infarct. Electronically signed by: eJb Vogt M.D. 06/20/2017 11:44 AM Dictated Date/Time: 06/20/2017 11:34 AM
[2017-06-20] MEDS: ASPIRIN 81 MG ECTAB PO SCH (12:00)
[2017-06-20] MEDS: CLOPIDOGREL BISULFATE 75 MG TAB PO SCH (12:00)
--- NOTE | 2017-06-20 13:47 | DIAGNOSTIC IMAGING REPORT ---
CAROTID DOPPLER NECK ART HISTORY: Mental status change stroke COMPARISON: None. TECHNIQUE: Real-time, grayscale, and color Doppler sonography of the carotid arteries was performed. Imaging reviewed in the transverse and longitudinal planes. All measurements were calculated based on NASCET criteria. FINDINGS: Antegrade flow is seen in the bilateral vertebral arteries. The brachial pressures are hemodynamically similar. Moderate plaque formation bilaterally The peak systolic velocity within the right ICA is 45. The right systolic ratio is 0.9. The peak systolic velocity within the left ICA is 65. The left systolic ratio is 1.2. IMPRESSION: No hemodynamically significant stenosis seen within the carotid arteries. Moderate plaque formation The above report was generated using voice recognition software. It may contain grammatical, syntax or spelling errors. Electronically signed by: Antoine Burt M.D. 06/20/2017 1:45 PM Dictated Date/Time: 06/20/2017 1:45 PM
[2017-06-20] MEDS: NSS + 20MEQ KCL 1000ML 1,000 ML IV SCH (13:56)
[2017-06-20 14:41] VITALS: Ht 170.2 cm; Wt 74.0 kg
[2017-06-20] MEDS ORDERED: NURSING VERBAL MED ORDER ONE ×2 (15:45)
[2017-06-20] MEDS: CHECK FENTANYL PATCH PLACEMENT SCH (15:54)
[2017-06-20 15:56] VITALS: BP 176/93; PULSE 64; TEMP 36.6; O2SAT 98
[2017-06-20] MEDS ORDERED: CLOPIDOGREL BISULFATE 75 MG TAB PO ONE (16:00)
[2017-06-20] MEDS ORDERED: ASPIRIN 81 MG ECTAB PO ONE (16:00)
--- NOTE | 2017-06-20 16:16 | ECHOCARDIOGRAM REPORT ---
*NOTICE TO RECEIVING CONSTITUTION PARTY AGENCY This information is strictly Confidential and protected under [place] law. [place] law prohibits you from making any further disclosure of this information unless further disclosure is expressly permitted by the written consent of the person to whom it pertains or is authorized by law. A general authorization for the release of medical or other information is not sufficient for this purpose. Hospital accepts no responsibility if the information is made available to any other person, INCLUDING THE PATIENT. Interpretation Summary * Name: MACK BAXTER Study Date: 06/20/2017 12:30 PM BP: 172/94 mmHg * Patient Location: C.2T\S\E217\S\1 HR: 67 * : 1950 (M/d/yyyy) Gender: Male Height: 67 in * Age: 67 yrs Ethnicity: CA Weight: 163 lb * Ordering Physician: Radhika Dumont * Referring Physician: Self, Referred * Performed By: Madeline Ruiz RDCS * * Reason For Study: CEREBRAL ISCHEMIA/ EMBOLUS * BSA: 1.9 m2 * -- Conclusions -- * There is mild concentric left ventricular hypertrophy. * Left ventricular systolic function is moderately reduced. * Grade I diastolic dysfunction, (abnormal relaxation pattern). * There are regional wall motion abnormalities as specified. * Injection of contrast documented no interatrial shunt. * There is mild mitral regurgitation. Procedure Details * A saline contrast injection was performed to assess for cardiac shunting. * The injection was performed through an intravenous line in the left arm. * The attending nurse who injected the saline contrast was ELIEZER GAN. * A total of 20 cc of agitated saline was given. Left Ventricle * The left ventricle is normal in size. * There is mild concentric left ventricular hypertrophy. * Left ventricular systolic function is moderately reduced. * Ejection Fraction = 30-35%. * Grade I diastolic dysfunction, (abnormal relaxation pattern). * There are regional wall motion abnormalities as specified. * There is moderate hypokinesis of the distal anterior wall with mild hypokinesis of the basal segments. There is severe hypo akinesis of the distal inferior and lateral apex with dyskinesis of the inferior apex. The septum appears akinetic Right Ventricle * The right ventricle is normal in size and function. * The right ventricular systolic function is normal as assessed by tricuspid annular plane systolic excursion (TAPSE) (normal >1.5 cm). Atria * The left atrial size is normal. * Right atrial size is normal. * The interatrial septum is intact with no evidence for an atrial septal defect. * Injection of contrast documented no interatrial shunt. Mitral Valve * The mitral valve is grossly normal. * There is mild mitral regurgitation. Tricuspid Valve * The tricuspid valve is not well visualized, but is grossly normal. * Significant tricuspid regurgitation is absent. Aortic Valve * The aortic valve is normal in structure and function. * No hemodynamically significant valvular aortic stenosis. * There is no significant aortic regurgitation. Great Vessels * The aortic root is normal size. Pericardium/Pleural * There is no pericardial effusion. Great Vessels * Normal inferior vena cava diameter and respiratory variation suggests normal central venous pressure. MMode 2D Measurements and Calculations IVSd 1.2 cm IVSs 1.9 cm LVIDd 5.2 cm LVIDs 3.9 cm LVPWd 2.0 cm LVPWs 2.2 cm IVS/LVPW 0.61 FS 25.3 % EDV(Teich) 129.0 ml ESV(Teich) 65.0 ml EF(Teich) 49.6 % EDV(cubed) 139.8 ml ESV(cubed) 58.3 ml EF(cubed) 58.3 % % IVS thick 54.5 % % LVPW thick 11.6 % LV mass(C)d 382.4 grams LV mass(C)dI 206.3 grams/m\S\2 LV mass(C)s 380.8 grams LV mass(C)sI 205.4 grams/m\S\2 SV(Teich) 63.9 ml SI(Teich) 34.5 ml/m\S\2 SV(cubed) 81.5 ml SI(cubed) 44.0 ml/m\S\2 Ao root diam 3.6 cm Ao root area 10.0 cm\S\2 LA dimension 3.8 cm LA/Ao 1.1 LVAd ap4 32.2 cm\S\2 LVLd ap4 8.7 cm EDV(MOD-sp4) 97.1 ml EDV(sp4-el) 100.9 ml LVAs ap4 23.1 cm\S\2 LVLs ap4 8.0 cm ESV(MOD-sp4) 56.5 ml ESV(sp4-el) 56.8 ml EF(MOD-sp4) 41.8 % EF(sp4-el) 43.7 % LVAd ap2 41.5 cm\S\2 LVLd ap2 9.4 cm EDV(MOD-sp2) 147.1 ml EDV(sp2-el) 155.0 ml LVAs ap2 27.7 cm\S\2 LVLs ap2 8.3 cm ESV(MOD-sp2) 77.6 ml ESV(sp2-el) 78.9 ml EF(MOD-sp2) 47.3 % EF(sp2-el) 49.1 % LVLd %diff 7.4 % EDV(MOD-bp) 126.2 ml LVLs %diff 3.2 % ESV(MOD-bp) 67.8 ml EF(MOD-bp) 46.3 % SV(MOD-sp4) 40.6 ml SI(MOD-sp4) 21.9 ml/m\S\2 SV(MOD-sp2) 69.5 ml SI(MOD-sp2) 37.5 ml/m\S\2 SV(MOD-bp) 58.4 ml SI(MOD-bp) 31.5 ml/m\S\2 SV(sp4-el) 44.1 ml SI(sp4-el) 23.8 ml/m\S\2 SV(sp2-el) 76.0 ml SI(sp2-el) 41.0 ml/m\S\2 Doppler Measurements and Calculations MV E max zach 71.3 cm/sec MV A max zach 111.6 cm/sec MV E/A 0.64 MV dec time 0.26 sec Ao V2 max 146.0 cm/sec Ao max PG 8.5 mmHg Ao max PG (full) 4.2 mmHg LV V1 max PG 4.4 mmHg LV V1 max 104.3 cm/sec
--- NOTE | 2017-06-20 17:39 | Palliative Care Consultation ---
Consultation Date of Consultation: Jun 20, 2017. Requesting Physician: Dr Wellington Attending Physician: Dr Wellington Reason for Consultation: Determine goals of care History of Present Illness Patient is a 67-year-old male notes with metastatic pancreatic cancer with metastases to the liver. Patient is well known to me from palliative outpatient clinic where we were managing his abdominal pain. Patient was at home on hospice care, his fentanyl patch was recently increased to 3 7 mcg and he was on oxycodone every 2 hours as needed as well as as needed 800 mg Motrin. Patient's reports that she had difficulty getting him up this morning and noticed a right facial droop and right-sided weakness. His contacted hospice who recommended having patient brought to the emergency room. Since onset of symptoms patient has improved speech, continues to have the right- sided facial droop and right-sided weakness 4/5. Patient is on aspirin and Plavix at home. He is no longer receiving any treatment for his pancreatic cancer. In speaking with , goals are to have him return home with home PT/ OT if possible. If not able to have physical therapy in the home they would likely return home with hospice care. Patient would likely not agree to inpatient rehab. Social History Smoking Status: Former Smoker History of Alcohol Use: No Drug Use: none Marital Status: Housing Status: lives with family Occupation Status: retired Review of Systems Constitutional: + fever Patient unable to give a full review of systems due to expressive aphasia Allergies Coded Allergies: Lisinopril (Verified Adverse Reaction, Unknown, cough, 06/20/17) Medications Current Inpatient Medications Medications (Trade) Dose Ordered Sig/[place] Route Start Time Stop Time Status Last Admin Dose Admin Acetaminophen (Tylenol Tab) 650 mg Q4H PRN PO 06/20/17 09:00 07/20/17 08:59 Al Hydrox/Mg Hydrox/Simethicone (Maalox Max Susp) 15 ml Q4H PRN PO 06/20/17 09:00 07/20/17 08:59 Magnesium Hydroxide (Milk Of Magnesia Susp) 30 ml Q12H PRN PO 06/20/17 09:00 07/20/17 08:59 Ondansetron HCl (Zofran Inj) 4 mg Q6H PRN IV 06/20/17 09:00 07/20/17 08:59 Polyethylene (Miralax Powder Packet) 17 gm DAILY PRN PO 06/20/17 09:00 07/20/17 08:59 Insulin Aspart (novoLOG ASPART) SLIDING SCALE If C... ACHS SC 06/20/17 11:00 07/20/17 10:59 06/20/17 16:43 1 UNITS Glucose (Glucose 40% Gel) 15-30 GRAMS 15 GRAMS... UD PRN PO 06/20/17 09:00 07/20/17 08:59 Glucose (Glucose Chew Tab) 4-8 Tablets 4 Tabl... UD PRN PO 06/20/17 09:00 07/20/17 08:59 Dextrose (Dextrose 50% 50ML Syringe) 25-50ML OF 50% DW IV FOR... UD PRN IV 06/20/17 09:00 07/20/17 08:59 Glucagon (Glucagon Inj) 1 mg UD PRN SQ 06/20/17 09:00 07/20/17 08:59 Miscellaneous Information (Pharmacist Discharge Med Rec Consult) 1 ea UD PRN N/A 06/20/17 09:00 07/20/17 08:59 Aspirin (Ecotrin Tab) 81 mg DAILY PO 06/20/17 12:00 07/20/17 11:59 Clopidogrel Bisulfate (plAVix TAB) 75 mg DAILY PO 06/20/17 12:00 07/20/17 11:59 Colchicine (Colchicine Tab) 0.6 mg DAILY PRN PO 06/20/17 09:00 07/20/17 08:59 Ibuprofen (Motrin Tab) 800 mg BID PRN PO 06/20/17 09:00 07/20/17 08:59 Oxycodone/ Acetaminophen (Percocet 5-325mg Tab) 1 tab BID PRN PO 06/20/17 09:00 07/04/17 08:59 Simvastatin (Zocor Tab) 40 mg QPM PO 06/20/17 21:00 07/20/17 20:59 Morphine Sulfate (MoRPHine SULFATE INJ) 2 mg Q3H PRN IV 06/20/17 09:15 07/04/17 09:14 Potassium Chloride/Sodium Chloride 1,000 ml @ 80 mls/hr [id number] IV 06/20/17 12:15 07/20/17 12:14 06/20/17 13:56 80 MLS/HR Fentanyl (Duragesic Patch) 12 mcg Q3D@0900 TD 06/22/17 09:00 07/06/17 08:59 Miscellaneous (Fentanyl Patch Remove & Waste) 1 ea Q3D N/A 06/22/17 08:59 07/22/17 08:58 Miscellaneous Information (Check Fentanyl Patch Placement) 1 ea QS N/A 06/20/17 16:00 07/20/17 15:59 06/20/17 15:54 1 EA Fentanyl (Duragesic Patch) 25 mcg Q3D@0900 TD 06/22/17 09:00 07/06/17 08:59 Miscellaneous (Fentanyl Patch Remove & Waste) 1 ea Q3D@0859 N/A 06/25/17 08:59 07/25/17 08:58 Physical Exam Date Time Temp Pulse Resp B/P (MAP) Pulse Ox O2 Delivery O2 Flow Rate FiO2 06/20/17 16:00 Room Air 06/20/17 15:56 36.6 64 18 176/93 (120) 98 Room Air 06/20/17 12:00 Room Air 06/20/17 11:41 36.7 70 16 172/94 (120) 98 Room Air 06/20/17 10:14 71 16 172/96 100 06/20/17 09:08 71 16 172/96 100 Room Air 06/20/17 08:49 100 Room Air 06/20/17 07:35 61 15 158/86 100 Room Air 06/20/17 06:53 36.6 67 20 168/87 99 Room Air General Appearance: no apparent distress, + pertinent finding (Right facial droop evident) Eyes: EOMI ENT: hearing grossly normal Neck: supple Respiratory: no respiratory distress Cardiovascular: regular rate, rhythm, no edema Abdomen: + tenderness (Right upper quadrant, due to liver metastases) Musculoskeletal: pertinent finding (Strength right upper extremity 4/5, left upper extremity 5/5) Neurologic/Psychiatric: alert Skin: warm/dry Laboratory Results Last 24 Hours Test 06/20/17 06:55 06/20/17 07:14 06/20/17 08:41 06/20/17 11:38 White Blood Count 12.17 K/uL Red Blood Count 3.64 M/uL Hemoglobin 11.1 g/dL Hematocrit 33.4 % Mean Corpuscular Volume 91.8 fL Mean Corpuscular Hemoglobin 30.5 pg Mean Corpuscular Hemoglobin Concent 33.2 g/dl Platelet Count 167 K/uL Mean Platelet Volume 10.5 fL Neutrophils (%) (Auto) 82.6 % Lymphocytes (%) (Auto) 7.2 % Monocytes (%) (Auto) 7.4 % Eosinophils (%) (Auto) 2.4 % Basophils (%) (Auto) 0.2 % Neutrophils # (Auto) 10.05 K/uL Lymphocytes # (Auto) 0.88 K/uL Monocytes # (Auto) 0.90 K/uL Eosinophils # (Auto) 0.29 K/uL Basophils # (Auto) 0.02 K/uL RDW Standard Deviation 55.5 fL RDW Coefficient of Variation 16.4 % Immature Granulocyte % (Auto) 0.2 % Immature Granulocyte # (Auto) 0.03 K/uL Prothrombin Time 18.2 SECONDS Prothromb Time International Ratio 1.8 Activated Partial Thromboplast Time 32.2 SECONDS Partial Thromboplastin Ratio 1.2 Sodium Level 137 mmol/L Potassium Level 3.2 mmol/L Chloride Level 103 mmol/L Carbon Dioxide Level 24 mmol/L Anion Gap 10.0 mmol/L Blood Urea Nitrogen 14 mg/dl Creatinine 0.86 mg/dl Est Creatinine Clear Calc Drug Dose 76.9 ml/min Estimated GFR () 103.3 Estimated GFR (Non- 89.1 BUN/Creatinine Ratio 16.1 Bedside Glucose 143 mg/dl 164 mg/dl Random Glucose 137 mg/dl Calcium Level 8.2 mg/dl Total Bilirubin 0.9 mg/dl Direct Bilirubin 0.5 mg/dl Aspartate Amino Transf (AST/SGOT) 54 U/L Alanine Aminotransferase (ALT/SGPT) 46 U/L Alkaline Phosphatase 368 U/L Total Protein 6.0 gm/dl Albumin 2.3 gm/dl Lipase 351 U/L Thyroid Stimulating Hormone (TSH) 0.602 uIu/ml Bedside Troponin I 0.110 ng/ml Ammonia 27.6 umol/L Test 06/20/17 13:05 06/20/17 15:59 Troponin I 0.133 ng/ml Bedside Glucose 185 mg/dl Assessment & Plan Palliative Performance Scale: 40 % (1) Palliative care encounter Assessment & Plan: Met with patient and , discussed goals of care as well as plan of care. If patient qualifies for home PT would want to go home and have PT at home until he is stronger in order to more easily care for him. If this is not available she would return home with hospice (2) Pancreatic cancer metastasized to liver Assessment & Plan: Pain is primarily related to his liver metastases improved control on increased fentanyl patch continue current pain management (3) Aphasia Status: Acute Assessment & Plan: Improving per his (4) CVA (cerebral vascular accident) Status: Acute Assessment & Plan: Symptoms improving, patient will continue on aspirin and Plavix. Counseling and Coordination Total time 50 minutes with greater than 50% of time spent with patient and discussing treatment options, goals of care and plan of care.
[2017-06-20 19:42] VITALS: BP 156/93; PULSE 79; TEMP 36.5; O2SAT 97
[2017-06-20] MEDS ORDERED: SIMVASTATIN 40 MG TAB PO SCH (21:00)
[2017-06-20 23:35] VITALS: BP 132/84; PULSE 84; TEMP 36.6; O2SAT 99
[2017-06-21] VITALS (7 sets, daily range): BP systolic 137–157; BP diastolic 81–89; PULSE 67–87; TEMP 36.4–36.7; O2SAT 99–100
[2017-06-21] MEDS: CHECK FENTANYL PATCH PLACEMENT SCH ×6 (00:08→16:00)
[2017-06-21] MEDS: NSS + 20MEQ KCL 1000ML 1,000 ML IV SCH (01:29)
[2017-06-21 06:40] LABS: HEMATOCRIT 21.5 % (42-52); HEMOGLOBIN 7.3 g/dL (14.0-18.0); MEAN CELL VOLUME 90.3 fL (80-100); MEAN CORPUSCULAR HEMOGLOBIN 30.7 pg (25-34); MEAN PLATELET VOLUME 10.3 fL (7.4-10.4); PLATELET COUNT 157 K/uL (130-400); RED CELL DISTRIBUTION WIDTH CV 16.4 % (11.5-14.5); RED CELL DISTRIBUTION WIDTH SD 54.6 fL (36.4-46.3); WHITE BLOOD COUNT 11.26 K/uL (4.8-10.8)
[2017-06-21 07:06] LABS: BASO % 0.1 %; BASO ABS # 0.01 K/uL (0-0.2); EOS % 0.4 %; EOS ABS # 0.04 K/uL (0-0.5); IG# 0.03 K/uL (0.00-0.02); LYMPH % 10.9 %; LYMPH ABS # 1.23 K/uL (1.2-3.4); MONO % 8.7 %; MONO ABS # 0.98 K/uL (0.11-0.59); NEUT % 79.6 %; NEUT ABS # 8.97 K/uL (1.4-6.5)
[2017-06-21 07:24] LABS: CALCIUM 7.5 mg/dl (8.5-10.1); CREATININE 0.75 mg/dl (0.60-1.40); POTASSIUM 4.1 mmol/L (3.5-5.1)
[2017-06-21 07:43] LABS: HEMOGLOBIN A1C 5.8 % (4.5-5.6)
[2017-06-21] MEDS: ASPIRIN 81 MG ECTAB PO SCH (08:00)
[2017-06-21] MEDS: CLOPIDOGREL BISULFATE 75 MG TAB PO SCH (08:00)
[2017-06-21] MEDS: FENTANYL PATCH REMOVE & WASTE SCH ×2 (08:59)
[2017-06-21] MEDS ORDERED: PANTOprazole INJ 80 MG in DEXTROSE 5% 100ML IV SCH (09:15)
[2017-06-21] MEDS: INSULIN ASPART 100 UNITS/ML 3 ML PEN SC SCH (09:37)
--- NOTE | 2017-06-21 09:44 | Progress Note ---
Subjective Date of Service: Jun 21, 2017. Subjective Pt evaluation today including: conversation w/ patient, conversation w/ family , physical exam, chart review, lab review, review of studies, conversation w/ outreach consultant, review of inpatient medication list Voiding: no voiding problems Patient is seen and examined by me. Pt had a dark marooned bleeding per rectum, feeling dizzy, but denies chest pain and shortness of breath. Pt denies nausea, vomiting and abdominal pain. Patient is at bedside. Pt is awake, alert and communicating with us. Pt is DNR and does have a history of metastatic pancreatic cancer and admitted currently with CVA. Patient was recently diagnosed with pancreatic cancer around November 2016. He initially underwent chemotherapy but due to significant illness it was decided to stop aggressive treatment. He then was tried on Xeloda however subsequent scans supported progression of his disease while on this medication. It was then decided to stop treatment for pancreatic cancer and pursue hospice services. Patient was recently established with hospice services approximately 1 week ago. Problem List Medical Problems: (1) Abnormal EKG Status: Acute (2) Aphasia Status: Acute (3) CVA (cerebral vascular accident) Status: Acute (4) Edema Status: Acute (5) Hyperglycemia Status: Acute (6) Metastasis from pancreatic cancer Status: Acute (7) Unstable angina Status: Acute Review of Systems Constitutional: + weight loss, + weakness, + fatigue, No fever, No sweats Respiratory: No cough, No shortness of breath Cardiac: No chest pain, No edema Abdomen: + GI bleeding, No pain, No nausea, No vomiting Neurologic: No memory loss Medications Medications (Trade) Dose Ordered Sig/[place] Route Start Time Stop Time Status Last Admin Dose Admin Insulin Aspart (novoLOG ASPART) SLIDING SCALE If C... ACHS SC 06/20/17 11:00 07/20/17 10:59 06/20/17 21:37 2 UNITS Simvastatin (Zocor Tab) 40 mg QPM PO 06/20/17 21:00 07/20/17 20:59 06/20/17 21:36 40 MG Potassium Chloride/Sodium Chloride 1,000 ml @ 80 mls/hr [id number] IV 06/20/17 12:15 07/20/17 12:14 06/21/17 01:29 80 MLS/HR Miscellaneous Information (Check Fentanyl Patch Placement) 1 ea QS N/A 06/20/17 16:00 07/20/17 15:59 06/21/17 00:08 1 EA Aspirin (Ecotrin Tab) 81 mg NOW ONCE PO 06/20/17 16:00 06/20/17 16:01 DC 06/20/17 15:52 81 MG Clopidogrel Bisulfate (plAVix TAB) 75 mg NOW ONCE PO 06/20/17 16:00 06/20/17 16:01 DC 06/20/17 15:52 75 MG Miscellaneous Information (Check Fentanyl Patch Placement) 1 ea QS N/A 06/21/17 00:00 07/21/17 00:00 06/21/17 00:08 1 EA Objective Vital Signs Date Time Temp Pulse Resp B/P (MAP) Pulse Ox O2 Delivery O2 Flow Rate FiO2 06/21/17 07:28 36.7 87 20 154/85 (108) 100 Room Air 06/21/17 04:00 Room Air 06/21/17 03:35 36.4 74 20 137/81 (99) 99 Room Air 06/21/17 00:00 Room Air 06/20/17 23:35 36.6 84 17 132/84 (100) 99 Room Air 06/20/17 20:00 Room Air 06/20/17 19:42 36.5 79 16 156/93 (114) 97 Room Air 06/20/17 16:00 Room Air 06/20/17 15:56 36.6 64 18 176/93 (120) 98 Room Air 06/20/17 12:00 Room Air 06/20/17 11:41 36.7 70 16 172/94 (120) 98 Room Air 06/20/17 10:14 71 16 172/96 100 06/20/17 09:08 71 16 172/96 100 Room Air Physical Exam General Appearance: + moderate distress Eyes: + abnormal sclerae exam (pale) Neck: supple Respiratory/Chest: lungs clear, normal breath sounds, no respiratory distress Cardiovascular: regular rate, rhythm, no murmur Abdomen: normal bowel sounds, non tender, soft, + pertinent finding (bleeding per rectum) Neurologic/Psychiatric: alert Laboratory Results Last 24 Hours Test 06/20/17 11:38 06/20/17 13:05 06/20/17 15:59 06/20/17 19:04 Bedside Glucose 164 mg/dl 185 mg/dl Troponin I 0.133 ng/ml 0.154 ng/ml Test 06/20/17 20:22 06/21/17 06:17 06/21/17 07:05 Bedside Glucose 235 mg/dl 220 mg/dl White Blood Count 11.26 K/uL Red Blood Count 2.38 M/uL Hemoglobin 7.3 g/dL Hematocrit 21.5 % Mean Corpuscular Volume 90.3 fL Mean Corpuscular Hemoglobin 30.7 pg Mean Corpuscular Hemoglobin Concent 34.0 g/dl Platelet Count 157 K/uL Mean Platelet Volume 10.3 fL Neutrophils (%) (Auto) 79.6 % Lymphocytes (%) (Auto) 10.9 % Monocytes (%) (Auto) 8.7 % Eosinophils (%) (Auto) 0.4 % Basophils (%) (Auto) 0.1 % Neutrophils # (Auto) 8.97 K/uL Lymphocytes # (Auto) 1.23 K/uL Monocytes # (Auto) 0.98 K/uL Eosinophils # (Auto) 0.04 K/uL Basophils # (Auto) 0.01 K/uL RDW Standard Deviation 54.6 fL RDW Coefficient of Variation 16.4 % Immature Granulocyte % (Auto) 0.3 % Immature Granulocyte # (Auto) 0.03 K/uL Poikilocytosis PRESENT Schistocytes 1+ Sodium Level 135 mmol/L Potassium Level 4.1 mmol/L Chloride Level 104 mmol/L Carbon Dioxide Level 21 mmol/L Anion Gap 10.0 mmol/L Blood Urea Nitrogen 22 mg/dl Creatinine 0.75 mg/dl Est Creatinine Clear Calc Drug Dose 88.2 ml/min Estimated GFR () 109.2 Estimated GFR (Non- 94.3 BUN/Creatinine Ratio 30.1 Random Glucose 187 mg/dl Estimated Average Glucose 120 mg/dl Hemoglobin A1c 5.8 % Calcium Level 7.5 mg/dl Triglycerides Level 89 mg/dl Cholesterol Level 71 mg/dl HDL Cholesterol 13 mg/dl LDL Cholesterol, Calculated 40 mg/dl VLDL Cholesterol, Calculated 18 mg/dl Cholesterol/HDL Ratio 5.5 Assessment and Plan 67 year old male with past medical history of pancreatic cancer with metastasis to liver and currently admitted with CVA on aspirin and Plavix had 2 blood dark lose with clot dorota colored bleed per rectum most likely secondary to Gi bleed with unknown source at this time. Upper vs Lower GI bleed -- Vital sign stable slightly tachycardic. -- NPO for now -- IV bolus NS 1L x1 -- Type and cross 2 units of PRBC and transfuse 1 unit. -- IV Protonix drip. -- Hold aspirin and Plavix for now. -- H/h q8 hr. -- GI Dr García is informed will see patient shortly, case discussed with him over the phone. -- Patient called and left a but shortly she arrived in the hospital did discuss the code status briefly and she wants to respect patient wishes DNR/ DNI -- [facility] Dr Baltazar accepted the patient to ICU for close monitoring. --We will continue [id number] ml/hr for now. --We will follow up with labs CVA with R Sided Deficits and Significant Aphasia: - Neurology following - ASA 81 mg daily and Plavix 75 mg daily ( hold for now risk vs benefit in light of GI bleed) - Atorvastatin 40 mg daily when oral meds resumed - Patient is stable at this time but given is co-morbidity of metastitic pancreatic CA his life expectancy is limited and his pro-thrombotic state given CA will put him at risk for further CVAs making morbidity/mortality more likely whether from his CA process vs thrombotic events T2DM: - Hold oral antidiabetics at this time and cover with SSI - can add his oral meds back pending diet institution and oral intake - reports chronic anorexia which may be a continued issue given his CA CAD S/P NSTEMI and PCI x 2: Presents with Elevated Troponin - Obtain echo for further evaluation; reports no CP with these symptoms HTN: - All anti-hypertensives held at this time to allow for permissive HTN Metastatic Pancreatic CA on Hospice (Revoked at this time): - Fentanyl 37.5 mg daily (recently increased to this dose), Oxycodone PRN, and Ibuprofen PRN; Add Morphine IV when NPO - reports difficulty controlling pain and that is why the fentanyl was increased - will monitor need for pain medications and will adjust and give recommendations; Roxanol may be good option especially if dysphagia is a continuing issue DVT SCD Code status DNR Continued [facility] stay due to: multiple IV medications needed Discharge planning: uncertain
[2017-06-21] MEDS: PANTOprazole INJ 40 MG in DEXTROSE 5% 100ML IV SCH ×3 (09:58→20:00)
[2017-06-21] MEDS ORDERED: NURSING VERBAL MED ORDER ONE ×2 (10:00→17:00)
[2017-06-21] MEDS: FENTANYL 25 MCG/HR TDSY TD SCH (10:07)
[2017-06-21] MEDS: FENTANYL 12 MCG/HR TDSY TD SCH (10:08)
[2017-06-21] MEDS ORDERED: SODIUM CHLORIDE 0.9% 1000ML 1,000 ML IV SCH (10:30)
--- NOTE | 2017-06-21 10:38 | Critical Care Consultation ---
Critical Care Consultation Date of Consultation: Jun 21, 2017. Attending Physician: Evangelist Wellington M.D. Reason for Consultation: Gastrointestinal bleeding History of Present Illness Patient is a 67-year-old male with a significant past medical history for pancreatic cancer with metastases to the liver who presented on June 20 to the emergency department with new onset focal deficit was ultimately diagnosed with an acute left hemispheric ischemic stroke. His hospital course was complicated by acute melanotic stools and a drop in his hemoglobin from 11.1-7.3. Patient already takes 81 mg aspirin daily as well as Plavix 75 mg, he has not been on anticoagulants. The patient's is at the bedside she understands the gravity of the patient' s illness as well as his terminal condition. The patient appears to have understanding of his current state. He is having difficulty in speaking and appears to be mildly a phasic however he does shake his head yes or no to appropriate questions and is able to follow complex commands with his left side. He appears to understand that he could be at risk for continued bleeding. He also appears to understand that this places him at risk for . He appears to understand th the risks and benefits of a blood transfusion, he declined to receive a blood transfusion at this time. This discussion took place in the presence of the bedside nurse as well as the patient's and the patient's is also in agreement with holding blood transfusions at this time. Family History Patient reports no known family medical history. Social History Smoking Status: Former Smoker Smokeless Tobacco Use: No Alcohol Use: none Drug Use: none Marital Status: Occupation Status: retired Allergies Coded Allergies: Lisinopril (Verified Adverse Reaction, Unknown, cough, 06/20/17) Home Medications Scheduled Amlodipine (Norvasc), 5 MG PO QPM Aspirin (Aspirin Ec), 81 MG PO DAILY Carvedilol (Coreg), 25 MG PO BID Clopidogrel (Plavix), 75 MG PO DAILY Fentanyl (Fentanyl), 1 PATCH TD [id number] Glipizide (Glipizide), 10 MG PO BID Simvastatin (Zocor), 40 MG PO QPM Scheduled PRN Colchicine (Colchicine), 0.6 MG PO DAILY PRN for GOUT Ibuprofen (Motrin), 800 MG PO BID PRN for Pain Oxycodone/Acetaminophen 5MG/325MG (Percocet 5MG/325MG), 1 TAB PO BID PRN for Pain Current Inpatient Medications Current Inpatient Medications Medications (Trade) Dose Ordered Sig/[place] Route Start Time Stop Time Status Last Admin Dose Admin Acetaminophen (Tylenol Tab) 650 mg Q4H PRN PO 06/20/17 09:00 07/20/17 08:59 Al Hydrox/Mg Hydrox/Simethicone (Maalox Max Susp) 15 ml Q4H PRN PO 06/20/17 09:00 07/20/17 08:59 Magnesium Hydroxide (Milk Of Magnesia Susp) 30 ml Q12H PRN PO 06/20/17 09:00 07/20/17 08:59 Ondansetron HCl (Zofran Inj) 4 mg Q6H PRN IV 06/20/17 09:00 07/20/17 08:59 Polyethylene (Miralax Powder Packet) 17 gm DAILY PRN PO 06/20/17 09:00 07/20/17 08:59 Insulin Aspart (novoLOG ASPART) SLIDING SCALE If C... ACHS SC 06/20/17 11:00 07/20/17 10:59 06/20/17 21:37 2 UNITS Glucose (Glucose 40% Gel) 15-30 GRAMS 15 GRAMS... UD PRN PO 06/20/17 09:00 07/20/17 08:59 Glucose (Glucose Chew Tab) 4-8 Tablets 4 Tabl... UD PRN PO 06/20/17 09:00 07/20/17 08:59 Dextrose (Dextrose 50% 50ML Syringe) 25-50ML OF 50% DW IV FOR... UD PRN IV 06/20/17 09:00 07/20/17 08:59 Glucagon (Glucagon Inj) 1 mg UD PRN SQ 06/20/17 09:00 07/20/17 08:59 Miscellaneous Information (Pharmacist Discharge Med Rec Consult) 1 ea UD PRN N/A 06/20/17 09:00 07/20/17 08:59 Aspirin (Ecotrin Tab) 81 mg DAILY PO 06/20/17 12:00 07/20/17 11:59 Future Hold Clopidogrel Bisulfate (plAVix TAB) 75 mg DAILY PO 06/20/17 12:00 07/20/17 11:59 Future Hold Colchicine (Colchicine Tab) 0.6 mg DAILY PRN PO 06/20/17 09:00 07/20/17 08:59 Ibuprofen (Motrin Tab) 800 mg BID PRN PO 06/20/17 09:00 07/20/17 08:59 Oxycodone/ Acetaminophen (Percocet 5-325mg Tab) 1 tab BID PRN PO 06/20/17 09:00 07/04/17 08:59 Simvastatin (Zocor Tab) 40 mg QPM PO 06/20/17 21:00 07/20/17 20:59 06/20/17 21:36 40 MG Morphine Sulfate (MoRPHine SULFATE INJ) 2 mg Q3H PRN IV 06/20/17 09:15 07/04/17 09:14 Potassium Chloride/Sodium Chloride 1,000 ml @ 80 mls/hr [id number] IV 06/20/17 12:15 07/20/17 12:14 06/21/17 01:29 80 MLS/HR Miscellaneous Information (Check Fentanyl Patch Placement) 1 ea QS N/A 06/20/17 16:00 07/20/17 15:59 06/21/17 08:00 1 EA Fentanyl (Duragesic Patch) 12 mcg Q3D@0900 TD 06/21/17 09:00 07/05/17 08:59 06/21/17 10:08 12 MCG Fentanyl (Duragesic Patch) 25 mcg Q3D@0900 TD 06/21/17 09:00 07/05/17 08:59 06/21/17 10:07 25 MCG Miscellaneous (Fentanyl Patch Remove & Waste) 1 ea Q3D@0859 N/A 06/21/17 08:59 07/21/17 08:58 06/21/17 08:59 1 EA Miscellaneous (Fentanyl Patch Remove & Waste) 1 ea Q3D@0859 N/A 06/21/17 08:59 07/21/17 08:58 06/21/17 08:59 1 EA Miscellaneous Information (Check Fentanyl Patch Placement) 1 ea QS N/A 06/21/17 00:00 07/21/17 00:00 06/21/17 08:00 1 EA Pantoprazole Sodium 40 mg/ Dextrose 100 ml @ 20 mls/hr Q5H IV 06/21/17 09:45 07/21/17 09:44 06/21/17 09:58 20 MLS/HR Miscellaneous Information (Nursing Verbal Med Order) 1 ea ONE ONCE N/A 06/21/17 10:00 06/21/17 10:01 UNV Review of Systems Unable to obtain secondary to patient's aphasia, he did decline chest pain, shortness of breath, diffuse pain Physical Exam Date Time Temp Pulse Resp B/P (MAP) Pulse Ox O2 Delivery O2 Flow Rate FiO2 06/21/17 08:45 99 Room Air 06/21/17 08:45 36.7 67 18 157/84 (108) 99 Room Air 06/21/17 07:28 36.7 87 20 154/85 (108) 100 Room Air 06/21/17 04:00 Room Air 06/21/17 03:35 36.4 74 20 137/81 (99) 99 Room Air 06/21/17 00:00 Room Air 06/20/17 23:35 36.6 84 17 132/84 (100) 99 Room Air 06/20/17 20:00 Room Air 06/20/17 19:42 36.5 79 16 156/93 (114) 97 Room Air 06/20/17 16:00 Room Air 06/20/17 15:56 36.6 64 18 176/93 (120) 98 Room Air 06/20/17 12:00 Room Air 06/20/17 11:41 36.7 70 16 172/94 (120) 98 Room Air General: Alert. nontoxic. Skin: Warm, dry, Head: Atraumatic Ears, nose, mouth and throat: airway patent Cardiovascular: Normal peripheral perfusion Respiratory: no respiratory distress Gastrointestinal: Non distended Musculoskeletal: No deformity Neuro: Right-sided flaccid paralysis, right-sided facial droop, positive aphasia Laboratory Results Last 24 Hours Test 06/20/17 11:38 06/20/17 13:05 06/20/17 15:59 06/20/17 19:04 Bedside Glucose 164 mg/dl 185 mg/dl Troponin I 0.133 ng/ml 0.154 ng/ml Test 06/20/17 20:22 06/21/17 06:17 06/21/17 07:05 Bedside Glucose 235 mg/dl 220 mg/dl White Blood Count 11.26 K/uL Red Blood Count 2.38 M/uL Hemoglobin 7.3 g/dL Hematocrit 21.5 % Mean Corpuscular Volume 90.3 fL Mean Corpuscular Hemoglobin 30.7 pg Mean Corpuscular Hemoglobin Concent 34.0 g/dl Platelet Count 157 K/uL Mean Platelet Volume 10.3 fL Neutrophils (%) (Auto) 79.6 % Lymphocytes (%) (Auto) 10.9 % Monocytes (%) (Auto) 8.7 % Eosinophils (%) (Auto) 0.4 % Basophils (%) (Auto) 0.1 % Neutrophils # (Auto) 8.97 K/uL Lymphocytes # (Auto) 1.23 K/uL Monocytes # (Auto) 0.98 K/uL Eosinophils # (Auto) 0.04 K/uL Basophils # (Auto) 0.01 K/uL RDW Standard Deviation 54.6 fL RDW Coefficient of Variation 16.4 % Immature Granulocyte % (Auto) 0.3 % Immature Granulocyte # (Auto) 0.03 K/uL Poikilocytosis PRESENT Schistocytes 1+ Sodium Level 135 mmol/L Potassium Level 4.1 mmol/L Chloride Level 104 mmol/L Carbon Dioxide Level 21 mmol/L Anion Gap 10.0 mmol/L Blood Urea Nitrogen 22 mg/dl Creatinine 0.75 mg/dl Est Creatinine Clear Calc Drug Dose 88.2 ml/min Estimated GFR () 109.2 Estimated GFR (Non- 94.3 BUN/Creatinine Ratio 30.1 Random Glucose 187 mg/dl Estimated Average Glucose 120 mg/dl Hemoglobin A1c 5.8 % Calcium Level 7.5 mg/dl Triglycerides Level 89 mg/dl Cholesterol Level 71 mg/dl HDL Cholesterol 13 mg/dl LDL Cholesterol, Calculated 40 mg/dl VLDL Cholesterol, Calculated 18 mg/dl Cholesterol/HDL Ratio 5.5 Diagnostic Results I have reviewed the brain MRI report as well as individual images, I have reviewed the carotid artery ultrasound report. Assessment & Plan Reason Critically Ill: Patient critically ill due to gastrointestinal bleeding PLAN: Neuro: Subacute ischemic CVA -Reviewed neurology recommendations -With the exception of HDL, patient's lipid profile within goal Resp: DO NOT intubate in event of respiratory arrest CV: Elevated troponin I measurement -Trend troponins every 8 GI/Nutrition: Melanotic stools -Patient declined blood transfusion at this time -GI consult -Started PPI infusion Pancreatic cancer with metastatic disease to the liver -Question portal vein pathology given metastatic disease -Not candidate for anticoagulation secondary to recent CVA Heme: Recent embolic phenomenon -Not candidate for anticoagulation secondary to recent CVA -Current active bleeding Endocrine: Hyperglycemia - Insulin sliding scale Vascular access: Peripheral IVs Code Status: DNR/DNI Patient with known metastatic pancreatic carcinoma, recent embolic CVA with significant neuro deficits, patient declined blood transfusion at this time. Await input from gastroenterology, however, the patient did not want any additional surgeries. I will explore comfort measures with the patient and his along with gastroenterology. While the gastrointestinal bleeding might represent a correctable medical condition, it may be inconsistent with the patient's wishes with regards to aggressive treatment and care. I have personally spent 50 minutes of critical care time in the direct management of this patient. This is a life/limb threatening event. This includes time spent evaluating patient, direct bedside care, chart review, placing orders, interpretation of diagnostic studies, discussion with consultants, patient, and/or family members regarding treatment decisions, as well as other required patient management activities. This time is exclusive of all separately billable procedures, and teaching time and separate from and in addition to any other critical care service time.
--- NOTE | 2017-06-21 11:49 | Neurology Progress Notes ---
Neurology Progress Note Date of Service Jun 21, 2017. Subjective No new neurological symptoms since yesterday. Patient denies any new pain. No new headaches. Echocardiogram was reviewed and unremarkable for cardioembolic sources of stroke Ultrasound of the carotids was unremarkable MRI of the brain report and images reviewed by myself and showed multiple small ischemic strokes in multiple territories, largest being in the left insular cortex area. Suggestive of an embolic event. Patient was transferred to the ICU due to large bloody bowel movements and signs of GI bleed. Aspirin and Plavix was stopped because of this. Objective Date Time Temp Pulse Resp B/P (MAP) Pulse Ox O2 Delivery O2 Flow Rate FiO2 06/21/17 11:00 81 18 156/89 (111) 99 Room Air 06/21/17 10:18 74 18 141/85 (103) 100 Room Air 06/21/17 08:45 99 Room Air 06/21/17 08:45 36.7 67 18 157/84 (108) 99 Room Air 06/21/17 07:28 36.7 87 20 154/85 (108) 100 Room Air 06/21/17 04:00 Room Air 06/21/17 03:35 36.4 74 20 137/81 (99) 99 Room Air 06/21/17 00:00 Room Air 06/20/17 23:35 36.6 84 17 132/84 (100) 99 Room Air 06/20/17 20:00 Room Air 06/20/17 19:42 36.5 79 16 156/93 (114) 97 Room Air 06/20/17 16:00 Room Air 06/20/17 15:56 36.6 64 18 176/93 (120) 98 Room Air 06/20/17 12:00 Room Air Last 24 Hours Test 06/20/17 13:05 06/20/17 15:59 06/20/17 19:04 06/20/17 20:22 Troponin I 0.133 ng/ml 0.154 ng/ml Bedside Glucose 185 mg/dl 235 mg/dl Test 06/21/17 06:17 06/21/17 07:05 White Blood Count 11.26 K/uL Red Blood Count 2.38 M/uL Hemoglobin 7.3 g/dL Hematocrit 21.5 % Mean Corpuscular Volume 90.3 fL Mean Corpuscular Hemoglobin 30.7 pg Mean Corpuscular Hemoglobin Concent 34.0 g/dl Platelet Count 157 K/uL Mean Platelet Volume 10.3 fL Neutrophils (%) (Auto) 79.6 % Lymphocytes (%) (Auto) 10.9 % Monocytes (%) (Auto) 8.7 % Eosinophils (%) (Auto) 0.4 % Basophils (%) (Auto) 0.1 % Neutrophils # (Auto) 8.97 K/uL Lymphocytes # (Auto) 1.23 K/uL Monocytes # (Auto) 0.98 K/uL Eosinophils # (Auto) 0.04 K/uL Basophils # (Auto) 0.01 K/uL RDW Standard Deviation 54.6 fL RDW Coefficient of Variation 16.4 % Immature Granulocyte % (Auto) 0.3 % Immature Granulocyte # (Auto) 0.03 K/uL Poikilocytosis PRESENT Schistocytes 1+ Sodium Level 135 mmol/L Potassium Level 4.1 mmol/L Chloride Level 104 mmol/L Carbon Dioxide Level 21 mmol/L Anion Gap 10.0 mmol/L Blood Urea Nitrogen 22 mg/dl Creatinine 0.75 mg/dl Est Creatinine Clear Calc Drug Dose 88.2 ml/min Estimated GFR () 109.2 Estimated GFR (Non- 94.3 BUN/Creatinine Ratio 30.1 Random Glucose 187 mg/dl Estimated Average Glucose 120 mg/dl Hemoglobin A1c 5.8 % Calcium Level 7.5 mg/dl Triglycerides Level 89 mg/dl Cholesterol Level 71 mg/dl HDL Cholesterol 13 mg/dl LDL Cholesterol, Calculated 40 mg/dl VLDL Cholesterol, Calculated 18 mg/dl Cholesterol/HDL Ratio 5.5 Bedside Glucose 220 mg/dl Imaging: As noted above in HPI Exam: Gen.: Patient is alert and oriented in no acute distress lying in bed Heart: Regular rate and rhythm Extremities: No gross deformities or rashes noted Neurological examination: Mental status: Patient is alert and oriented to person place and time. Attention concentration normal for the situation. Remote and recent memory difficult to assess due to expressive aphasia Speech: Moderate to severe expressive aphasia. Patient appears to have good understanding and follows most commands correctly. Cranial nerves: Extraocular muscles intact without nystagmus. moderate right facial droop. Facial sensation intact. Tongue midline. Good palatal elevation. Good shoulder shrug bilaterally. Hearing grossly intact voice. Strength: 5/5 both proximal and distal in left upper and lower extremity. 4+/5 in right upper extremity with right arm pronator drift. Right lower extremity 5 /5. Coordination: Patient has good finger to nose without dysmetria. Station within the bed is normal. Current Inpatient Medications Medications (Trade) Dose Ordered Sig/[place] Route Start Time Stop Time Status Last Admin Dose Admin Acetaminophen (Tylenol Tab) 650 mg Q4H PRN PO 06/20/17 09:00 07/20/17 08:59 Al Hydrox/Mg Hydrox/Simethicone (Maalox Max Susp) 15 ml Q4H PRN PO 06/20/17 09:00 07/20/17 08:59 Future Hold Magnesium Hydroxide (Milk Of Magnesia Susp) 30 ml Q12H PRN PO 06/20/17 09:00 07/20/17 08:59 Ondansetron HCl (Zofran Inj) 4 mg Q6H PRN IV 06/20/17 09:00 07/20/17 08:59 Polyethylene (Miralax Powder Packet) 17 gm DAILY PRN PO 06/20/17 09:00 07/20/17 08:59 Insulin Aspart (novoLOG ASPART) SLIDING SCALE If C... ACHS SC 06/20/17 11:00 07/20/17 10:59 Future Hold 06/20/17 21:37 2 UNITS Glucose (Glucose 40% Gel) 15-30 GRAMS 15 GRAMS... UD PRN PO 06/20/17 09:00 07/20/17 08:59 Glucose (Glucose Chew Tab) 4-8 Tablets 4 Tabl... UD PRN PO 06/20/17 09:00 07/20/17 08:59 Dextrose (Dextrose 50% 50ML Syringe) 25-50ML OF 50% DW IV FOR... UD PRN IV 06/20/17 09:00 07/20/17 08:59 Glucagon (Glucagon Inj) 1 mg UD PRN SQ 06/20/17 09:00 07/20/17 08:59 Miscellaneous Information (Pharmacist Discharge Med Rec Consult) 1 ea UD PRN N/A 06/20/17 09:00 07/20/17 08:59 Aspirin (Ecotrin Tab) 81 mg DAILY PO 06/20/17 12:00 07/20/17 11:59 Future Hold Clopidogrel Bisulfate (plAVix TAB) 75 mg DAILY PO 06/20/17 12:00 07/20/17 11:59 Future Hold Colchicine (Colchicine Tab) 0.6 mg DAILY PRN PO 06/20/17 09:00 07/20/17 08:59 Ibuprofen (Motrin Tab) 800 mg BID PRN PO 06/20/17 09:00 07/20/17 08:59 Oxycodone/ Acetaminophen (Percocet 5-325mg Tab) 1 tab BID PRN PO 06/20/17 09:00 07/04/17 08:59 Simvastatin (Zocor Tab) 40 mg QPM PO 06/20/17 21:00 07/20/17 20:59 Future Hold 06/20/17 21:36 40 MG Miscellaneous Information (Check Fentanyl Patch Placement) 1 ea QS N/A 06/20/17 16:00 07/20/17 15:59 06/21/17 08:00 1 EA Fentanyl (Duragesic Patch) 12 mcg Q3D@0900 TD 06/21/17 09:00 07/05/17 08:59 06/21/17 10:08 12 MCG Fentanyl (Duragesic Patch) 25 mcg Q3D@0900 TD 06/21/17 09:00 07/05/17 08:59 06/21/17 10:07 25 MCG Miscellaneous (Fentanyl Patch Remove & Waste) 1 ea Q3D@0859 N/A 06/21/17 08:59 07/21/17 08:58 06/21/17 08:59 1 EA Miscellaneous (Fentanyl Patch Remove & Waste) 1 ea Q3D@0859 N/A 06/21/17 08:59 07/21/17 08:58 06/21/17 08:59 1 EA Miscellaneous Information (Check Fentanyl Patch Placement) 1 ea QS N/A 06/21/17 00:00 07/21/17 00:00 06/21/17 08:00 1 EA Pantoprazole Sodium 40 mg/ Dextrose 100 ml @ 20 mls/hr Q5H IV 06/21/17 09:45 07/21/17 09:44 06/21/17 09:58 20 MLS/HR Sodium Chloride 1,000 ml @ 50 mls/hr Q20H IV 06/21/17 10:30 07/21/17 10:29 06/21/17 10:37 100 MLS/HR Morphine Sulfate (MoRPHine SULFATE INJ) 2 mg Q15M PRN IV 06/21/17 11:15 07/04/17 09:14 Impression This is a 67-year-old right-handed male who presents with acute mild right hemiplegia, moderate right facial droop, and moderate to severe expressive aphasia. Multi-ischemic stroke seen on MRI suggestive of embolic etiology. With current metastatic pancreatic cancer there is a high chance for hypercoagulable state due to his cancer. Other known stroke risk factors include diabetes type 2 and hypertension. Plan aspirin and Plavix are on hold due to GI bleed. With evidence of likely embolic stroke in the setting of cancer and likely hypercoagulable state, normally I would consider anticoagulation for this patient, but again we are unable to do this due to current GI bleed. Overall discussed with patient and that we are between a rock and a hard place in terms of this treatment because he is at high risk for repeat and ongoing strokes but we are unable to treat him with any sort of stroke prevention medication due to his GI bleed. Overall prognosis for recovery is poor. No additional neurological recommendations at this time. If there is any questions or concerns, feel free to call/page me.
--- NOTE | 2017-06-21 13:09 | GASTROINTESTINAL CONSULTATION ---
DATE OF CONSULTATION: 06/21/2017 CHIEF COMPLAINT: Maroon dark-appearing stools, history of metastatic pancreatic cancer to the liver, ST-segment elevation. I was consulted on Mr. Lin in the mid morning today for development of suspected lower GI bleeding. The patient was transferred down to the ICU with anticipation of blood transfusion and additional workup. The patient is a DNR status and is unsure if he wanted any additional aggressive therapies performed. At this time, the patient is actually being transferred back to the second floor as he has declined blood products. The patient apparently had dark maroon-colored stools with some dizziness, but no chest pain or shortness of breath. The patient did not have any abdominal pain, nausea, vomiting, hematemesis or coffee-ground emesis. The patient also was admitted with a CVA. Recent diagnosis of his pancreatic cancer was in the Fall of 2016, receiving chemotherapy, but this was eventually stopped. Because of the progression of disease, hospice services were recommended. The patient and his , who was present at the bedside today, report no known history of peptic ulcer disease or other GI bleeding. PAST MEDICAL HISTORY: Includes aphasia, cerebrovascular accident, edema, hyperglycemia, pancreatic cancer with metastasis to the liver, unstable angina. CURRENT MEDICATIONS: Include insulin, simvastatin, potassium replacement, coated aspirin and Plavix. He is not on anticoagulants at this time. LABORATORY STUDIES: His troponin levels, however, were elevated yesterday at 0.13, 0.133 and 0.154 respectively. Hemoglobin on 06/21/2017 at 1:00 p.m. was 7.3. BUN and creatinine yesterday 22 and 0.75. The patient was started on IV Protonix drip and typed and crossed for 2 units. The patient was transferred to the ICU for additional care. REVIEW OF SYSTEMS: Otherwise noncontributory based on 13-point exam except for mentioned above. FAMILY HISTORY: Noncontributory. SOCIAL HISTORY: The patient was a former smoker but currently does not use tobacco products. He denies alcohol use. Lives with his family. He is retired. ALLERGIES: TO LISINOPRIL. HOME MEDICATIONS: Include amlodipine, aspirin, carvedilol, Plavix, fentanyl, glipizide and simvastatin. PHYSICAL EXAMINATION: VITAL SIGNS: At noon today, temperature 36.7, heart rate 81, respirations 18, blood pressure 156/89 and 99% on room air. GENERAL: The patient is awake and alert but is aphasic but does answer some questions. HEENT: Sclerae and conjunctivae are pale. There is no icterus. NECK: Normal range of motion. HEART: Normal S1, S2. LUNGS: Clear to auscultation without rales, rhonchi or wheezes. ABDOMEN: Soft, nontender, nondistended, with good bowel sounds. EXTREMITIES: Without edema. RECTAL: Deferred. CURRENT LABORATORY STUDIES: From 6:00 this morning, white count 11.2. He did have a hemoglobin of 11.6 yesterday at 7:00 a.m. 06/20/2017 and is down to 7.3. Platelets 157,000. His INR on 06/20/2017 was 1.8, PTT 32.2. BUN and creatinine of 22 and 0.75 today. IMPRESSION AND PLAN: Patient with symptoms of maroon-colored stools with 2 units of packed cells ordered but none transfused today. His laboratory study shows hemoglobin since 06/05/2017 that was 10.3, 06/20/2017 of 11.1 and today 7.3. The differential diagnosis likely includes a lower gastrointestinal bleeding source including ischemic colitis, arteriovenous malformation, polypoid lesions or possible mass. Upper sources are possible including PUD/gastritis/ AVM and hemobilia. However, BUN is not overly elevated at this time. There is also no report of hematemesis or coffee-ground emesis. Currently, given his elevated troponin levels, ST-segment changes on EKG, prior history of inferior infarct, endoscopic examination carries a higher risk. Presently, the patient is refusing transfusions as well as maintains a DNR status and does not want any aggressive or measures according to the team and the patient and family. Therefore, would observe hemoglobin and consider transfusion if the patient ultimately is agreeable. At the present time, would avoid antiplatelet and aspirin therapy given the setting of an acute GI bleed. Cardiopulmonary support as recommended by the primary team and consultants. If the patient is agreeable to transfusion and cardiopulmonary assess is deemed reasonable, we can consider bidirectional endoscopy if the patient is agreeable and can tolerate at least a limited bowel prep. However, at the present time, the patient and do not wish to pursue. Will sign off at this time, please call if I can be of further assistance in your patient's care. D[place]
[2017-06-21 14:34] LABS: HEMATOCRIT 17.4 % (42-52)
[2017-06-21] MEDS ORDERED: LORAZEPAM 2 MG/ML 1 ML VIAL IV PRN (17:00)
[2017-06-21] MEDS: LORAZEPAM INJ 1 MG in SYRINGE 0.5 ML IV PRN (18:05)
[2017-06-21 22:51] LABS: HEMATOCRIT 17.1 % (42-52); HEMOGLOBIN 5.8 g/dL (14.0-18.0)
[2017-06-22] VITALS: BP 149/84; PULSE 80; TEMP 37.1; O2SAT 99
[2017-06-22] MEDS: PANTOprazole INJ 40 MG in DEXTROSE 5% 100ML IV SCH ×6 (00:04→23:16)
[2017-06-22] MEDS: CHECK FENTANYL PATCH PLACEMENT SCH ×8 (00:04→23:16)
[2017-06-22] MEDS: LORAZEPAM INJ 1 MG in SYRINGE 0.5 ML IV PRN ×2 (02:39→20:45)
[2017-06-22] MEDS ORDERED: NURSING VERBAL MED ORDER ONE (05:15)
[2017-06-22 06:47] LABS: HEMATOCRIT 17.6 % (42-52); MEAN CELL VOLUME 90.3 fL (80-100); MEAN CORPUSCULAR HEMOGLOBIN 30.8 pg (25-34); MEAN CORPUSCULAR HGB CONC 34.1 g/dl (32-36); MEAN PLATELET VOLUME 9.8 fL (7.4-10.4); PLATELET COUNT 153 K/uL (130-400); RED CELL DISTRIBUTION WIDTH CV 16.7 % (11.5-14.5); RED CELL DISTRIBUTION WIDTH SD 55.4 fL (36.4-46.3); WHITE BLOOD COUNT 15.43 K/uL (4.8-10.8)
[2017-06-22 07:09] LABS: CALCIUM 7.6 mg/dl (8.5-10.1); CREATININE 0.76 mg/dl (0.60-1.40); POTASSIUM 3.8 mmol/L (3.5-5.1)
[2017-06-22 07:29] LABS: BASO % 0.1 %; BASO ABS # 0.02 K/uL (0-0.2); EOS % 0.6 %; IG# 0.13 K/uL (0.00-0.02); MONO % 9.9 %; MONO ABS # 1.52 K/uL (0.11-0.59); NEUT % 77.6 %; NEUT ABS # 11.96 K/uL (1.4-6.5)
[2017-06-22] MEDS ORDERED: FENTANYL PATCH REMOVE & WASTE SCH (08:59)
[2017-06-22] MEDS ORDERED: FENTANYL 25 MCG/HR TDSY TD SCH (09:00)
[2017-06-22] MEDS ORDERED: FENTANYL 12 MCG/HR TDSY TD SCH (09:00)
--- NOTE | 2017-06-22 10:18 | Progress Note ---
Subjective Date of Service: Jun 22, 2017. Subjective Pt evaluation today including: conversation w/ patient, conversation w/ family , physical exam, lab review, review of inpatient medication list Pain: no pain reported Voiding: no voiding problems, no incontinence Pt is sleeping comfortably without any respiratory distress, no more bleed per rectum. We need at home hospice care, so we need case management help to set up this in place. Problem List Medical Problems: (1) Abnormal EKG Status: Acute (2) Aphasia Status: Acute (3) CVA (cerebral vascular accident) Status: Acute (4) Edema Status: Acute (5) Hyperglycemia Status: Acute (6) Metastasis from pancreatic cancer Status: Acute (7) Unstable angina Status: Acute Review of Systems All Other Systems: Reviewed and Negative Medications Medications (Trade) Dose Ordered Sig/[place] Route Start Time Stop Time Status Last Admin Dose Admin Sodium Chloride 1,000 ml @ 50 mls/hr Q20H IV 06/21/17 10:30 07/21/17 10:29 Future Hold 06/21/17 10:37 100 MLS/HR Lorazepam 1 mg/ Syringe 1 ml @ 1 mls/min Q8H PRN IV 06/21/17 17:00 07/21/17 16:59 06/22/17 02:39 1 MLS/MIN Objective Vital Signs Date Time Temp Pulse Resp B/P (MAP) Pulse Ox O2 Delivery O2 Flow Rate FiO2 06/22/17 08:00 Room Air 06/22/17 00:00 37.1 80 20 149/84 (105) 99 Room Air 06/22/17 00:00 Room Air 06/21/17 15:30 99 Room Air 06/21/17 11:50 36.7 81 18 99 06/21/17 11:00 81 18 156/89 (111) 99 Room Air 06/21/17 10:18 74 18 141/85 (103) 100 Room Air Physical Exam General Appearance: no apparent distress Eyes: EOMI Neck: supple Respiratory/Chest: lungs clear Cardiovascular: regular rate, rhythm Abdomen: normal bowel sounds, non tender, soft Neurologic/Psychiatric: alert, oriented x 3 Laboratory Results Last 24 Hours Test 06/21/17 11:10 06/21/17 14:05 06/21/17 22:16 06/22/17 06:08 Bedside Glucose 260 mg/dl Hemoglobin 6.0 g/dL 5.8 g/dL 6.0 g/dL Hematocrit 17.4 % 17.1 % 17.6 % White Blood Count 15.43 K/uL Red Blood Count 1.95 M/uL Mean Corpuscular Volume 90.3 fL Mean Corpuscular Hemoglobin 30.8 pg Mean Corpuscular Hemoglobin Concent 34.1 g/dl Platelet Count 153 K/uL Mean Platelet Volume 9.8 fL Neutrophils (%) (Auto) 77.6 % Lymphocytes (%) (Auto) 11.0 % Monocytes (%) (Auto) 9.9 % Eosinophils (%) (Auto) 0.6 % Basophils (%) (Auto) 0.1 % Neutrophils # (Auto) 11.96 K/uL Lymphocytes # (Auto) 1.70 K/uL Monocytes # (Auto) 1.52 K/uL Eosinophils # (Auto) 0.10 K/uL Basophils # (Auto) 0.02 K/uL RDW Standard Deviation 55.4 fL RDW Coefficient of Variation 16.7 % Immature Granulocyte % (Auto) 0.8 % Immature Granulocyte # (Auto) 0.13 K/uL Poikilocytosis PRESENT Sodium Level 135 mmol/L Potassium Level 3.8 mmol/L Chloride Level 104 mmol/L Carbon Dioxide Level 24 mmol/L Anion Gap 7.0 mmol/L Blood Urea Nitrogen 26 mg/dl Creatinine 0.76 mg/dl Est Creatinine Clear Calc Drug Dose 87.0 ml/min Estimated GFR () 108.7 Estimated GFR (Non- 93.7 BUN/Creatinine Ratio 34.3 Random Glucose 188 mg/dl Calcium Level 7.6 mg/dl Assessment and Plan 67 year old male with past medical history of pancreatic cancer with metastasis to liver and currently admitted with CVA on aspirin and Plavix had 2 blood dark lose with clot dorota colored bleed per rectum most likely secondary to Gi bleed with unknown source at this time. Upper vs Lower GI bleed - no more bleed per rectum. -pt refuse transfusion and want to be comfort care. -continue iv protnix drip for today. -in home hospice as per family. CVA with R Sided Deficits and Significant Aphasia: - Neurology following - ASA 81 mg daily and Plavix 75 mg daily ( hold for now risk vs benefit in light of GI bleed) - Atorvastatin 40 mg daily when oral meds resumed - Patient is stable at this time but given is co-morbidity of metastitic pancreatic CA his life expectancy is limited and his pro-thrombotic state given CA will put him at risk for further CVAs making morbidity/mortality more likely whether from his CA process vs thrombotic events T2DM: - Hold oral antidiabetics at this time and cover with SSI - can add his oral meds back pending diet institution and oral intake - reports chronic anorexia which may be a continued issue given his CA CAD S/P NSTEMI and PCI x 2: Presents with Elevated Troponin - Obtain echo for further evaluation; reports no CP with these symptoms HTN: - All anti-hypertensives held at this time to allow for permissive HTN Metastatic Pancreatic CA on Hospice (Revoked at this time): - Fentanyl 37.5 mg daily (recently increased to this dose), Oxycodone PRN, and Ibuprofen PRN; Add Morphine IV when NPO - reports difficulty controlling pain and that is why the fentanyl was increased - will monitor need for pain medications and will adjust and give recommendations; Roxanol may be good option especially if dysphagia is a continuing issue DVT SCD Code status DNR case management assistance with hospice. Continued [facility] stay due to: multiple IV medications needed Discharge planning: uncertain
[2017-06-22 14:35] LABS: HEMATOCRIT 18.5 % (42-52); HEMOGLOBIN 6.2 g/dL (14.0-18.0)
[2017-06-22 22:28] LABS: HEMATOCRIT 17.8 % (42-52)
[2017-06-23] VITALS (15 sets, daily range): BP systolic 111–175; BP diastolic 78–102; PULSE 73–98; TEMP 36.4–37.5; O2SAT 95–100
[2017-06-23] MEDS: PANTOprazole INJ 40 MG in DEXTROSE 5% 100ML IV SCH ×4 (04:23→21:24)
[2017-06-23 06:07] LABS: HEMATOCRIT 18.1 % (42-52); HEMOGLOBIN 5.9 g/dL (14.0-18.0); MEAN CELL VOLUME 91.4 fL (80-100); MEAN CORPUSCULAR HEMOGLOBIN 29.8 pg (25-34); MEAN CORPUSCULAR HGB CONC 32.6 g/dl (32-36); MEAN PLATELET VOLUME 9.6 fL (7.4-10.4); NUCLEATED RED BLOOD CELL ABS 0.07 K/uL (0-0); PLATELET COUNT 131 K/uL (130-400); RED CELL DISTRIBUTION WIDTH CV 16.8 % (11.5-14.5); RED CELL DISTRIBUTION WIDTH SD 55.4 fL (36.4-46.3); WHITE BLOOD COUNT 16.72 K/uL (4.8-10.8)
[2017-06-23 06:28] LABS: BASO % 0.1 %; BASO ABS # 0.02 K/uL (0-0.2); EOS % 0.8 %; EOS ABS # 0.14 K/uL (0-0.5); IG# 0.12 K/uL (0.00-0.02); LYMPH % 10.9 %; LYMPH ABS # 1.82 K/uL (1.2-3.4); MONO % 8.5 %; MONO ABS # 1.42 K/uL (0.11-0.59)
[2017-06-23 06:29] LABS: CALCIUM 7.6 mg/dl (8.5-10.1); CREATININE 0.62 mg/dl (0.60-1.40); POTASSIUM 3.2 mmol/L (3.5-5.1)
[2017-06-23] MEDS: CHECK FENTANYL PATCH PLACEMENT SCH ×6 (08:00→23:41)
--- NOTE | 2017-06-23 08:45 | Clinical Documentation Query ---
SISSY Gant : CLINICAL DOCUMENTATION QUERIES QUERY 1 OF 3 Patient is a 67 year old male admitted for treatment of acute left hemispheric stroke. MRI of the brain read to include: "Multiple foci of restricted diffusion, including a 2.9 cm focus within the left insular cortex consistent with acute to subacute infarction. No significant mass effect. No hemorrhagic conversion. The distribution suggests an embolic event." If in agreement with the suggestion of this being an embolic showering type event, please explicitly document this in your notes as this cannot be captured from radiology interpretation alone. Thank you. In your clinical opinion is this patient being managed for: (x ) CVA due to cerebral emboli ( ) Not Agree ( ) Other explanation of clinical findings (Please Explain) ( ) Unable to determine (Please Define) ( ) Need to Discuss The medical record reflects the following clinical findings, treatment, and risk factors. Clinical Indicators: As above Treatment: Telemetry, Neurology consultation Risk Factors: Age, cancer, hypertension, DM2 QUERY 2 OF 3 His hospital course was complicated by acute melanotic stools and a drop in his hemoglobin from 11.1 g/dl to 5.9 g/dl. Critical direct care specialist noted the following, none of which has been documented subsequently. "I have discussed the echocardiogram findings with the patient, I am concerned the patient has had a non-ST elevation NV and now has acute congestive heart failure with reduced EF, with concrement and gastrointestinal hemorrhage" In your clinical opinion is this patient being managed for: ( ) Type 2 NV and acute systolic CHF ( ) Type 2 NV and acute systolic CHF, ruled out ( ) Not Agree ( ) Other explanation of clinical findings (Please Explain) ( ) Unable to determine (Please Define) ( ) Need to Discuss The medical record reflects the following clinical findings, treatment, and risk factors. Clinical Indicators: As above Treatment: Holding of transfusion, echocardiogram, transfer to ICU, withholding of endoscopy Risk Factors: Acute GI bleeding with severe anemia, IVF administration. QUERY 3 OF 3 As above, serum H&H declined from 11.1 g/dl and 33.4% to 5.9 g/dl and 18.1%. GI consultation completed. PPI infusion ongoing. Offered but refused transfusion and/or further clinical diagnostics at this time. Ongoing monitoring with serial hematology. In your clinical opinion is this patient being managed for: ( ) Acute blood loss anemia ( ) Not Agree ( ) Other explanation of clinical findings (Please Explain) ( ) Unable to determine (Please Define) ( ) Need to Discuss The medical record reflects the following clinical findings, treatment, and risk factors. Clinical Indicators: As above Treatment: PPI infusion ongoing. Offered but refused transfusion and/or further clinical diagnostics at this time. Ongoing monitoring with serial hematology Risk Factors: ASA, Plavix Please clarify and document your clinical opinion in the progress notes and discharge summary. Terms such as "probable", "suspected", "likely", "questionable", "possible", or "still to be ruled out" are acceptable. IF IN AGREEMENT, YOU MUST DOCUMENT ABOVE DIAGNOSTIC STATEMENT IN DAILY PROGRESS NOTES AND DISCHARGE SUMMARY. This document is not part of the patient's record. Thank You, Otis Gerard, ELIEZER [phone]
[2017-06-23] MEDS: OXYCODONE/ACETAMINOPHEN 5-325 TAB PO PRN ×2 (14:07→21:24)
--- NOTE | 2017-06-23 16:29 | Progress Note ---
Subjective Date of Service: Jun 23, 2017. Subjective Pt evaluation today including: conversation w/ patient, conversation w/ family , physical exam, lab review, review of inpatient medication list Pain: no pain PO Intake: poor Voiding: no voiding problems patient feels fatigued complains of right arm and leg weakness, asks why? explained about ischemic stroke says his speech is improving slightly discussed goals of care, ultimately he wants to go home, wants hospice says he was only on hospice for pain control with the Fentanyl patch prior to stroke he was independent, walking in [place], hunting discussed options of home health he and open to blood transfusion if it improves his strength reviewed recent labs, Hb 5.9 Problem List Medical Problems: (1) Abnormal EKG Status: Acute (2) Aphasia Status: Acute (3) CVA (cerebral vascular accident) Status: Acute (4) Edema Status: Acute (5) Hyperglycemia Status: Acute (6) Metastasis from pancreatic cancer Status: Acute (7) Unstable angina Status: Acute Review of Systems Constitutional: + weakness, + fatigue Respiratory: + dyspnea on exertion Neurologic: + weakness (right arm and right leg), + problem reported (aphasia) All Other Systems: Reviewed and Negative Medications Current Inpatient Medications Medications (Trade) Dose Ordered Sig/[place] Route Start Time Stop Time Status Last Admin Dose Admin Acetaminophen (Tylenol Tab) 650 mg Q4H PRN PO 06/20/17 09:00 07/20/17 08:59 Al Hydrox/Mg Hydrox/Simethicone (Maalox Max Susp) 15 ml Q4H PRN PO 06/20/17 09:00 07/20/17 08:59 Future Hold Magnesium Hydroxide (Milk Of Magnesia Susp) 30 ml Q12H PRN PO 06/20/17 09:00 07/20/17 08:59 Ondansetron HCl (Zofran Inj) 4 mg Q6H PRN IV 06/20/17 09:00 07/20/17 08:59 Polyethylene (Miralax Powder Packet) 17 gm DAILY PRN PO 06/20/17 09:00 07/20/17 08:59 Insulin Aspart (novoLOG ASPART) SLIDING SCALE If C... ACHS SC 06/20/17 11:00 07/20/17 10:59 Future Hold 06/20/17 21:37 2 UNITS Glucose (Glucose 40% Gel) 15-30 GRAMS 15 GRAMS... UD PRN PO 06/20/17 09:00 07/20/17 08:59 Glucose (Glucose Chew Tab) 4-8 Tablets 4 Tabl... UD PRN PO 06/20/17 09:00 07/20/17 08:59 Dextrose (Dextrose 50% 50ML Syringe) 25-50ML OF 50% DW IV FOR... UD PRN IV 06/20/17 09:00 07/20/17 08:59 Glucagon (Glucagon Inj) 1 mg UD PRN SQ 06/20/17 09:00 07/20/17 08:59 Miscellaneous Information (Pharmacist Discharge Med Rec Consult) 1 ea UD PRN N/A 06/20/17 09:00 07/20/17 08:59 Aspirin (Ecotrin Tab) 81 mg DAILY PO 06/20/17 12:00 07/20/17 11:59 Future Hold Clopidogrel Bisulfate (plAVix TAB) 75 mg DAILY PO 06/20/17 12:00 07/20/17 11:59 Future Hold Colchicine (Colchicine Tab) 0.6 mg DAILY PRN PO 06/20/17 09:00 07/20/17 08:59 Ibuprofen (Motrin Tab) 800 mg BID PRN PO 06/20/17 09:00 07/20/17 08:59 Oxycodone/ Acetaminophen (Percocet 5-325mg Tab) 1 tab BID PRN PO 06/20/17 09:00 07/04/17 08:59 06/23/17 14:07 1 TAB Simvastatin (Zocor Tab) 40 mg QPM PO 06/20/17 21:00 07/20/17 20:59 Future Hold 06/20/17 21:36 40 MG Miscellaneous Information (Check Fentanyl Patch Placement) 1 ea QS N/A 06/20/17 16:00 07/20/17 15:59 06/23/17 15:44 1 EA Fentanyl (Duragesic Patch) 12 mcg Q3D@0900 TD 06/21/17 09:00 07/05/17 08:59 06/21/17 10:08 12 MCG Fentanyl (Duragesic Patch) 25 mcg Q3D@0900 TD 06/21/17 09:00 07/05/17 08:59 06/21/17 10:07 25 MCG Miscellaneous (Fentanyl Patch Remove & Waste) 1 ea Q3D@0859 N/A 06/21/17 08:59 07/21/17 08:58 06/21/17 08:59 1 EA Miscellaneous (Fentanyl Patch Remove & Waste) 1 ea Q3D@0859 N/A 06/21/17 08:59 07/21/17 08:58 06/21/17 08:59 1 EA Miscellaneous Information (Check Fentanyl Patch Placement) 1 ea QS N/A 06/21/17 00:00 07/21/17 00:00 06/23/17 15:44 1 EA Pantoprazole Sodium 40 mg/ Dextrose 100 ml @ 20 mls/hr Q5H IV 06/21/17 09:45 07/21/17 09:44 06/23/17 15:42 20 MLS/HR Sodium Chloride 1,000 ml @ 50 mls/hr Q20H IV 06/21/17 10:30 07/21/17 10:29 Future Hold 06/21/17 10:37 100 MLS/HR Morphine Sulfate (MoRPHine SULFATE INJ) 2 mg Q15M PRN IV 06/21/17 11:15 07/04/17 09:14 Lorazepam 1 mg/ Syringe 1 ml @ 1 mls/min Q8H PRN IV 06/21/17 17:00 07/21/17 16:59 06/22/17 20:45 1 MLS/MIN Lorazepam (Ativan Inj) 1 mg Q8H PRN IV 06/21/17 17:00 07/21/17 16:59 Heparin Sodium (Porcine) (Heparin 100 Unit/ml 5ml Flush) 5 ml PRN PRN IV 06/22/17 00:30 07/22/17 00:29 Objective Vital Signs Date Time Temp Pulse Resp B/P (MAP) Pulse Ox O2 Delivery O2 Flow Rate FiO2 06/23/17 16:01 37.1 73 16 165/93 96 06/23/17 15:45 37.1 77 18 167/93 95 06/23/17 15:15 37.5 86 16 158/91 98 06/23/17 15:05 36.6 95 16 158/86 98 06/23/17 14:30 36.6 74 18 163/85 97 06/23/17 13:30 36.6 88 16 164/89 97 4/2/18 13:00 37.4 98 16 170/102 98 06/23/17 12:30 36.9 79 16 172/94 98 06/23/17 12:15 36.4 76 16 171/89 96 06/23/17 12:00 37.1 85 16 171/96 96 06/23/17 08:00 99 Room Air 06/23/17 00:00 Room Air Physical Exam General Appearance: WD/WN, no apparent distress Eyes: normal inspection, EOMI, sclerae normal ENT: normal ENT inspection, hearing grossly normal, pharynx normal Neck: supple, no adenopathy, no JVD, trachea midline Respiratory/Chest: chest non-tender, lungs clear, normal breath sounds, no respiratory distress, no accessory muscle use Cardiovascular: regular rate, rhythm, no edema, no gallop, no JVD, no murmur Abdomen: normal bowel sounds, non tender, soft, no organomegaly Extremities: normal range of motion, non-tender, normal inspection, no pedal edema, no calf tenderness, pelvis stable Neurologic/Psychiatric: box hinge and lock attacher II-XII nml as tested, alert, normal mood/affect, oriented x 3, + abnormal gait, + motor weakness (right arm and hand, right leg 4 out of 5 strength) Skin: normal color, warm/dry, no rash Laboratory Results Last 24 Hours Test 06/22/17 21:50 06/23/17 05:33 Hemoglobin 6.0 g/dL 5.9 g/dL Hematocrit 17.8 % 18.1 % White Blood Count 16.72 K/uL Red Blood Count 1.98 M/uL Mean Corpuscular Volume 91.4 fL Mean Corpuscular Hemoglobin 29.8 pg Mean Corpuscular Hemoglobin Concent 32.6 g/dl Platelet Count 131 K/uL Mean Platelet Volume 9.6 fL Neutrophils (%) (Auto) 79.0 % Lymphocytes (%) (Auto) 10.9 % Monocytes (%) (Auto) 8.5 % Eosinophils (%) (Auto) 0.8 % Basophils (%) (Auto) 0.1 % Neutrophils # (Auto) 13.20 K/uL Lymphocytes # (Auto) 1.82 K/uL Monocytes # (Auto) 1.42 K/uL Eosinophils # (Auto) 0.14 K/uL Basophils # (Auto) 0.02 K/uL RDW Standard Deviation 55.4 fL RDW Coefficient of Variation 16.8 % Immature Granulocyte % (Auto) 0.7 % Immature Granulocyte # (Auto) 0.12 K/uL Nucleated RBC Absolute Count (auto) 0.07 K/uL Nucleated Red Blood Cells % 0.4 % Toxic Vacuolation 1+ Schistocytes 1+ Sodium Level 136 mmol/L Potassium Level 3.2 mmol/L Chloride Level 102 mmol/L Carbon Dioxide Level 23 mmol/L Anion Gap 11.0 mmol/L Blood Urea Nitrogen 17 mg/dl Creatinine 0.62 mg/dl Est Creatinine Clear Calc Drug Dose 106.6 ml/min Estimated GFR () 118.1 Estimated GFR (Non- 101.9 BUN/Creatinine Ratio 27.9 Random Glucose 210 mg/dl Calcium Level 7.6 mg/dl Assessment and Plan 67 year old male with past medical history of pancreatic cancer with metastasis to liver and currently admitted with CVA on aspirin and Plavix had 2 blood dark lose with clot dorota colored bleed per rectum most likely secondary to Gi bleed with unknown source at this time. Upper vs Lower GI bleed no further bleeding since admission patient interested in blood transfusion for energy, try to get back home Hb is 5.9, will give two units continue Protonix CVA with R Sided Deficits and Significant Aphasia: embolic stroke Neurology following ASA 81 mg daily and Plavix 75 mg daily recommended but on hold due to bleeding ideally he should have anticoagulation but contraindicated with bleeding discussed home health with PT for recovery T2DM: - Hold oral antidiabetics at this time and cover with SSI - can add his oral meds back pending diet institution and oral intake - reports chronic anorexia which may be a continued issue given his CA CAD S/P NSTEMI and PCI x 2: Presents with Elevated Troponin likely demand ischemia with anemia echo with EF of 35%, euvolemic HTN: - All anti-hypertensives held at this time to allow for permissive HTN Metastatic Pancreatic CA on Hospice (Revoked at this time): - Fentanyl 37.5 mg daily (recently increased to this dose), Oxycodone PRN, and Ibuprofen PRN; Add Morphine IV when NPO - will try to get home on hospice with home health DVT SCD Code status DNR case management assistance with hospice on discharge Continued [facility] stay due to: multiple IV medications needed Discharge planning: uncertain
--- NOTE | 2017-06-23 16:58 | Palliative Care Progress Note ---
Palliative Care Progress Note Date of Service Jun 23, 2017. Subjective Events of weekend noted. Stopped by to see pt - asleep, not at bedside . Did not disturb pt - will f/u in am. Objective Vital Signs Date Time Temp Pulse Resp B/P (MAP) Pulse Ox O2 Delivery O2 Flow Rate FiO2 06/23/17 16:31 37.0 80 16 170/92 98 06/23/17 16:01 37.1 73 16 165/93 96 06/23/17 15:45 37.1 77 18 167/93 95 06/23/17 15:15 37.5 86 16 158/91 98 06/23/17 15:05 36.6 95 16 158/86 98 06/23/17 14:30 36.6 74 18 163/85 97 06/23/17 13:30 36.6 88 16 164/89 97 06/23/17 13:00 37.4 98 16 170/102 98 06/23/17 12:30 36.9 79 16 172/94 98 06/23/17 12:15 36.4 76 16 171/89 96 06/23/17 12:00 37.1 85 16 171/96 96 06/23/17 08:00 99 Room Air 06/23/17 00:00 Room Air Laboratory Results Last 24 Hours Test 06/22/17 21:50 06/23/17 05:33 Hemoglobin 6.0 g/dL 5.9 g/dL Hematocrit 17.8 % 18.1 % White Blood Count 16.72 K/uL Red Blood Count 1.98 M/uL Mean Corpuscular Volume 91.4 fL Mean Corpuscular Hemoglobin 29.8 pg Mean Corpuscular Hemoglobin Concent 32.6 g/dl Platelet Count 131 K/uL Mean Platelet Volume 9.6 fL Neutrophils (%) (Auto) 79.0 % Lymphocytes (%) (Auto) 10.9 % Monocytes (%) (Auto) 8.5 % Eosinophils (%) (Auto) 0.8 % Basophils (%) (Auto) 0.1 % Neutrophils # (Auto) 13.20 K/uL Lymphocytes # (Auto) 1.82 K/uL Monocytes # (Auto) 1.42 K/uL Eosinophils # (Auto) 0.14 K/uL Basophils # (Auto) 0.02 K/uL RDW Standard Deviation 55.4 fL RDW Coefficient of Variation 16.8 % Immature Granulocyte % (Auto) 0.7 % Immature Granulocyte # (Auto) 0.12 K/uL Nucleated RBC Absolute Count (auto) 0.07 K/uL Nucleated Red Blood Cells % 0.4 % Toxic Vacuolation 1+ Schistocytes 1+ Sodium Level 136 mmol/L Potassium Level 3.2 mmol/L Chloride Level 102 mmol/L Carbon Dioxide Level 23 mmol/L Anion Gap 11.0 mmol/L Blood Urea Nitrogen 17 mg/dl Creatinine 0.62 mg/dl Est Creatinine Clear Calc Drug Dose 106.6 ml/min Estimated GFR () 118.1 Estimated GFR (Non- 101.9 BUN/Creatinine Ratio 27.9 Random Glucose 210 mg/dl Calcium Level 7.6 mg/dl Assessment and Plan (1) Palliative care encounter (2) Pancreatic cancer metastasized to liver (3) Aphasia Status: Acute (4) CVA (cerebral vascular accident) Status: Acute (5) Gastrointestinal hemorrhage with melena Status: Acute Assessment & Plan: Pt declined transfusion (6) Cancer associated pain Status: Chronic Assessment & Plan: Controlled with Fentanyl patches and prn oxy Palliative Performance Scale: 30 % Continued [facility] stay due to: multiple IV medications needed Discharge planning: uncertain
[2017-06-24 00:14] VITALS: BP 153/81; PULSE 80; TEMP 36.6; O2SAT 98
[2017-06-24] MEDS: PANTOprazole INJ 40 MG in DEXTROSE 5% 100ML IV SCH ×5 (02:05→20:29)
[2017-06-24] MEDS: MoRPHine SULFATE 2 MG/ML CARP IV PRN ×3 (02:09→22:28)
[2017-06-24 06:36] LABS: CALCIUM 7.5 mg/dl (8.5-10.1); CREATININE 0.53 mg/dl (0.60-1.40); POTASSIUM 2.9 mmol/L (3.5-5.1)
[2017-06-24 06:50] LABS: HEMATOCRIT 25.9 % (42-52); HEMOGLOBIN 8.8 g/dL (14.0-18.0); MEAN CELL VOLUME 88.7 fL (80-100); MEAN CORPUSCULAR HEMOGLOBIN 30.1 pg (25-34); MEAN PLATELET VOLUME 10.3 fL (7.4-10.4); NUCLEATED RED BLOOD CELL ABS 0.09 K/uL (0-0); PLATELET COUNT 86 K/uL (130-400); RED CELL DISTRIBUTION WIDTH CV 17.4 % (11.5-14.5); RED CELL DISTRIBUTION WIDTH SD 54.1 fL (36.4-46.3); WHITE BLOOD COUNT 17.13 K/uL (4.8-10.8)
[2017-06-24 06:51] LABS: BASO % 0.1 %; BASO ABS # 0.02 K/uL (0-0.2); EOS ABS # 0.35 K/uL (0-0.5); IG# 0.08 K/uL (0.00-0.02); LYMPH % 8.3 %; LYMPH ABS # 1.43 K/uL (1.2-3.4); MONO % 9.3 %; MONO ABS # 1.59 K/uL (0.11-0.59); NEUT % 79.8 %; NEUT ABS # 13.66 K/uL (1.4-6.5)
[2017-06-24 07:56] VITALS: BP 178/97; PULSE 88; TEMP 36.8; O2SAT 96
[2017-06-24] MEDS: CHECK FENTANYL PATCH PLACEMENT SCH ×6 (08:20→23:26)
[2017-06-24] MEDS: FENTANYL PATCH REMOVE & WASTE SCH ×2 (08:21→08:22)
[2017-06-24] MEDS: FENTANYL 25 MCG/HR TDSY TD SCH (08:23)
[2017-06-24] MEDS: FENTANYL 12 MCG/HR TDSY TD SCH (08:23)
[2017-06-24] MEDS ORDERED: POTASSIUM CHLORIDE 20 MEQ TABCR PO ONE (09:30)
[2017-06-24] MEDS: OXYCODONE/ACETAMINOPHEN 5-325 TAB PO PRN ×2 (09:49→16:53)
[2017-06-24] MEDS ORDERED: NURSING VERBAL MED ORDER ONE (10:30)
--- NOTE | 2017-06-24 11:38 | Progress Note ---
Subjective Date of Service: Jun 24, 2017. Subjective Pt evaluation today including: conversation w/ patient, conversation w/ family , physical exam, lab review, conversation w/ peoplesoft financials consultant, review of inpatient medication list Pain: increased abdominal pain today PO Intake: poor Voiding: no voiding problems patient continues to have abdominal pain, weakness on the right long talk with patient's at the bedside, deciding on plan of care would need hospital bed at home, bedside commode she is concerned about taking care of him by herself, will re-order therapy to evaluate strength reviewed labs, Hb up to 8.8 today, K is 2.9, Cr stable discussed with Dr. Dunn with palliative care, trying to determine if he can have therapy and then go back on hospice Problem List Medical Problems: (1) Abnormal EKG Status: Acute (2) Aphasia Status: Acute (3) CVA (cerebral vascular accident) Status: Acute (4) Edema Status: Acute (5) Hyperglycemia Status: Acute (6) Metastasis from pancreatic cancer Status: Acute (7) Unstable angina Status: Acute Review of Systems Constitutional: + weakness, + fatigue Abdomen: + pain, + problem reported (poor appetite) Neurologic: + weakness (right leg and arm) All Other Systems: Reviewed and Negative Medications Current Inpatient Medications Medications (Trade) Dose Ordered Sig/[place] Route Start Time Stop Time Status Last Admin Dose Admin Acetaminophen (Tylenol Tab) 650 mg Q4H PRN PO 06/20/17 09:00 07/20/17 08:59 Al Hydrox/Mg Hydrox/Simethicone (Maalox Max Susp) 15 ml Q4H PRN PO 06/20/17 09:00 07/20/17 08:59 Future Hold Magnesium Hydroxide (Milk Of Magnesia Susp) 30 ml Q12H PRN PO 06/20/17 09:00 07/20/17 08:59 Ondansetron HCl (Zofran Inj) 4 mg Q6H PRN IV 06/20/17 09:00 07/20/17 08:59 Polyethylene (Miralax Powder Packet) 17 gm DAILY PRN PO 06/20/17 09:00 07/20/17 08:59 Insulin Aspart (novoLOG ASPART) SLIDING SCALE If C... ACHS SC 06/20/17 11:00 07/20/17 10:59 Future Hold 06/20/17 21:37 2 UNITS Glucose (Glucose 40% Gel) 15-30 GRAMS 15 GRAMS... UD PRN PO 06/20/17 09:00 07/20/17 08:59 Glucose (Glucose Chew Tab) 4-8 Tablets 4 Tabl... UD PRN PO 06/20/17 09:00 07/20/17 08:59 Dextrose (Dextrose 50% 50ML Syringe) 25-50ML OF 50% DW IV FOR... UD PRN IV 06/20/17 09:00 07/20/17 08:59 Glucagon (Glucagon Inj) 1 mg UD PRN SQ 06/20/17 09:00 07/20/17 08:59 Miscellaneous Information (Pharmacist Discharge Med Rec Consult) 1 ea UD PRN N/A 06/20/17 09:00 07/20/17 08:59 Aspirin (Ecotrin Tab) 81 mg DAILY PO 06/20/17 12:00 07/20/17 11:59 Future Hold Clopidogrel Bisulfate (plAVix TAB) 75 mg DAILY PO 06/20/17 12:00 07/20/17 11:59 Future Hold Colchicine (Colchicine Tab) 0.6 mg DAILY PRN PO 06/20/17 09:00 07/20/17 08:59 Ibuprofen (Motrin Tab) 800 mg BID PRN PO 06/20/17 09:00 07/20/17 08:59 Oxycodone/ Acetaminophen (Percocet 5-325mg Tab) 1 tab BID PRN PO 06/20/17 09:00 07/04/17 08:59 06/24/17 09:49 1 TAB Simvastatin (Zocor Tab) 40 mg QPM PO 06/20/17 21:00 07/20/17 20:59 Future Hold 06/20/17 21:36 40 MG Miscellaneous Information (Check Fentanyl Patch Placement) 1 ea QS N/A 06/20/17 16:00 07/20/17 15:59 06/24/17 08:20 1 EA Fentanyl (Duragesic Patch) 12 mcg Q3D@0900 TD 06/21/17 09:00 07/05/17 08:59 06/24/17 08:23 12 MCG Fentanyl (Duragesic Patch) 25 mcg Q3D@0900 TD 06/21/17 09:00 07/05/17 08:59 06/24/17 08:23 25 MCG Miscellaneous (Fentanyl Patch Remove & Waste) 1 ea Q3D@0859 N/A 06/21/17 08:59 07/21/17 08:58 06/24/17 08:21 1 EA Miscellaneous (Fentanyl Patch Remove & Waste) 1 ea Q3D@0859 N/A 06/21/17 08:59 07/21/17 08:58 06/24/17 08:22 1 EA Miscellaneous Information (Check Fentanyl Patch Placement) 1 ea QS N/A 06/21/17 00:00 07/21/17 00:00 06/24/17 08:20 1 EA Pantoprazole Sodium 40 mg/ Dextrose 100 ml @ 20 mls/hr Q5H IV 06/21/17 09:45 07/21/17 09:44 06/24/17 10:24 20 MLS/HR Sodium Chloride 1,000 ml @ 50 mls/hr Q20H IV 06/21/17 10:30 07/21/17 10:29 Future Hold 06/21/17 10:37 100 MLS/HR Morphine Sulfate (MoRPHine SULFATE INJ) 2 mg Q15M PRN IV 06/21/17 11:15 07/04/17 09:14 06/24/17 04:24 2 MG Lorazepam 1 mg/ Syringe 1 ml @ 1 mls/min Q8H PRN IV 06/21/17 17:00 07/21/17 16:59 06/22/17 20:45 1 MLS/MIN Lorazepam (Ativan Inj) 1 mg Q8H PRN IV 06/21/17 17:00 07/21/17 16:59 Heparin Sodium (Porcine) (Heparin 100 Unit/ml 5ml Flush) 5 ml PRN PRN IV 06/22/17 00:30 07/22/17 00:29 06/24/17 06:03 5 ML Potassium Chloride (Klor-Con Tab) 20 meq TID PO 06/24/17 14:00 07/24/17 13:59 Objective Vital Signs Date Time Temp Pulse Resp B/P (MAP) Pulse Ox O2 Delivery O2 Flow Rate FiO2 06/24/17 08:00 Room Air 06/24/17 07:56 36.8 88 18 178/97 (124) 96 Room Air 4/3/18 00:14 36.6 80 16 153/81 (105) 98 Room Air 06/24/17 00:00 Room Air 06/23/17 18:04 36.4 86 18 175/99 98 06/23/17 17:01 37.4 76 16 163/102 96 06/23/17 16:31 37.0 80 16 170/92 98 06/23/17 16:10 Room Air 06/23/17 16:01 37.1 73 16 165/93 96 06/23/17 15:45 37.1 77 18 167/93 95 06/23/17 15:15 37.5 86 16 158/91 98 06/23/17 15:05 36.6 95 16 158/86 98 06/23/17 14:30 36.6 74 18 163/85 97 06/23/17 13:30 36.6 88 16 164/89 97 06/23/17 13:00 37.4 98 16 170/102 98 06/23/17 12:30 36.9 79 16 172/94 98 06/23/17 12:15 36.4 76 16 171/89 96 06/23/17 12:00 37.1 85 16 171/96 96 Physical Exam General Appearance: WD/WN, no apparent distress Eyes: normal inspection, EOMI, sclerae normal ENT: normal ENT inspection, hearing grossly normal, pharynx normal Neck: supple, no adenopathy, no JVD, trachea midline Respiratory/Chest: chest non-tender, lungs clear, normal breath sounds, no respiratory distress, no accessory muscle use Cardiovascular: regular rate, rhythm, no edema, no gallop, no JVD, no murmur Abdomen: normal bowel sounds, soft, no organomegaly, + tenderness (epigastric) Extremities: normal range of motion, non-tender, normal inspection, no pedal edema, no calf tenderness, pelvis stable Neurologic/Psychiatric: equine dentist II-XII nml as tested, alert, normal mood/affect, oriented x 3, + motor weakness (right leg is 4+ out of 5, right hand is 4 out of 5) Skin: normal color, warm/dry, no rash Laboratory Results Last 24 Hours Test 06/24/17 05:33 06/24/17 07:35 White Blood Count 17.13 K/uL Red Blood Count 2.92 M/uL Hemoglobin 8.8 g/dL Hematocrit 25.9 % Mean Corpuscular Volume 88.7 fL Mean Corpuscular Hemoglobin 30.1 pg Mean Corpuscular Hemoglobin Concent 34.0 g/dl Platelet Count 86 K/uL Mean Platelet Volume 10.3 fL Neutrophils (%) (Auto) 79.8 % Lymphocytes (%) (Auto) 8.3 % Monocytes (%) (Auto) 9.3 % Eosinophils (%) (Auto) 2.0 % Basophils (%) (Auto) 0.1 % Neutrophils # (Auto) 13.66 K/uL Lymphocytes # (Auto) 1.43 K/uL Monocytes # (Auto) 1.59 K/uL Eosinophils # (Auto) 0.35 K/uL Basophils # (Auto) 0.02 K/uL RDW Standard Deviation 54.1 fL RDW Coefficient of Variation 17.4 % Immature Granulocyte % (Auto) 0.5 % Immature Granulocyte # (Auto) 0.08 K/uL Nucleated RBC Absolute Count (auto) 0.09 K/uL Nucleated Red Blood Cells % 0.5 % Toxic Vacuolation 1+ Platelet Estimate DECREASED Schistocytes 1+ Sodium Level 135 mmol/L Potassium Level 2.9 mmol/L Chloride Level 102 mmol/L Carbon Dioxide Level 25 mmol/L Anion Gap 8.0 mmol/L Blood Urea Nitrogen 12 mg/dl Creatinine 0.53 mg/dl Est Creatinine Clear Calc Drug Dose 124.7 ml/min Estimated GFR () 126.0 Estimated GFR (Non- 108.7 BUN/Creatinine Ratio 21.6 Random Glucose 203 mg/dl Calcium Level 7.5 mg/dl Bedside Glucose 237 mg/dl Assessment and Plan 67 year old male with past medical history of pancreatic cancer with metastasis to liver and currently admitted with CVA on aspirin and Plavix had 2 blood dark lose with clot dorota colored bleed per rectum most likely secondary to Gi bleed with unknown source at this time. Upper vs Lower GI bleed no further bleeding since admission patient interested in blood transfusion for energy, try to get back home Hb up to 8.8 today after 2 units transfused yesterday for a Hb of 5.9 continue Protonix no further transfusions planned, continues to be free of any signs of bleeding CVA with R Sided Deficits and Significant Aphasia: embolic stroke Neurology following ASA 81 mg daily and Plavix 75 mg daily recommended but on hold due to bleeding ideally he should have anticoagulation but contraindicated with bleeding strength improving in right arm and leg re-order OT to see if he can stand a pivot for bedside commode at home concerned about taking care of him Hypokalemia: give 40mEq this AM, start on 20mEq TID this afternoon T2DM: - Hold oral antidiabetics at this time and cover with SSI - can add his oral meds back pending diet institution and oral intake - reports chronic anorexia which may be a continued issue given his CA likely going to hold diabetic medications on discharge CAD S/P NSTEMI and PCI x 2: Presents with Elevated Troponin likely demand ischemia of myocardium due to anemia echo with EF of 35%, euvolemic HTN: - All anti-hypertensives held at this time to allow for permissive HTN Metastatic Pancreatic CA on Hospice prior to admission - Fentanyl 37.5 mg daily (recently increased to this dose), Oxycodone PRN, and Ibuprofen PRN; Add Morphine IV when NPO - will try to get home on hospice with home health - may need to remain off home health for a few weeks if they want therapy, then resume Hospice - will provide with pain control for one month while situation is figured out DVT SCD Code status DNR case management assistance with hospice on discharge Continued [facility] stay due to: multiple IV medications needed Discharge planning: uncertain
[2017-06-24] MEDS: POTASSIUM CHLORIDE 20 MEQ TABCR PO SCH ×2 (12:55→20:29)
[2017-06-24 15:03] VITALS: BP 147/91; PULSE 86; TEMP 37.1; O2SAT 98
--- NOTE | 2017-06-24 15:29 | Palliative Care Progress Note ---
Palliative Care Progress Note Date of Service Jun 24, 2017. Subjective Pt evaluation today including: conversation w/ patient, physical exam, chart review, lab review, conversation w/ lead sales consultant Pain: Patient complaint of right upper quadrant pain, just received as needed oxy PO Intake: Good Voiding: no voiding problems Met with patient's yesterday after seeing patient briefly, was able to discuss with her further plans and goals of care. Patient seen today alone in his room, was not at bedside. His goals are still to return home, may agree with some short-term physical therapy in the home for strengthening Review of Systems Constitutional: No fever, No chills Eyes: No worsening of vision ENT: No hearing loss Respiratory: No cough Cardiac: No chest pain Abdomen: + pain (Right upper quadrant, good response to as needed oxycodone) Musculoskeletal: + problem reported (Right upper extremity weakness greater than right lower extremity) Male : No dysuria Neurologic: No memory loss Psychiatric: No anxiety Skin: No rash, No new/changing skin lesions Objective Vital Signs Date Time Temp Pulse Resp B/P (MAP) Pulse Ox O2 Delivery O2 Flow Rate FiO2 06/24/17 15:03 37.1 86 18 147/91 (109) 98 Room Air 06/24/17 08:00 Room Air 06/24/17 07:56 36.8 88 18 178/97 (124) 96 Room Air 06/24/17 00:14 36.6 80 16 153/81 (105) 98 Room Air 06/24/17 00:00 Room Air 06/23/17 18:04 36.4 86 18 175/99 98 06/23/17 17:01 37.4 76 16 163/102 96 06/23/17 16:31 37.0 80 16 170/92 98 06/23/17 16:10 Room Air 06/23/17 16:01 37.1 73 16 165/93 96 06/23/17 15:45 37.1 77 18 167/93 95 Physical Exam General Appearance: no apparent distress Eyes: EOMI ENT: hearing grossly normal, + pertinent finding (Right sided facial droop unchanged) Neck: supple Respiratory/Chest: no respiratory distress Cardiovascular: regular rate, rhythm Abdomen: soft, + tenderness (Mild tenderness in the epigastric and right upper quadrant area to palpation) Extremities: + pertinent finding (Lower extremities with equal strength, right upper extremity chassis inspector 4/5, left upper extremity chassis inspector 5/5) Neurologic/Psychiatric: alert Skin: warm/dry Laboratory Results Last 24 Hours Test 06/24/17 05:33 06/24/17 07:35 06/24/17 11:53 White Blood Count 17.13 K/uL Red Blood Count 2.92 M/uL Hemoglobin 8.8 g/dL Hematocrit 25.9 % Mean Corpuscular Volume 88.7 fL Mean Corpuscular Hemoglobin 30.1 pg Mean Corpuscular Hemoglobin Concent 34.0 g/dl Platelet Count 86 K/uL Mean Platelet Volume 10.3 fL Neutrophils (%) (Auto) 79.8 % Lymphocytes (%) (Auto) 8.3 % Monocytes (%) (Auto) 9.3 % Eosinophils (%) (Auto) 2.0 % Basophils (%) (Auto) 0.1 % Neutrophils # (Auto) 13.66 K/uL Lymphocytes # (Auto) 1.43 K/uL Monocytes # (Auto) 1.59 K/uL Eosinophils # (Auto) 0.35 K/uL Basophils # (Auto) 0.02 K/uL RDW Standard Deviation 54.1 fL RDW Coefficient of Variation 17.4 % Immature Granulocyte % (Auto) 0.5 % Immature Granulocyte # (Auto) 0.08 K/uL Nucleated RBC Absolute Count (auto) 0.09 K/uL Nucleated Red Blood Cells % 0.5 % Toxic Vacuolation 1+ Platelet Estimate DECREASED Schistocytes 1+ Sodium Level 135 mmol/L Potassium Level 2.9 mmol/L Chloride Level 102 mmol/L Carbon Dioxide Level 25 mmol/L Anion Gap 8.0 mmol/L Blood Urea Nitrogen 12 mg/dl Creatinine 0.53 mg/dl Est Creatinine Clear Calc Drug Dose 124.7 ml/min Estimated GFR () 126.0 Estimated GFR (Non- 108.7 BUN/Creatinine Ratio 21.6 Random Glucose 203 mg/dl Calcium Level 7.5 mg/dl Bedside Glucose 237 mg/dl 228 mg/dl Assessment and Plan (1) Palliative care encounter Assessment & Plan: Patient's goal is to return home, with continued pain control with fentanyl patches and as needed oxycodone. Patient with like to be as independent as possible, case management working on whether or not patient can receive home PT/OT. (2) Pancreatic cancer metastasized to liver Status: Chronic Assessment & Plan: No further treatments, pain well controlled with fentanyl patches and as needed oxycodone (3) Aphasia Status: Acute Assessment & Plan: Patient able to respond to yes and no questions, able to make his needs known (4) CVA (cerebral vascular accident) Status: Acute Assessment & Plan: Continues to have right facial droop and 4/5 weakness right upper extremity (5) Gastrointestinal hemorrhage with melena Status: Acute Assessment & Plan: No further bleeding, patient was transfused from a hemoglobin of 5.9 up to 8.8 today, however his platelet count has dropped to 86K. (6) Cancer associated pain Status: Chronic Assessment & Plan: Patient's pain has been better controlled on the 37 mcg of fentanyl patch with occasional as needed oxycodone Palliative Performance Scale: 30 % (PT/OT eval, hopefully patient will be able to stand and pivot giving him a PPS of 40%) Continued [facility] stay due to: ambulation difficulties Discharge planning: uncertain (Home with home OT/PT, versus home with hospice) Counseling and Coordination Total time spent 35 minutes with greater than 50% of the time discussing goals of care and plan of care with patient
[2017-06-24 23:23] VITALS: BP 164/91; PULSE 92; TEMP 36.9; O2SAT 94
[2017-06-25 00:30] LABS: ANTICARDIOLIPID AB IGA <11 APL (< = 11)
[2017-06-25] MEDS: PANTOprazole INJ 40 MG in DEXTROSE 5% 100ML IV SCH ×3 (01:12→11:50)
[2017-06-25] MEDS: MoRPHine SULFATE 2 MG/ML CARP IV PRN (03:04)
[2017-06-25 07:18] VITALS: BP 157/89; PULSE 79; TEMP 36.9; O2SAT 96
[2017-06-25] MEDS: CHECK FENTANYL PATCH PLACEMENT SCH ×3 (07:43→16:02)
[2017-06-25] MEDS: POTASSIUM CHLORIDE 20 MEQ TABCR PO SCH ×3 (07:44→20:05)
[2017-06-25] MEDS ORDERED: FENTANYL PATCH REMOVE & WASTE SCH ×2 (08:59→12:59)
[2017-06-25] MEDS ORDERED: FENTANYL 50 MCG/HR TDSY TD SCH (13:00)
[2017-06-25] MEDS ORDERED: MoRPHine SULFATE 5 MG/0.25 ML UDP PO PRN (14:45)
--- NOTE | 2017-06-25 14:49 | Progress Note ---
Subjective Date of Service: Jun 25, 2017. Subjective Pt evaluation today including: conversation w/ patient, conversation w/ family , physical exam, conversation w/ databases software consultant, review of inpatient medication list Pain: better today PO Intake: improving Voiding: no voiding problems patient had a lot of pain last night in the middle of the night difficult to control he was able to get up today with OT and PT, did well, was minimal assist discussed plan with CM, go home with therapy, transition to hospice hospice will arrange for hospital bed, commode, walker long talk with patient and his , discussed plan in detail all questions answered they understand that we will get him home once hospital bed delivered discussed increasing Fentanyl patch to 50mcg, he agreed Problem List Medical Problems: (1) Abnormal EKG Status: Acute (2) Aphasia Status: Acute (3) CVA (cerebral vascular accident) Status: Acute (4) Edema Status: Acute (5) Hyperglycemia Status: Acute (6) Metastasis from pancreatic cancer Status: Acute (7) Unstable angina Status: Acute Review of Systems Constitutional: + weakness, + fatigue Abdomen: + pain Musculoskeletal: + joint pain All Other Systems: Reviewed and Negative Medications Current Inpatient Medications Medications (Trade) Dose Ordered Sig/[place] Route Start Time Stop Time Status Last Admin Dose Admin Acetaminophen (Tylenol Tab) 650 mg Q4H PRN PO 06/20/17 09:00 07/20/17 08:59 Al Hydrox/Mg Hydrox/Simethicone (Maalox Max Susp) 15 ml Q4H PRN PO 06/20/17 09:00 07/20/17 08:59 Future Hold Magnesium Hydroxide (Milk Of Magnesia Susp) 30 ml Q12H PRN PO 06/20/17 09:00 07/20/17 08:59 06/25/17 07:44 30 ML Ondansetron HCl (Zofran Inj) 4 mg Q6H PRN IV 06/20/17 09:00 07/20/17 08:59 Polyethylene (Miralax Powder Packet) 17 gm DAILY PRN PO 06/20/17 09:00 07/20/17 08:59 Insulin Aspart (novoLOG ASPART) SLIDING SCALE If C... ACHS SC 06/20/17 11:00 07/20/17 10:59 Future Hold 06/20/17 21:37 2 UNITS Glucose (Glucose 40% Gel) 15-30 GRAMS 15 GRAMS... UD PRN PO 06/20/17 09:00 07/20/17 08:59 Glucose (Glucose Chew Tab) 4-8 Tablets 4 Tabl... UD PRN PO 06/20/17 09:00 07/20/17 08:59 Dextrose (Dextrose 50% 50ML Syringe) 25-50ML OF 50% DW IV FOR... UD PRN IV 06/20/17 09:00 07/20/17 08:59 Glucagon (Glucagon Inj) 1 mg UD PRN SQ 06/20/17 09:00 07/20/17 08:59 Miscellaneous Information (Pharmacist Discharge Med Rec Consult) 1 ea UD PRN N/A 06/20/17 09:00 07/20/17 08:59 Aspirin (Ecotrin Tab) 81 mg DAILY PO 06/20/17 12:00 07/20/17 11:59 Future Hold Clopidogrel Bisulfate (plAVix TAB) 75 mg DAILY PO 06/20/17 12:00 07/20/17 11:59 Future Hold Colchicine (Colchicine Tab) 0.6 mg DAILY PRN PO 06/20/17 09:00 07/20/17 08:59 Ibuprofen (Motrin Tab) 800 mg BID PRN PO 06/20/17 09:00 07/20/17 08:59 06/25/17 03:22 800 MG Oxycodone/ Acetaminophen (Percocet 5-325mg Tab) 1 tab BID PRN PO 06/20/17 09:00 07/04/17 08:59 06/24/17 16:53 1 TAB Simvastatin (Zocor Tab) 40 mg QPM PO 06/20/17 21:00 07/20/17 20:59 Future Hold 06/20/17 21:36 40 MG Miscellaneous (Fentanyl Patch Remove & Waste) 1 ea Q3D@0859 N/A 06/21/17 08:59 07/21/17 08:58 06/24/17 08:21 1 EA Miscellaneous (Fentanyl Patch Remove & Waste) 1 ea Q3D@0859 N/A 06/21/17 08:59 07/21/17 08:58 06/24/17 08:22 1 EA Miscellaneous Information (Check Fentanyl Patch Placement) 1 ea QS N/A 06/21/17 00:00 07/21/17 00:00 06/25/17 07:43 1 EA Pantoprazole Sodium 40 mg/ Dextrose 100 ml @ 20 mls/hr Q5H IV 06/21/17 09:45 07/21/17 09:44 06/25/17 11:50 20 MLS/HR Sodium Chloride 1,000 ml @ 50 mls/hr Q20H IV 06/21/17 10:30 07/21/17 10:29 Future Hold 06/21/17 10:37 100 MLS/HR Morphine Sulfate (MoRPHine SULFATE INJ) 2 mg Q15M PRN IV 06/21/17 11:15 07/04/17 09:14 06/25/17 03:04 2 MG Lorazepam 1 mg/ Syringe 1 ml @ 1 mls/min Q8H PRN IV 06/21/17 17:00 07/21/17 16:59 06/22/17 20:45 1 MLS/MIN Lorazepam (Ativan Inj) 1 mg Q8H PRN IV 06/21/17 17:00 07/21/17 16:59 Heparin Sodium (Porcine) (Heparin 100 Unit/ml 5ml Flush) 5 ml PRN PRN IV 06/22/17 00:30 07/22/17 00:29 06/24/17 06:03 5 ML Potassium Chloride (Klor-Con Tab) 20 meq TID PO 06/24/17 14:00 07/24/17 13:59 06/25/17 13:24 20 MEQ Fentanyl (Duragesic Patch) 50 mcg Q3D@1300 TD 06/25/17 13:00 07/09/17 12:59 06/25/17 13:24 50 MCG Miscellaneous (Fentanyl Patch Remove & Waste) 1 ea Q3D@1259 N/A 06/25/17 12:59 07/25/17 12:58 06/25/17 13:25 1 EA Miscellaneous Information (Check Fentanyl Patch Placement) 1 ea QS N/A 06/25/17 16:00 07/25/17 15:59 Objective Vital Signs Date Time Temp Pulse Resp B/P (MAP) Pulse Ox O2 Delivery O2 Flow Rate FiO2 06/25/17 08:00 Room Air 06/25/17 07:18 36.9 79 17 157/89 (111) 96 Room Air 06/25/17 00:00 Room Air 06/24/17 23:23 36.9 92 20 164/91 (115) 94 Room Air 06/24/17 16:00 Room Air 06/24/17 15:03 37.1 86 18 147/91 (109) 98 Room Air Physical Exam General Appearance: no apparent distress, + thin Eyes: normal inspection, EOMI, sclerae normal ENT: normal ENT inspection, hearing grossly normal, pharynx normal Neck: supple, no adenopathy, no JVD, trachea midline Respiratory/Chest: chest non-tender, lungs clear, normal breath sounds, no respiratory distress, no accessory muscle use Cardiovascular: regular rate, rhythm, no edema, no gallop, no JVD, no murmur Abdomen: normal bowel sounds, non tender, soft, no organomegaly Extremities: normal range of motion, non-tender, normal inspection, no pedal edema, no calf tenderness, pelvis stable Neurologic/Psychiatric: electrical assemblies supervisor II-XII nml as tested, alert, oriented x 3, + abnormal gait, + motor weakness, + depressed affect Skin: normal color, warm/dry, no rash Lymphatic: no adenopathy Laboratory Results Last 24 Hours Test 06/24/17 16:35 06/25/17 07:40 Bedside Glucose 257 mg/dl 230 mg/dl Assessment and Plan 67 year old male with past medical history of pancreatic cancer with metastasis to liver and currently admitted with CVA on aspirin and Plavix had 2 blood dark lose with clot dorota colored bleed per rectum most likely secondary to Gi bleed with unknown source at this time. Upper vs Lower GI bleed no further bleeding since admission patient interested in blood transfusion for energy, try to get back home Hb up to 8.8 on 06/24 after 2 units transfused, no labs today, will check H/H tomorrow continue Protonix, change to PO no further transfusions planned, continues to be free of any signs of bleeding CVA with R Sided Deficits and Significant Aphasia: embolic stroke Neurology consulted ASA 81 mg daily and Plavix 75 mg daily recommended but on hold due to bleeding ideally he should have anticoagulation but contraindicated with bleeding strength improving in right arm and leg, aphasia improving was minimal assist today with therapy, safe to go home Hypokalemia: was 2.9 yesterday, continue BID supplementation, will repeat tomorrow T2DM: - Hold oral antidiabetics at this time and cover with SSI - can add his oral meds back pending diet institution and oral intake - reports chronic anorexia which may be a continued issue given his CA likely going to hold diabetic medications on discharge CAD S/P NSTEMI and PCI x 2: Presents with Elevated Troponin likely demand ischemia of myocardium due to anemia echo with EF of 35%, euvolemic HTN: - All anti-hypertensives held at this time to allow for permissive HTN Metastatic Pancreatic CA on Hospice prior to admission - increased pain today and last night, will increase Fentanyl to 50mcg, increase percocet to q4H, add Roxanol 10mg q2 PRN - will try to get home on hospice with home health - awaiting hospital bed delivery DVT SCD Code status DNR case management assistance with hospice on discharge, hopeful for tomorrow if bed can be delivered Continued [facility] stay due to: ambulation difficulties Discharge planning: uncertain (Home with home OT/PT, versus home with hospice)
[2017-06-25] MEDS: OXYCODONE/ACETAMINOPHEN 5-325 TAB PO PRN ×2 (15:00→20:04)
[2017-06-25 15:33] VITALS: BP 163/95; PULSE 74; TEMP 36.9; O2SAT 97
[2017-06-25] MEDS ORDERED: CHECK FENTANYL PATCH PLACEMENT SCH (16:00)
[2017-06-26] MEDS: CHECK FENTANYL PATCH PLACEMENT SCH ×3 (00:04→15:07)
[2017-06-26] MEDS: OXYCODONE/ACETAMINOPHEN 5-325 TAB PO PRN ×4 (02:34→15:45)
[2017-06-26 05:55] LABS: HEMATOCRIT 27.5 % (42-52); HEMOGLOBIN 9.1 g/dL (14.0-18.0)
[2017-06-26 06:40] LABS: CALCIUM 7.6 mg/dl (8.5-10.1); CREATININE 0.63 mg/dl (0.60-1.40); POTASSIUM 4.1 mmol/L (3.5-5.1)
[2017-06-26 07:57] VITALS: BP 166/113; PULSE 99; TEMP 36.6; O2SAT 96
[2017-06-26] MEDS: POTASSIUM CHLORIDE 20 MEQ TABCR PO SCH ×2 (08:36→14:10)
[2017-06-26] MEDS ORDERED: ATV1 PO (10:36)
[2017-06-26] MEDS ORDERED: RXNS10 PO (10:36)
[2017-06-26] MEDS ORDERED: OXYC-57 PO (10:36)
[2017-06-26] MEDS ORDERED: DRGTP50 TD (10:36)
[2017-06-26] MEDS ORDERED: GLIP10TA10 PO (10:40)
--- NOTE | 2017-06-26 11:08 | Discharge Instructions ---
Discharge Instructions Date of Service Jun 26, 2017. Admission Reason for Admission: CVA Discharge Discharge Diagnosis / Problem: Left sided stroke, GI bleed, pancreatic cancer Discharge Goals Goal(s): Decrease discomfort, Specific goals (comfort, palliative care) Activity Recommendations Activity Limitations: per Instructions/Follow-up section Driving or Machine Use: no driving . Instructions / Follow-Up Instructions / Follow-Up Medications: medications are intended to keep you comfortable, I've also included medications to prevent further stroke - FENTANYL PATCH: increased to 50mcg - PERCOCET: can take every 4 hours as needed for pain - MORPHINE SULFATE: can also use for pain as needed, can take for shortness of breath if you have it - ATIVAN: take as needed for anxiety - GLIPIZIDE: changed to once a day from twice a day since you are not eating a lot Stroke: continue to take Zocor to stabilize plaques and take blood pressure medications aspirin and Plavix have been stopped because of gastrointestinal bleeding GI bleed: stable at this time, may continue to see some dark stools hemoglobin is 9.1 today Pancreatic cancer: main goal is to control pain Fentanyl patch, morphine and Percocet prescribed, use as needed eat what you can, use protein shakes if you cannot eat solid food Fentanyl patch is changed every 3 days Percocet is every 4 hours as needed, but if it is controlling pain you can take it scheduled Morphine is 10mg in 0.5 milliliters, if 0.5 milliliters is not enough, call hospice for directions POLST form: completed, only return to hospital if pain cannot be controlled FOLLOW UP - home hospice Risk Factors for Stroke: You can reduce your chances of stroke by working with your medical provider to adopt a healthy lifestyle. Some specific ways to lower your chance of stroke are: * If you are a smoker, now is the time to stop smoking cigarettes * If you are diabetic, improve the control of your blood sugars * Avoid excessive amounts of alcohol * Control high blood pressure * Lose weight if you are overweight * Be sure to lead an active lifestyle * Eat a healthy diet low in salt, cholesterol and fat You should know about other risk factors for stroke that you are unable to control. These include: * Age 55 years or older * Male gender * Certain racial groups: , or / * Family History of Stroke, Mini stroke or Heart Attack * Sickle Cell Disease Follow Up: It is important for you to keep your follow up appointments with your medical provider. Current Hospital Diet Patient's current hospital diet: AHA Diet (Heart Healthy), Diabetes Type 2 Diet Discharge Diet Recommended Diet: Regular Diet Pending Studies Studies pending at discharge: no Laboratory Results Hemoglobin A1c Test 06/21/17 06:17 Range/Units Estimated Average Glucose 120 mg/dl Hemoglobin A1c 5.8 H 4.5-5.6 % Lipid Panel Test 06/21/17 06:17 Range/Units Triglycerides Level 89 0-150 mg/dl Cholesterol Level 71 0-200 mg/dl HDL Cholesterol 13 mg/dl Cholesterol/HDL Ratio 5.5 LDL Cholesterol, Calculated 40 mg/dl Medical Emergencies . Who to Call and When: Medical Emergencies: Call 911 immediately if you experience any of the following warning signs and symptoms of Stroke: * Sudden numbness or weakness of the face, arm or leg, especially on one side of the body * Sudden confusion, trouble speaking or understanding * Sudden trouble seeing in one or both eyes * Sudden trouble walking, dizziness, loss of balance or coordination * Sudden severe headache with no cause Do not delay calling 911 if you experience any warning signs or symptoms of a stroke. Delay in seeking medical attention may affect what treatments can be given to you. . Non-Emergent Contact Non-Emergency issues call your: Primary Care Provider Call Non-Emergent contact if: you have any medication questions . . "Provider Documentation" section prepared by Marvin Pizano. . Stroke Core Measures Reason no t-PA for Stroke: Treatment provided - N/A Reason no antithrom by day 2: Contraindicated (GI bleed) Reason no antithrom at D/C: Contraindicated (GI bleed) Reason no statin at D/C: Treatment provided - N/A Reason no anticoag w/a fib: Treatment not indicated [place] Drug Monitoring Program Search Results: no issues identified
[2017-06-26 11:24] VITALS: BP 166/113; PULSE 99; TEMP 36.6; O2SAT 96
--- NOTE | 2017-06-27 07:58 | Discharge Summary ---
Discharge Summary Date of Service Jun 26, 2017. Discharge Summary Admission Date: Jun 20, 2017 at 08:56 Discharge Date: Jun 26, 2017 Discharge Disposition: Home with services (hospice) Principal Diagnosis: Acute left sided ischemic CVA Problems/Secondary Diagnoses: GI bleed acute blood loss anemia metastatic pancreatic cancer chronic pain due to malignancy CAD with h/o NSTEMI DM type II Immunizations: Have You Had Influenza Vaccine: Unknown History of Tetanus Vaccine?: Unknown History of Pneumococcal: Unknown History of Hepatitis B Vaccine: Unknown Procedures: blood transfusion, two units Consultations: Palliative care Neurology Gastroenterology Medication Reconciliation New Medications: Lorazepam (Lorazepam) 1 Mg Tab 1 MG PO Q12 PRN for Anxiety/Agitation, #20 TABS 0 Refills Fentanyl (Fentanyl) 50 Mcg Tdsy 50 MCG TD Q3D@1300, #10 PATCH 0 Refills Morphine Sulfate (Morphine Sulfate) 10 Mg/0.5 Ml Soln 10 MG PO Q2H PRN for Pain, #120 ML 0 Refills Oxycodone/Acetaminophen 5MG/325MG (Percocet 5MG/325MG) Tab 1 TAB PO Q4 PRN for Pain, #60 TAB 0 Refills PAIN Changed Medications: Glipizide (Glipizide) 10 Mg Tab 10 MG PO DAILY, #30 TABS 1 Refill (Changed from: BID; Refills: ) Continued Medications: Amlodipine (Norvasc) 5 Mg Tab 5 MG PO QPM, TAB Carvedilol (Coreg) 25 Mg Tab 25 MG PO BID Colchicine (Colchicine) 0.6 Mg Tab 0.6 MG PO DAILY PRN for GOUT, TAB Simvastatin (Zocor) 40 Mg Tab 40 MG PO QPM, TAB Discontinued Medications: Aspirin (Aspirin Ec) 81 Mg Tab 81 MG PO DAILY Clopidogrel (Plavix) 75 Mg Tab 75 MG PO DAILY, TAB Fentanyl (Fentanyl) 37.5 Mcg/Hr Dis 1 PATCH TD [id number] Ibuprofen (Motrin) 800 Mg Tab 800 MG PO BID PRN for Pain, TAB Oxycodone/Acetaminophen 5MG/325MG (Percocet 5MG/325MG) Tab 1 TAB PO BID PRN for Pain for 30 Days, #60 TAB PAIN Discharge Exam Patient's pain was controlled slightly better on increased dose of Fentanyl patch and Percocet. Stated that the Roxanol was not helping much, explained that dose could be increased as needed, hospice will help. Completed POLST form with patient and his . Stated that he did not want to return to the hospital, only if his pain was not controlled at home. Review of Systems: Constitutional: + weakness, + fatigue, No fever, No chills, No sweats, No weight loss, No problem reported Eyes: No worsening of vision, No eye pain, No redness, No discharge, No diplopia, No problem reported ENT: No hearing loss, No unusual epistaxis, No nasal symptoms, No sore throat, No tinnitus, No dental problems, No trouble swallowing, No problem reported Respiratory: No cough, No sputum, No wheezing, No shortness of breath, No dyspnea on exertion, No dyspnea at rest, No hemoptysis, No problem reported Cardiovascular: No chest pain, No orthopnea, No PND, No edema, No claudication, No palpitations, No problem reported Abdomen: + pain (epigastric), + problem reported (poor appetite), No nausea , No vomiting, No diarrhea, No constipation, No GI bleeding Musculoskeletal: No joint pain, No muscle pain, No swelling, No calf pain, No problem reported Genitourinary - Male: No hematuria, No dysuria, No urinary frequency, No urinary urgency Neurologic: No memory loss, No paralysis, No weakness, No numbness/tingling , No vertigo, No balance problems, No problem reported Psychiatric: No depression symptoms, No anhedonism, No anxiety, No insomnia , No substance abuse, No problem reported Endocrine: No fatigue, No excessive thirst, No excessive urination, No problem reported Hematologic / Lymphatic: No abnormal bleeding/bruising, No clotting problems , No swollen lymph nodes, No night sweats, No problem reported Integumentary: No rash, No itch, No new/changing skin lesions, No color change, No bleeding, No problem reported Physical Exam: General Appearance: WD/WN, no apparent distress Eyes: normal inspection, EOMI, sclerae normal ENT: normal ENT inspection, hearing grossly normal, pharynx normal Neck: supple, no adenopathy, no JVD, trachea midline Respiratory/Chest: chest non-tender, lungs clear, normal breath sounds, no respiratory distress, no accessory muscle use Cardiovascular: regular rate, rhythm, no edema, no gallop, no JVD, no murmur , normal peripheral pulses Abdomen / GI: normal bowel sounds, non tender, soft, no organomegaly Extremities: normal inspection, no calf tenderness, normal capillary refill , no pedal edema, normal range of motion, pelvis stable Neurologic/Psychiatric: assembler watch train II-XII nml as tested, alert, normal reflexes, oriented x 3, + motor weakness (generalized), + depressed affect Skin: normal color, warm/dry, no rash Hospital Course 67 year old male with past medical history of pancreatic cancer with metastasis to liver and currently admitted with CVA on aspirin and Plavix had 2 blood dark lose with clot dorota colored bleed per rectum most likely secondary to Gi bleed with unknown source at this time. Upper vs Lower GI bleed no further bleeding since admission patient interested in blood transfusion for energy, try to get back home Hb up to 9.1 on 06/26 after 2 units transfused on 06/24 continue Protonix, change to PO no further transfusions planned, continues to be free of any signs of bleeding CVA with R Sided Deficits and Significant Aphasia: embolic stroke Neurology consulted ASA 81 mg daily and Plavix 75 mg daily recommended but on hold due to bleeding, no plans for antiplatelets on discharge ideally he should have anticoagulation but contraindicated with bleeding strength improving in right arm and leg, aphasia improving was minimal assist with therapy, safe to go home set up with hospital bed, walker and bedside commode hospice can provide some therapy, but no true physical therapy Hypokalemia: resolved with supplementation T2DM: - will resume Glipizide at 10mg daily instead of BID, diabetic diet, still not eating great CAD S/P NSTEMI and PCI x 2: Presents with Elevated Troponin likely demand ischemia of myocardium due to anemia echo with EF of 35%, euvolemic holding on aspirin and platelets due to bleeding HTN: - continue Coreg and Norvasc Metastatic Pancreatic CA on Hospice prior to admission - increased pain today and last night, will increase Fentanyl to 50mcg, increase percocet to q4H, add Roxanol 10mg q2 PRN - d/c to home on hospice - POLST completed, DNR, comfort only, no antibiotics, no tube feeds only return to hospital if pain cannot be controlled as outpatient Total Time Spent: Greater than 30 minutes This includes examination of the patient, discharge planning, medication reconciliation, and communication with other providers. Discharge Instructions Please refer to the electronic Patient Visit Report (Discharge Instructions) for additional information. Follow-Up home hospice Additional Copies To Sara Justice,
== END 2017-06-26 17:45 | disposition hospice, home (50) | DRG 65 ==
LOC: EDBD 06:44 → EDUNIT# 06:44 → C.EDA 06:52 → C.2T 08:56 → ENRESERV 09:37 → C.MSICU 06-21 09:25 → EDBEDREQ 06-21 11:16 → ENRESERV 06-21 11:38 → C.MS2W 06-21 12:43
PROVIDERS: ADMIT Internal Medicine Sports Medicine; ATTEND Internal Medicine
DX: I63.40 Cerebral infarction due to embolism of unspecified cerebral artery (principal); K92.2 Gastrointestinal hemorrhage, unspecified; Z51.5 Encounter for palliative care; C25.9 Malignant neoplasm of pancreas, unspecified; C78.7 Secondary malignant neoplasm of liver and intrahepatic bile duct; D62 Acute posthemorrhagic anemia; I24.8 Other forms of acute ischemic heart disease; G81.91 Hemiplegia, unspecified affecting right dominant side; R47.01 Aphasia; E11.9 Type 2 diabetes mellitus without complications; I25.10 Atherosclerotic heart disease of native coronary artery without angina pectoris; I25.2 Old myocardial infarction; Z95.818 Presence of other cardiac implants and grafts; I10 Essential (primary) hypertension; G89.3 Neoplasm related pain (acute) (chronic); Z79.82 Long term (current) use of aspirin; Z79.02 Long term (current) use of antithrombotics/antiplatelets; Z86.73 Personal history of transient ischemic attack (TIA), and cerebral infarction without residual deficits; Z87.891 Personal history of nicotine dependence